=== PATIENT | male | born 1945 | race Hispanic/Latino ===

== ENCOUNTER 2017-06-30 18:56 | Inpatient (IN) | payer MEDICARE, MEDICAID ==
[2017-06-30 20:02] VITALS: BMI 22.1
[2017-07-01 07:30] LABS: ALB/GLOB RATIO 1.4 (1.0-2.1); ALKALINE PHOSPHATASE 100 U/L (38-126); ALT/SGPT 32 U/L (21-72); AST/SGOT 18 U/L (17-59); BILIRUBIN,TOTAL 0.4 mg/dl (0.2-1.3); BLOOD UREA NITROGEN 20 mg/dl (9-20); CALCIUM 8.8 mg/dL (8.4-10.2); CARBON DIOXIDE 29 mmol/L (22-30); CHLORIDE 94 mmol/L (98-107); GFR AFRICAN-AMERICAN > 60; GLUCOSE,RANDOM 90 mg/dL (75-110); POTASSIUM 4.7 MMOL/L (3.6-5.0); SODIUM 128 mmol/l (132-148); TOTAL PROTEIN 5.7 G/DL (6.3-8.2)
[2017-07-01 07:31] LABS: MEAN CELL VOLUME 86.4 fl (80.0-94.0); MEAN CORPUSCULAR HEMOGLOBIN 29.9 pg (27.0-31.0); MEAN CORPUSCULAR HGB CONC 34.6 g/dL (33.0-37.0); RED CELL DISTRIBUTION WIDTH 13.3 % (11.5-14.5); WHITE BLOOD COUNT 6.3 K/uL (4.8-10.8)
[2017-07-01 07:58] LABS: THYROID STIMULATING HORMONE 2.07 mIU/ML (0.46-4.68)
[2017-07-01 08:28] LABS: PARTIAL THROMBOPLASTIN TIME 34.8 Seconds (25.6-37.1)
[2017-07-01] MEDS: Multivitamin With Minerals Tab PO SCH (08:46)
--- NOTE | 2017-07-01 12:04 | PSY.TMCNF ---
Nursing - Vital Signs Vital Signs (Last 8 hours): Vital Signs 07/01/17 07:29 Temperature 97.3 F L Pulse Rate 75 Respiratory 20 Rate Blood Pressure 146/85 O2 Sat by Pulse 97 Oximetry Pain: 5 - Bladder Management Bladder Pattern: Normal Voiding Method: Toilet, Urinal - Bowel Management Bowel Pattern: Normal Physical Therapy - Transfers Wheelchair to Mat: Contact Guard - Pain Management Techniques: Medication - Provider Therapist: león License Number: [id number] Occupational Therapy - Arousal/Attention/Orientation Patient Orientation: Person, Place, Time, Appropriate to Age, Appropriate to Situation - Pain Alleviating Techniques: Medication Case Management - Discharge Plan Discharge Plan: Home with significant other/family Rehabilitation Plan - Treatment Plan Treatment Plan: Physical Therapy, Occupational Therapy, Speech, Dietary, Patient /Family Education - Recommendation Recommendation: Physical Therapy, Occupational Therapy, Speech, Dietary, Patient /Family Education - Discharge Plan Discharge to: Home
--- NOTE | 2017-07-01 13:52 | CP.PCM.CON ---
History of Present Illness - History of Present Illness History of Present Illness: 71 year old with subdural admitted for acute rehab Review of Systems - Musculoskeletal Musculoskeletal: Abnormal Gait, Muscle Weakness Past Patient History - Infectious Disease Hx of Infectious Diseases: None - Past Medical History & Family History Past Medical History?: Yes - Past Social History Smoking Status: Former Smoker - CARDIAC Hx Hypertension: Yes Other/Comment: hyponatremia - PULMONARY Hx Respiratory Disorders: No - NEUROLOGICAL Hx Seizures: Yes Other/Comment: h/o meningitis, subdural hematoma - HEENT Hx HEENT Problems: Yes Hx Cataracts: Yes Other/Comment: glasses for reading - RENAL Hx Chronic Kidney Disease: No - ENDOCRINE/METABOLIC Hx Endocrine Disorders: No - HEMATOLOGICAL/ONCOLOGICAL Hx AIDS: No Hx Human Immunodeficiency Virus (HIV): No - INTEGUMENTARY Hx Dermatological Problems: No - MUSCULOSKELETAL/RHEUMATOLOGICAL Hx Arthritis: Yes Hx Falls: Yes (fell on the street and collapsed 06/19/2017) - GASTROINTESTINAL Hx Gastrointestinal Disorders: No - GENITOURINARY/GYNECOLOGICAL Hx Genitourinary Disorders: No - PSYCHIATRIC Hx Substance Use: No - SURGICAL HISTORY Hx Surgeries: Yes Hx Orthopedic Surgery: Yes (LEFT SHOULDER) - ANESTHESIA Hx Anesthesia: Yes Hx Anesthesia Reactions: No Hx Malignant Hyperthermia: No Meds Allergies/Adverse Reactions: Allergies Allergy/AdvReac Type Severity Reaction Status Date / Time No Known Allergies Allergy Verified 06/30/17 20:02 - Medications Medications: Current Medications Acetaminophen (Tylenol 325mg Tab) 650 mg PO Q6 PRN PRN Reason: Headache Famotidine (Pepcid) 40 mg PO DAILY [facility] Last Admin: 07/01/17 08:46 Dose: 40 mg Folic Acid (Folic Acid) 1 mg PO DAILY [facility] Last Admin: 07/01/17 08:46 Dose: 1 mg Multivitamins/Minerals (Therapeutic-M Tab) 1 tab PO DAILY [facility] Last Admin: 07/01/17 08:46 Dose: 1 tab Sodium Chloride (Sodium Chloride Tab) 1 gm PO Q8 [facility] Last Admin: 07/01/17 05:50 Dose: 1 gm Tamsulosin HCl (Flomax) 0.4 mg PO DAILY [facility] Last Admin: 07/01/17 08:46 Dose: 0.4 mg Thiamine HCl (Vitamin B1 Tab) 100 mg PO DAILY [facility] Last Admin: 07/01/17 08:46 Dose: 100 mg Physical Exam - Head Exam Head Exam: ATRAUMATIC, NORMAL INSPECTION, NORMOCEPHALIC - Eye Exam Eye Exam: EOMI, Normal appearance, PERRL Pupil Exam: NORMAL ACCOMODATION - ENT Exam ENT Exam: Mucous Membranes Moist, Normal Exam - Neck Exam Neck exam: Positive for: Normal Inspection - Respiratory Exam Respiratory Exam: NORMAL BREATHING PATTERN - Cardiovascular Exam Cardiovascular Exam: REGULAR RHYTHM - GI/Abdominal Exam GI & Abdominal Exam: Normal Bowel Sounds - Rectal Exam Rectal Exam: NORMAL INSPECTION - Exam External exam: NORMAL EXTERNAL EXAM - Extremities Exam Extremities exam: Positive for: normal inspection - Back Exam Back exam: NORMAL INSPECTION - Neurological Exam Neurological exam: Alert, CN II-XII Intact - Psychiatric Exam Psychiatric exam: Normal Affect - Skin Skin Exam: Normal Color Results - Vital Signs Recent Vital Signs: Last Vital Signs Temp 97.3 F L 07/01/17 07:29 Pulse 75 07/01/17 07:29 Resp 20 07/01/17 07:29 BP 146/85 07/01/17 07:29 Pulse Ox 97 07/01/17 07:29 - Labs Result Diagrams: 07/01/17 06:20 07/01/17 06:20 Labs: Laboratory Results - last 24 hr 07/01/17 07/01/17 07/01/17 06:20 06:20 06:20 WBC 6.3 RBC 3.82 L Hgb 11.4 L Hct 33.0 L MCV 86.4 MCH 29.9 MCHC 34.6 RDW 13.3 Plt Count 285 PT 11.1 INR 1.1 APTT 34.8 Sodium 128 L Potassium 4.7 Chloride 94 L Carbon Dioxide 29 Anion Gap 10 BUN 20 Creatinine 0.9 Est GFR ( Amer) > 60 Est GFR (Non-Af Amer) > 60 Random Glucose 90 Calcium 8.8 Total Bilirubin 0.4 AST 18 ALT 32 Alkaline Phosphatase 100 Total Protein 5.7 L Albumin 3.3 L Globulin 2.4 Albumin/Globulin Ratio 1.4 TSH 3rd Generation 2.07 Assessment & Plan (1) CVA (cerebral vascular accident) Assessment and Plan: plan for physical, occupational, rec . speech therapy for acute rehab for overall plan of care Status: Acute (2) Foot pain Status: Acute (3) Head injury Status: Acute (4) Head injury with skull fracture Status: Acute (5) Hyponatremia Status: Acute Priority: High (6) Hyponatremia Status: Acute (7) Nasal bone fracture Status: Acute (8) Subdural hematoma Status: Acute
--- NOTE | 2017-07-01 13:55 | CP.PCM.PN ---
Subjective - Date & Time of Evaluation Date of Evaluation: 07/01/17 Time of Evaluation: 13:00 - Subjective Subjective: no acute complaint at present Objective - Vital Signs/Intake and Output Vital Signs (last 24 hours): Temp Pulse Resp BP Pulse Ox 97.3 F L 83 20 146/85 99 07/01/17 07:29 07/01/17 11:57 07/01/17 07:29 07/01/17 07:29 07/01/17 11:57 - Medications Medications: Current Medications Acetaminophen (Tylenol 325mg Tab) 650 mg PO Q6 PRN PRN Reason: Headache Famotidine (Pepcid) 40 mg PO DAILY [facility] Last Admin: 07/01/17 08:46 Dose: 40 mg Folic Acid (Folic Acid) 1 mg PO DAILY [facility] Last Admin: 07/01/17 08:46 Dose: 1 mg Multivitamins/Minerals (Therapeutic-M Tab) 1 tab PO DAILY [facility] Last Admin: 07/01/17 08:46 Dose: 1 tab Sodium Chloride (Sodium Chloride Tab) 1 gm PO Q8 [facility] Last Admin: 07/01/17 05:50 Dose: 1 gm Tamsulosin HCl (Flomax) 0.4 mg PO DAILY [facility] Last Admin: 07/01/17 08:46 Dose: 0.4 mg Thiamine HCl (Vitamin B1 Tab) 100 mg PO DAILY [facility] Last Admin: 07/01/17 08:46 Dose: 100 mg - Labs Labs: 07/01/17 06:20 07/01/17 06:20 PT 11.1 Seconds (9.8-13.1) 07/01/17 06:20 INR 1.1 (0.9-1.2) 07/01/17 06:20 APTT 34.8 Seconds (25.6-37.1) 07/01/17 06:20 - Head Exam Head Exam: ATRAUMATIC, NORMAL INSPECTION, NORMOCEPHALIC - Eye Exam Eye Exam: EOMI, Normal appearance, PERRL Pupil Exam: NORMAL ACCOMODATION - ENT Exam ENT Exam: Mucous Membranes Moist, Normal Exam - Neck Exam Neck Exam: Normal Inspection - Respiratory Exam Respiratory Exam: NORMAL BREATHING PATTERN - Cardiovascular Exam Cardiovascular Exam: REGULAR RHYTHM - GI/Abdominal Exam GI & Abdominal Exam: Normal Bowel Sounds - Rectal Exam Rectal Exam: NORMAL INSPECTION - Exam External exam: NORMAL EXTERNAL EXAM - Extremities Exam Extremities Exam: Normal Capillary Refill, Normal Inspection - Neurological Exam Neurological Exam: Alert, Awake Neuro motor strength exam: Left Upper Extremity: 3, Right Upper Extremity: 3, Left Lower Extremity: 3, Right Lower Extremity: 3 - Psychiatric Exam Psychiatric exam: Normal Affect, Normal Mood - Skin Skin Exam: Normal Color Assessment and Plan (1) CVA (cerebral vascular accident) Assessment & Plan: plan for Pt, Ot , REc, speech Status: Acute (2) Foot pain Status: Acute (3) Head injury Status: Acute (4) Head injury with skull fracture Status: Acute (5) Hyponatremia Status: Acute (6) Hyponatremia Status: Acute (7) Nasal bone fracture Status: Acute (8) Subdural hematoma Status: Acute Physiatry Overall Plan of Care - Overall Plan of Care Estimated Length of Stay in Weeks: 2 Rehab Impairment: Mobility, Gait, Balance, Coordination Etiologic Diagnosis: Cerebrovascular Accident Rehab/Medical Prognosis: Fair - Anticipated Interventions Physical Therapy:: Yes Occupational Therapy:: Yes Speech Therapy:: Yes Recreational Therapy:: Yes - Therapy Goals Bed Mobility: Independent Ambulation: Independent Functional Positional Changes:: Independent - Functional Outcomes Functional Outcomes: fair - Discharge Plan Discharge Destination: Home
--- NOTE | 2017-07-01 17:02 | CP.PCM.HP ---
Past Patient History - Infectious Disease Hx of Infectious Diseases: None - Past Medical History & Family History Past Medical History?: Yes - Past Social History Smoking Status: Former Smoker - CARDIAC Hx Hypertension: Yes - PULMONARY Hx Respiratory Disorders: No - NEUROLOGICAL Hx Seizures: Yes Other/Comment: h/o meningitis, subdural hematoma - HEENT Hx HEENT Problems: Yes Hx Cataracts: Yes Other/Comment: glasses for reading - RENAL Hx Chronic Kidney Disease: No - ENDOCRINE/METABOLIC Hx Endocrine Disorders: No - HEMATOLOGICAL/ONCOLOGICAL Hx AIDS: No Hx Human Immunodeficiency Virus (HIV): No - INTEGUMENTARY Hx Dermatological Problems: No - MUSCULOSKELETAL/RHEUMATOLOGICAL Hx Arthritis: Yes Hx Falls: Yes (fell on the street and collapsed 06/19/2017) - GASTROINTESTINAL Hx Gastrointestinal Disorders: No - GENITOURINARY/GYNECOLOGICAL Hx Genitourinary Disorders: No - PSYCHIATRIC Hx Substance Use: No - SURGICAL HISTORY Hx Surgeries: Yes Hx Orthopedic Surgery: Yes (LEFT SHOULDER) - ANESTHESIA Hx Anesthesia: Yes Hx Anesthesia Reactions: No Hx Malignant Hyperthermia: No Meds Allergies/Adverse Reactions: Allergies Allergy/AdvReac Type Severity Reaction Status Date / Time No Known Allergies Allergy Verified 06/30/17 20:02 Results - Vital Signs Recent Vital Signs: Last Vital Signs Temp 97.3 F L 07/01/17 07:29 Pulse 83 07/01/17 11:57 Resp 20 07/01/17 07:29 BP 146/85 07/01/17 07:29 Pulse Ox 99 07/01/17 11:57 - Labs Result Diagrams: 07/01/17 06:20 07/01/17 06:20 Labs: Laboratory Results - last 24 hr 07/01/17 07/01/17 07/01/17 06:20 06:20 06:20 WBC 6.3 RBC 3.82 L Hgb 11.4 L Hct 33.0 L MCV 86.4 MCH 29.9 MCHC 34.6 RDW 13.3 Plt Count 285 PT 11.1 INR 1.1 APTT 34.8 Sodium 128 L Potassium 4.7 Chloride 94 L Carbon Dioxide 29 Anion Gap 10 BUN 20 Creatinine 0.9 Est GFR ( Amer) > 60 Est GFR (Non-Af Amer) > 60 Random Glucose 90 Serum Osmolality Calcium 8.8 Total Bilirubin 0.4 AST 18 ALT 32 Alkaline Phosphatase 100 Total Protein 5.7 L Albumin 3.3 L Globulin 2.4 Albumin/Globulin Ratio 1.4 TSH 3rd Generation 2.07 07/01/17 13:40 WBC RBC Hgb Hct MCV MCH MCHC RDW Plt Count PT INR APTT Sodium Potassium Chloride Carbon Dioxide Anion Gap BUN Creatinine Est GFR ( Amer) Est GFR (Non-Af Amer) Random Glucose Serum Osmolality 359 H Calcium Total Bilirubin AST ALT Alkaline Phosphatase Total Protein Albumin Globulin Albumin/Globulin Ratio TSH 3rd Generation
[2017-07-01] MEDS: Sodium Chloride 0.9% 1,000 ML IV SCH (23:09)
[2017-07-02] MEDS: Sodium Chloride 0.9% 1,000 ML IV SCH ×3 (07:00→16:30)
[2017-07-02 07:14] LABS: BLOOD UREA NITROGEN 19 mg/dl (9-20); CALCIUM 8.6 mg/dL (8.4-10.2); CARBON DIOXIDE 30 mmol/L (22-30); CHLORIDE 92 mmol/L (98-107); GFR AFRICAN-AMERICAN > 60; GLUCOSE,RANDOM 85 mg/dL (75-110); POTASSIUM 4.5 MMOL/L (3.6-5.0); SODIUM 126 mmol/l (132-148)
[2017-07-02] MEDS: Multivitamin With Minerals Tab PO SCH (08:35)
--- NOTE | 2017-07-02 21:32 | CP.PCM.PN ---
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 vs subdural hematoma d/c ns ivf restrict fluids to 1 lit/day c/w nacl 1 gm po q 8 hrs nepro 1 can po bid bmp daily x 3 days consider tolvaptan if serum na <125 with above measures Objective - Vital Signs/Intake and Output Vital Signs (last 24 hours): Temp Pulse Resp BP Pulse Ox 98.4 F 72 20 152/79 H 98 07/02/17 20:16 07/02/17 20:16 07/02/17 20:16 07/02/17 20:16 07/02/17 20:16 - Medications Medications: Current Medications Acetaminophen (Tylenol 325mg Tab) 650 mg PO Q6 PRN PRN Reason: Headache Last Admin: 07/02/17 10:48 Dose: 650 mg Famotidine (Pepcid) 40 mg PO DAILY [facility] Last Admin: 07/02/17 08:34 Dose: 40 mg Folic Acid (Folic Acid) 1 mg PO DAILY [facility] Last Admin: 07/02/17 08:35 Dose: 1 mg Multivitamins/Minerals (Therapeutic-M Tab) 1 tab PO DAILY [facility] Last Admin: 07/02/17 08:35 Dose: 1 tab Sodium Chloride (Sodium Chloride Tab) 1 gm PO Q8 [facility] Last Admin: 07/02/17 21:10 Dose: 1 gm Tamsulosin HCl (Flomax) 0.4 mg PO DAILY [facility] Last Admin: 07/02/17 08:35 Dose: 0.4 mg Thiamine HCl (Vitamin B1 Tab) 100 mg PO DAILY [facility] Last Admin: 07/02/17 08:35 Dose: 100 mg - Labs Labs: 07/01/17 06:20 07/02/17 06:15 PT 11.1 Seconds (9.8-13.1) 07/01/17 06:20 INR 1.1 (0.9-1.2) 07/01/17 06:20 APTT 34.8 Seconds (25.6-37.1) 07/01/17 06:20
--- NOTE | 2017-07-03 03:47 | CON ---
DATE: 07/02/2017 LOCATION: The patient is located in acute rehab in [place], room 620, bed 1. REQUESTED BY: Dr. Bibiana Locke. REASON FOR RENAL FOLLOWUP: Hyponatremia, SIADH, hypertension, for further evaluation. HISTORY OF PRESENT ILLNESS: The patient is a 71-year-old elderly male with past medical history significant for hypertension, EtOH abuse, history of falls, and questionable seizure disorder, and subdural hematoma, who was recently admitted to [facility] on 06/19 after questionable fall and the patient was started on Keppra and tapered off Dilantin. Prior to the initiation of the Keppra, his serum sodium was 132 to 135 and subsequently the patient was discharged home on 06/26, and the patient's family found he has altered mental status and unsteady gait, and the patient was sent back to the hospital for evaluation by the family and the patient was found to have a serum sodium of 110. Subsequently, the patient was transferred to ICU from the medical floor for hypertonic saline. The patient was started on 3% hypertonic saline and his serum sodium gradually improved to 125 in 48 hours and also received tolvaptan 15 mg x2 in 2 days, day one 15 mg and also on second day 15 mg and subsequently his serum sodium increased to 135. Now, the patient was transferred from [facility] to acute rehab in [place]. The patient denies any complaints. Denies any chest pain, palpitation. Denies any fever, cough. No abdominal pain. No nausea, vomiting, diarrhea. The patient is receiving IV fluids, normal saline at 125 mL per hour for possible dehydration. The patient was found to have low serum sodium and now renal consult requested for the evaluation. The patient is not in acute distress. PHYSICAL EXAMINATION GENERAL: The patient is a 71-year-old elderly male, moderately built, moderately nourished, not in acute distress. VITAL SIGNS: Blood pressure 152/79, pulse 72, respiration 20, temperature 98.4, saturation 98%. Height 5 feet 8 inches and weight is 125 pounds. HEENT: Pupils normal, reactive to light and accommodation. Conjunctivae pink. Sclerae anicteric. Tongue is moist. Trachea is midline. NECK: Text. CVS: [place] in the fifth intercostal space, also in the midclavicular line. S1, S2 audible. No murmur or gallop. LUNGS: Symmetric on both side. Bilateral breath sounds. Clear on auscultation. ABDOMEN: Normal in appearance, soft. No guarding. No rigidity. No hepatosplenomegaly. EXTREMITIES: No cyanosis, no clubbing, no edema. CAN CRIMPER: The patient is alert, awake, oriented x2 to 3. Sensory and motor system is within normal limits. CURRENT MEDICATIONS: Include as follows, Flomax 0.4 mg p.o. daily and folic acid 1 mg p.o. daily and Pepcid 40 mg p.o. daily, and sodium chloride tablet 1 g p.o. q.8 hours, and multivitamin 1 tablet daily, Tylenol and thiamine 100 mg p.o. daily. LABORATORY DATA: Include as follows, as of 07/01/2017, WBC 6.3, hemoglobin 11.4, hematocrit is 33, and platelets 285. PT 11.1, PTT34.8. Sodium 128, potassium 4.7, chloride 94, CO2 of 29, BUN 20, creatinine 0.9, glucose 90, calcium 8.8, total bilirubin 0.4. AST 18, ALT 32, alkaline phosphatase 100. Total protein 5.7, albumin 3.3. TSH is 2.07. Other laboratory data, 07/01/2017, serum osmolality 359, most likely this is a lab error and also urine osmolality 559, and urine sodium is 73, and his repeat BMP as of 07/02/2017, sodium 126, potassium 4.5, chloride 92, CO2 of 30, BUN 19, creatinine 0.8, glucose 85, and calcium is 8.6, and his repeat serum osmolality stat was 265. In summary, the patient is a 71-year-old elderly male with a history of EtOH abuse, hypertension, recurrent falls, and also subdural hematoma with low serum sodium after starting Keppra and now the patient is off Keppra, but still serum sodium is low and urine osmolality is very high with urine sodium more than 20. 1. Hyponatremia, most likely secondary to SIADH, secondary to subdural hematoma. Consider to rule out underlying malignancy in the setting of SIADH. 2. Hypertension. Blood pressure is stable. 3. Debility. Continue physical therapy as per the rehab recommendations. PLAN: Continue sodium chloride tablet 1 g p.o. q.8 hours and also we will add Nepro 1 can p.o. b.i.d. to increase the protein in the diet and if serum sodium goes down below 125, we will consider to give tolvaptan 15 mg p.o. x1 dose. Repeat BMP in a.m. and discontinued normal saline IV fluids. We will followup with you. Thank you for allowing me to participate in your patient's care and discuss case with Dr. Bibiana Locke in rounds. Kevin Mullins MD
[2017-07-03 07:24] LABS: BLOOD UREA NITROGEN 20 mg/dl (9-20); CALCIUM 8.5 mg/dL (8.4-10.2); CARBON DIOXIDE 30 mmol/L (22-30); CHLORIDE 88 mmol/L (98-107); GFR AFRICAN-AMERICAN > 60; GLUCOSE,RANDOM 81 mg/dL (75-110); POTASSIUM 4.7 MMOL/L (3.6-5.0); SODIUM 121 mmol/l (132-148)
[2017-07-03] MEDS: Multivitamin With Minerals Tab PO SCH (08:41)
[2017-07-03] MEDS ORDERED: Tolvaptan 15 MG TAB PO ONE (11:06)
--- NOTE | 2017-07-03 12:33 | CP.PCM.PN ---
Subjective - Date & Time of Evaluation Date of Evaluation: 07/03/17 Time of Evaluation: 12:10 Objective - Vital Signs/Intake and Output Vital Signs (last 24 hours): Temp Pulse Resp BP Pulse Ox 97.3 F L 79 20 144/82 99 07/03/17 07:52 07/03/17 07:52 07/03/17 07:52 07/03/17 07:52 07/03/17 07:52 Intake and Output: 07/03/17 07/03/17 06:59 18:59 Intake Total 300 Output Total 1000 Balance -700 - Medications Medications: Current Medications Acetaminophen (Tylenol 325mg Tab) 650 mg PO Q6 PRN PRN Reason: Headache Last Admin: 07/02/17 10:48 Dose: 650 mg Famotidine (Pepcid) 40 mg PO DAILY [facility] Last Admin: 07/03/17 08:41 Dose: 40 mg Folic Acid (Folic Acid) 1 mg PO DAILY [facility] Last Admin: 07/03/17 08:41 Dose: 1 mg Multivitamins/Minerals (Therapeutic-M Tab) 1 tab PO DAILY [facility] Last Admin: 07/03/17 08:41 Dose: 1 tab Sodium Chloride (Sodium Chloride Tab) 1 gm PO Q8 [facility] Last Admin: 07/03/17 06:29 Dose: 1 gm Tamsulosin HCl (Flomax) 0.4 mg PO DAILY [facility] Last Admin: 07/03/17 08:41 Dose: 0.4 mg Thiamine HCl (Vitamin B1 Tab) 100 mg PO DAILY [facility] Last Admin: 07/03/17 08:42 Dose: 100 mg - Labs Labs: 07/01/17 06:20 07/03/17 06:25 PT 11.1 Seconds (9.8-13.1) 07/01/17 06:20 INR 1.1 (0.9-1.2) 07/01/17 06:20 APTT 34.8 Seconds (25.6-37.1) 07/01/17 06:20
--- NOTE | 2017-07-03 13:13 | CP.PCM.CON ---
History of Present Illness - History of Present Illness History of Present Illness: 71 year old male with PMH of HTN, CVA, subdural hemorrhage, seizures was consulted for elongated toenails x10. Patient states that when they get extremely long, the nails bother him, especially when wearing socks. Patient is seen resting comfortably out of bed, in a chair. He is alert and awake and in NAD. He denies n/v/sob/cp/chill or f. SH: former smoker 1-2packs/day, denies alcohol use or elicited drug use Allergies: NKDA Meds: see list FH: mother diabetes, father heart disease Past Patient History - Infectious Disease Hx of Infectious Diseases: None - Past Medical History & Family History Past Medical History?: Yes - Past Social History Smoking Status: Former Smoker - CARDIAC Hx Hypertension: Yes - PULMONARY Hx Respiratory Disorders: No - NEUROLOGICAL Hx Seizures: Yes Other/Comment: h/o meningitis, subdural hematoma - HEENT Hx HEENT Problems: Yes Hx Cataracts: Yes Other/Comment: glasses for reading - RENAL Hx Chronic Kidney Disease: No - ENDOCRINE/METABOLIC Hx Endocrine Disorders: No - HEMATOLOGICAL/ONCOLOGICAL Hx AIDS: No Hx Human Immunodeficiency Virus (HIV): No - INTEGUMENTARY Hx Dermatological Problems: No - MUSCULOSKELETAL/RHEUMATOLOGICAL Hx Arthritis: Yes Hx Falls: Yes (fell on the street and collapsed 06/19/2017) - GASTROINTESTINAL Hx Gastrointestinal Disorders: No - GENITOURINARY/GYNECOLOGICAL Hx Genitourinary Disorders: No - PSYCHIATRIC Hx Substance Use: No - SURGICAL HISTORY Hx Surgeries: Yes Hx Orthopedic Surgery: Yes (LEFT SHOULDER) - ANESTHESIA Hx Anesthesia: Yes Hx Anesthesia Reactions: No Hx Malignant Hyperthermia: No Meds Allergies/Adverse Reactions: Allergies Allergy/AdvReac Type Severity Reaction Status Date / Time No Known Allergies Allergy Verified 06/30/17 20:02 - Medications Medications: Current Medications Acetaminophen (Tylenol 325mg Tab) 650 mg PO Q6 PRN PRN Reason: Headache Last Admin: 07/02/17 10:48 Dose: 650 mg Famotidine (Pepcid) 40 mg PO DAILY [facility] Last Admin: 07/03/17 08:41 Dose: 40 mg Folic Acid (Folic Acid) 1 mg PO DAILY [facility] Last Admin: 07/03/17 08:41 Dose: 1 mg Multivitamins/Minerals (Therapeutic-M Tab) 1 tab PO DAILY [facility] Last Admin: 07/03/17 08:41 Dose: 1 tab Sodium Chloride (Sodium Chloride Tab) 1 gm PO Q8 [facility] Last Admin: 07/03/17 06:29 Dose: 1 gm Tamsulosin HCl (Flomax) 0.4 mg PO DAILY [facility] Last Admin: 07/03/17 08:41 Dose: 0.4 mg Thiamine HCl (Vitamin B1 Tab) 100 mg PO DAILY [facility] Last Admin: 07/03/17 08:42 Dose: 100 mg Physical Exam - Constitutional Appears: Well, Non-toxic, No Acute Distress - Extremities Exam Additional comments: Vasc: DP and PT faintly palpable, temperature is cool to cool, no edema noted, 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 x10 Ortho: no pain with palpation of the lower extremity Neuro: gross sensation diminished bilaterally Derm: xerosis of the entire lower extremity, no open lesions, nails 1-10 elongated - Neurological Exam Neurological exam: Alert - Psychiatric Exam Psychiatric exam: Normal Affect, Normal Mood Results - Vital Signs Recent Vital Signs: Last Vital Signs Temp 97.3 F L 07/03/17 07:52 Pulse 79 07/03/17 07:52 Resp 20 07/03/17 07:52 BP 144/82 07/03/17 07:52 Pulse Ox 99 07/03/17 07:52 - Labs Result Diagrams: 07/01/17 06:20 07/03/17 06:25 Labs: Laboratory Results - last 24 hr 07/02/17 07/03/17 20:00 06:25 Sodium 121 L Potassium 4.7 Chloride 88 L Carbon Dioxide 30 Anion Gap 8 L BUN 20 Creatinine 0.8 Est GFR ( Amer) > 60 Est GFR (Non-Af Amer) > 60 Random Glucose 81 Serum Osmolality 265 L Calcium 8.5 Assessment & Plan - Assessment and Plan (Free Text) Assessment: 71 year old male with PMH of HTN, CVA, subdural hemorrhage, seizures with elongated toenails x10. Plan: -Patient was seen and examined -Charts, labs, vitals reviewed (afebrile) -Discuss plan with attending Dr. Rodriguez -Elongated toenails x10 were debrided to normal length using a nail nipper without incident. Patient tolerated the procedure well -Thank you for the consult
--- NOTE | 2017-07-03 18:42 | PN ---
SUBJECTIVE: The patient is feeling fine, 71-year-old, admitted because status post subdural hematoma. The patient sitting in the chair, following commands, no acute complaints noted at present. PHYSICAL EXAMINATION: VITAL SIGNS: Stable. NECK: Supple. CHEST: Symmetrical. HEART: Sounds S1 and S2. ABDOMEN: Benign. EXTREMITIES: No clubbing, cyanosis, or edema. IMPRESSION: 1. Subdural hematoma, ICD code of 02.22. 2. History of seizures. 3. Hypertension. 4. Hyponatremia. 5. History of falls, cataract. 6. History of meningitis. PLAN: For physical therapy, occupational therapy, speech therapy, range of motion strengthening, transfers, ambulation, gait training, recreational therapy, continue strengthening and monitor any problems with pain. Andrzej Lucas MD
--- NOTE | 2017-07-03 20:34 | CP.PCM.PN ---
Subjective - Date & Time of Evaluation Date of Evaluation: 07/03/17 Time of Evaluation: 20:34 - Subjective Subjective: pt is seen and examined, follow up consult is dictated #[id number] Objective - Vital Signs/Intake and Output Vital Signs (last 24 hours): Temp Pulse Resp BP Pulse Ox 97.3 F L 79 20 144/82 99 07/03/17 07:52 07/03/17 07:52 07/03/17 07:52 07/03/17 07:52 07/03/17 07:52 Intake and Output: 07/03/17 07/04/17 18:59 06:59 Intake Total 800 Balance 800 - Medications Medications: Current Medications Acetaminophen (Tylenol 325mg Tab) 650 mg PO Q6 PRN PRN Reason: Headache Last Admin: 07/02/17 10:48 Dose: 650 mg Famotidine (Pepcid) 40 mg PO DAILY [facility] Last Admin: 07/03/17 08:41 Dose: 40 mg Folic Acid (Folic Acid) 1 mg PO DAILY [facility] Last Admin: 07/03/17 08:41 Dose: 1 mg Multivitamins/Minerals (Therapeutic-M Tab) 1 tab PO DAILY [facility] Last Admin: 07/03/17 08:41 Dose: 1 tab Sodium Chloride (Sodium Chloride Tab) 1 gm PO Q8 [facility] Last Admin: 07/03/17 14:03 Dose: 1 gm Tamsulosin HCl (Flomax) 0.4 mg PO DAILY [facility] Last Admin: 07/03/17 08:41 Dose: 0.4 mg Thiamine HCl (Vitamin B1 Tab) 100 mg PO DAILY [facility] Last Admin: 07/03/17 08:42 Dose: 100 mg - Labs Labs: 07/01/17 06:20 07/03/17 06:25 PT 11.1 Seconds (9.8-13.1) 07/01/17 06:20 INR 1.1 (0.9-1.2) 07/01/17 06:20 APTT 34.8 Seconds (25.6-37.1) 07/01/17 06:20
--- NOTE | 2017-07-04 07:28 | PN ---
The patient has located in [facility] in room #620, bed 1. REQUESTED BY: Dr. Bibiana Malone. REASON FOR FOLLOWUP: Hyponatremia and SIADH. SUBJECTIVE: Mr. Knox is a 71-year-old elderly male with a history of hypertension, EtOH abuse, history of falls and subdural hematoma who was recently admitted on 06/26/2017 to [facility] after he was discharged from the hospital on the same day with altered mental status and unsteady gait. The patient was found to have hyponatremia, serum sodium 110 with altered mental status and treated with hypertonic saline and tolvaptan. The patient was subsequently transferred to acute rehab. The patient was started on IV fluids, normal saline and his serum sodium gradually decreasing and his serum sodium this morning is 121. The patient is not in acute distress. Denies any headache or dizziness. Denies any chest pian, palpitation, not in acute distress. No nausea or vomiting. No diarrhea. The patient is off IV fluids since yesterday last night. The patient was given 1 dose of tolvaptan this morning. PHYSICAL EXAMINATION VITAL SIGNS: As follows, blood pressure 138/79, pulse 76, respirations 20, temperature 97 and saturation 99%. Height 5 feet 8 inches, and weight is 145 pounds. GENERAL: Mr. Knox is 71 years old elderly male, moderately built, moderately nourished, not in acute distress. HEENT: Pupils normal, reactive to light and accommodation. Conjunctivae pink. Sclerae anicteric. Tongue is moist. Trachea is midline. LUNGS: Symmetric on both side. Bilateral breath sounds present. Clear on auscultation. CVS: [place] at the fifth intercostal space, midclavicular line, half inch medial. S1 and S2 audible. No murmur or gallop. ABDOMEN: Normal in appearance, soft and tympanitic. No guarding. No rigidity. No hepatosplenomegaly. CONTROL DIRECTOR: The patient is alert, awake and oriented x2-3. Sensory and motor system is within normal limits. EXTREMITIES: No cyanosis. No clubbing. No edema. CURRENT MEDICATIONS: Include as follows, Flomax 0.4 mg p.o. daily, folic acid 1 mg p.o. daily, Pepcid 40 mg p.o. daily, sodium chloride tablet 1 g p.o. q.8 hours, multivitamin 1 tablet p.o. daily, Tylenol, and thiamine 100 mg p.o. daily. LABORATORY DATA: Include as follows, as of 07/02/2017, serum sodium is 126, as of 07/03/2017 to 121, 07/01/2017 serum sodium is 128, and prior to the transfer, his serum sodium was 125. ASSESSMENT: In summary, Mr. Knox is 71 years old elderly male with history of hypertension, EtOH abuse, recurrent falls with subdural hematoma and now with hyponatremia. Hyponatremia secondary to hypotonic euvolemic hyponatremia, picture is consist with syndrome of inappropriate antidiuretic hormone most likely secondary to subdural hematoma, rule out underlying malignancy also. PLAN: 1. Continue sodium chloride tablet 1 tablet q.8 hours and tolvaptan 15 mg p.o , x1 dose given this morning and repeat BMP in a.m. 2. Hypertension, blood pressure is stable. 3. Debility. Continue physical therapy as per the rehab physician. We will follow with you. Thank you for allowing me to participate in your patient's care. Kevin Mullins MD
[2017-07-04] MEDS: Multivitamin With Minerals Tab PO SCH (08:26)
[2017-07-04 08:56] LABS: BLOOD UREA NITROGEN 29 mg/dl (9-20); CALCIUM 9.1 mg/dL (8.4-10.2); CARBON DIOXIDE 33 mmol/L (22-30); CHLORIDE 95 mmol/L (98-107); GFR AFRICAN-AMERICAN > 60; GLUCOSE,RANDOM 87 mg/dL (75-110); POTASSIUM 4.8 MMOL/L (3.6-5.0); SODIUM 133 mmol/l (132-148)
--- NOTE | 2017-07-04 13:41 | CP.PCM.PN ---
Subjective - Date & Time of Evaluation Date of Evaluation: 07/04/17 Time of Evaluation: 13:40 - Subjective Subjective: pt is seen and examined ,follow up consult is dictated #[id number] Objective - Vital Signs/Intake and Output Vital Signs (last 24 hours): Temp Pulse Resp BP Pulse Ox 96.7 F L 91 H 18 98/70 L 97 07/04/17 10:12 07/04/17 13:25 07/04/17 13:25 07/04/17 13:25 07/04/17 10:15 - Medications Medications: Current Medications Acetaminophen (Tylenol 325mg Tab) 650 mg PO Q6 PRN PRN Reason: Headache Last Admin: 07/04/17 10:12 Dose: 650 mg Famotidine (Pepcid) 40 mg PO DAILY [facility] Last Admin: 07/04/17 08:26 Dose: 40 mg Folic Acid (Folic Acid) 1 mg PO DAILY [facility] Last Admin: 07/04/17 08:26 Dose: 1 mg Multivitamins/Minerals (Therapeutic-M Tab) 1 tab PO DAILY [facility] Last Admin: 07/04/17 08:26 Dose: 1 tab Sodium Chloride (Sodium Chloride Tab) 1 gm PO Q8 [facility] Last Admin: 07/04/17 13:23 Dose: 1 gm Tamsulosin HCl (Flomax) 0.4 mg PO DAILY [facility] Last Admin: 07/04/17 08:26 Dose: 0.4 mg Thiamine HCl (Vitamin B1 Tab) 100 mg PO DAILY [facility] Last Admin: 07/04/17 08:26 Dose: 100 mg - Labs Labs: 07/01/17 06:20 07/04/17 06:30 PT 11.1 Seconds (9.8-13.1) 07/01/17 06:20 INR 1.1 (0.9-1.2) 07/01/17 06:20 APTT 34.8 Seconds (25.6-37.1) 07/01/17 06:20
--- NOTE | 2017-07-04 20:20 | PN ---
LOCATION: The patient is located in room 620, acute rehab, in [facility]. SUBJECTIVE: The patient is a 71-year-old elderly male with a history of EtOH abuse, hypertension, recurrent falls and subdural hematoma, was transferred to subacute rehab after treating for hyponatremia and SIADH. The patient is not in acute distress. The patient was found to have worsening sodium and found to have serum sodium of 121 and started on tolvaptan 15 mg p.o. x1 dose and also serum sodium is 133. The patient is not in acute distress. Denies any headache, dizziness. Denies any chest pain or palpitation. Denies any fever or cough. No abdominal pain. No nausea, vomiting, or diarrhea. PHYSICAL EXAMINATION: VITAL SIGNS: This morning blood pressure 111/68, pulse 72, respiration 20, temperature 97.6 and this afternoon blood pressure 98/70. GENERAL: The patient is a 71-year-old elderly male, moderately built, moderately nourished, not in acute distress. HEENT: Pupils normal, reactive to light and accommodation. Conjunctivae pink. Sclerae anicteric. Tongue is moist. Trachea is midline. LUNGS: Symmetric on both side. Bilateral breath sounds present. Clear on auscultation. CARDIOVASCULAR: [place] in the fifth intercostal space, also in the midclavicular line. S1 and S2 audible. No murmur or gallop. ABDOMEN: Normal in appearance, soft and tympanic. No guarding. No rigidity. No hepatosplenomegaly. CENTRAL NERVOUS SYSTEM: The patient is alert, awake and oriented x2-3. Sensory and motor system is grossly within normal limits. EXTREMITIES: No cyanosis, no clubbing, no edema. MEDICATIONS: Include as follows: Flomax 0.4 mg daily, folic acid 1 mg daily, Pepcid 40 mg daily, sodium chloride tablet 1 g p.o. q. 8 hours, multivitamins 1 tablet daily, Tylenol and also thiamine 100 mg p.o. daily. LABORATORY DATA: Include as follows: As of 07/04/2017, sodium 133, potassium 4.8, chloride 95, CO2 of 33, BUN 29, creatinine 0.9, glucose 87, calcium 9.1. In summary, the patient is a 71-year-old elderly male with a history of hypertension, EtOH abuse, subdural hematoma, recurrent falls with SIADH. 1. Hyponatremia, secondary to SIADH. Continue sodium chloride tablet 1 p.o. q. 8 hours, and we will also start D5W of 50 mL/hour for 12 hours due to slightly high serum sodium raise in 24 hours. The goal is about 10 mEq for 24 hours re-lowering the serum sodium slightly. 2. Hypertension. Blood pressure is on the low side. Hold antihypertensive medications and also I encouraged p.o. fluid intake today. Repeat BMP in a.m. 3. Continue his current medication of Flomax, folic acid, Pepcid, multivitamin, and thiamine. Continue physical therapy. We will follow with you. Thank you for allowing me to participate in your patient's care. Kevin Mullins MD
--- NOTE | 2017-07-04 23:15 | CP.PCM.PN ---
Subjective - Date & Time of Evaluation Date of Evaluation: 07/04/17 Time of Evaluation: 15:15 Objective - Vital Signs/Intake and Output Vital Signs (last 24 hours): Temp Pulse Resp BP Pulse Ox 97.9 F 81 20 96/58 L 97 07/04/17 20:26 07/04/17 20:26 07/04/17 20:26 07/04/17 20:26 07/04/17 20:26 Intake and Output: 07/04/17 07/05/17 18:59 06:59 Intake Total 1380 Output Total 500 Balance 880 - Medications Medications: Current Medications Acetaminophen (Tylenol 325mg Tab) 650 mg PO Q6 PRN PRN Reason: Headache Last Admin: 07/04/17 10:12 Dose: 650 mg Famotidine (Pepcid) 40 mg PO DAILY [facility] Last Admin: 07/04/17 08:26 Dose: 40 mg Folic Acid (Folic Acid) 1 mg PO DAILY [facility] Last Admin: 07/04/17 08:26 Dose: 1 mg Dextrose (Dextrose 5% In Water 1000 Ml) 500 mls @ 50 mls/hr IV .Q10H [facility] Stop: 07/05/17 02:18 Last Admin: 07/04/17 15:11 Dose: 50 mls/hr Multivitamins/Minerals (Therapeutic-M Tab) 1 tab PO DAILY [facility] Last Admin: 07/04/17 08:26 Dose: 1 tab Sodium Chloride (Sodium Chloride Tab) 1 gm PO Q8 [facility] Last Admin: 07/04/17 21:07 Dose: 1 gm Tamsulosin HCl (Flomax) 0.4 mg PO DAILY [facility] Last Admin: 07/04/17 08:26 Dose: 0.4 mg Thiamine HCl (Vitamin B1 Tab) 100 mg PO DAILY [facility] Last Admin: 07/04/17 08:26 Dose: 100 mg - Labs Labs: 07/01/17 06:20 07/04/17 06:30 PT 11.1 Seconds (9.8-13.1) 07/01/17 06:20 INR 1.1 (0.9-1.2) 07/01/17 06:20 APTT 34.8 Seconds (25.6-37.1) 07/01/17 06:20
[2017-07-05] MEDS: Multivitamin With Minerals Tab PO SCH (08:59)
[2017-07-05 10:22] LABS: BLOOD UREA NITROGEN 34 mg/dl (9-20); CALCIUM 8.8 mg/dL (8.4-10.2); CARBON DIOXIDE 32 mmol/L (22-30); CHLORIDE 95 mmol/L (98-107); GFR AFRICAN-AMERICAN > 60; GLUCOSE,RANDOM 91 mg/dL (75-110); POTASSIUM 4.1 MMOL/L (3.6-5.0); SODIUM 132 mmol/l (132-148)
--- NOTE | 2017-07-05 12:49 | CP.PCM.PN ---
Subjective - Date & Time of Evaluation Date of Evaluation: 07/05/17 Time of Evaluation: 12:47 - Subjective Subjective: pt is seen and examined, follow up consult is dictated #[id number] bmp in am, check psa, cea, ca19-9, afp in am d5w 50ml /hr 12 hrs Objective - Vital Signs/Intake and Output Vital Signs (last 24 hours): Temp Pulse Resp BP Pulse Ox 97.8 F 84 20 125/59 L 97 07/05/17 08:00 07/05/17 08:00 07/05/17 08:00 07/05/17 08:00 07/05/17 08:00 Intake and Output: 07/05/17 07/05/17 06:59 18:59 Intake Total 900 Output Total 700 Balance 200 - Medications Medications: Current Medications Acetaminophen (Tylenol 325mg Tab) 650 mg PO Q6 PRN PRN Reason: Headache Last Admin: 07/04/17 10:12 Dose: 650 mg Famotidine (Pepcid) 40 mg PO DAILY [facility] Last Admin: 07/05/17 08:59 Dose: 40 mg Folic Acid (Folic Acid) 1 mg PO DAILY [facility] Last Admin: 07/05/17 09:00 Dose: 1 mg Dextrose (Dextrose 5% In Water 1000 Ml) 1,000 mls @ 50 mls/hr IV .Q20H [facility] Stop: 07/06/17 11:17 Last Admin: 07/05/17 11:44 Dose: 50 mls/hr Multivitamins/Minerals (Therapeutic-M Tab) 1 tab PO DAILY [facility] Last Admin: 07/05/17 08:59 Dose: 1 tab Sodium Chloride (Sodium Chloride Tab) 1 gm PO Q8 [facility] Last Admin: 07/05/17 06:03 Dose: 1 gm Tamsulosin HCl (Flomax) 0.4 mg PO DAILY [facility] Last Admin: 07/05/17 08:59 Dose: 0.4 mg Thiamine HCl (Vitamin B1 Tab) 100 mg PO DAILY [facility] Last Admin: 07/05/17 08:59 Dose: 100 mg - Labs Labs: 07/01/17 06:20 07/05/17 09:30 PT 11.1 Seconds (9.8-13.1) 07/01/17 06:20 INR 1.1 (0.9-1.2) 07/01/17 06:20 APTT 34.8 Seconds (25.6-37.1) 07/01/17 06:20
[2017-07-05] MEDS ORDERED: DEXTROSE 5% IV SCH (13:31)
[2017-07-05] MEDS ORDERED: WATER IV SCH (13:31)
--- NOTE | 2017-07-05 15:17 | CP.PCM.PN ---
Subjective - Date & Time of Evaluation Date of Evaluation: 07/04/17 Time of Evaluation: 08:00 - Subjective Subjective: no acute complaints at present Objective - Vital Signs/Intake and Output Vital Signs (last 24 hours): Temp Pulse Resp BP Pulse Ox 97.8 F 84 20 125/59 L 97 07/05/17 08:00 07/05/17 08:00 07/05/17 08:00 07/05/17 08:00 07/05/17 08:00 Intake and Output: 07/05/17 07/05/17 06:59 18:59 Intake Total 900 Output Total 700 Balance 200 - Medications Medications: Current Medications Acetaminophen (Tylenol 325mg Tab) 650 mg PO Q6 PRN PRN Reason: Headache Last Admin: 07/04/17 10:12 Dose: 650 mg Famotidine (Pepcid) 40 mg PO DAILY [facility] Last Admin: 07/05/17 08:59 Dose: 40 mg Folic Acid (Folic Acid) 1 mg PO DAILY [facility] Last Admin: 07/05/17 09:00 Dose: 1 mg Dextrose (Dextrose 5% In Water 1000 Ml) 600 mls @ 50 mls/hr IV .Q12H [facility] Stop: 07/05/17 23:44 Last Admin: 07/05/17 14:17 Dose: 50 mls/hr Multivitamins/Minerals (Therapeutic-M Tab) 1 tab PO DAILY [facility] Last Admin: 07/05/17 08:59 Dose: 1 tab Sodium Chloride (Sodium Chloride Tab) 1 gm PO Q8 [facility] Last Admin: 07/05/17 13:50 Dose: 1 gm Tamsulosin HCl (Flomax) 0.4 mg PO DAILY [facility] Last Admin: 07/05/17 08:59 Dose: 0.4 mg Thiamine HCl (Vitamin B1 Tab) 100 mg PO DAILY [facility] Last Admin: 07/05/17 08:59 Dose: 100 mg - Labs Labs: 07/01/17 06:20 07/05/17 09:30 PT 11.1 Seconds (9.8-13.1) 07/01/17 06:20 INR 1.1 (0.9-1.2) 07/01/17 06:20 APTT 34.8 Seconds (25.6-37.1) 07/01/17 06:20 - Head Exam Head Exam: ATRAUMATIC, NORMAL INSPECTION, NORMOCEPHALIC - Eye Exam Eye Exam: EOMI, Normal appearance Pupil Exam: NORMAL ACCOMODATION - ENT Exam ENT Exam: Mucous Membranes Moist, Normal Exam - Neck Exam Neck Exam: Normal Inspection - Respiratory Exam Respiratory Exam: NORMAL BREATHING PATTERN - Cardiovascular Exam Cardiovascular Exam: REGULAR RHYTHM - GI/Abdominal Exam GI & Abdominal Exam: Normal Bowel Sounds - Rectal Exam Rectal Exam: NORMAL INSPECTION - Exam External exam: NORMAL EXTERNAL EXAM - Extremities Exam Extremities Exam: Normal Inspection - Back Exam Back Exam: NORMAL INSPECTION - Neurological Exam Neurological Exam: Alert, Awake Neuro motor strength exam: Left Upper Extremity: 3, Right Upper Extremity: 3, Left Lower Extremity: 3, Right Lower Extremity: 3 - Psychiatric Exam Psychiatric exam: Normal Affect, Normal Mood - Skin Skin Exam: Dry Assessment and Plan (1) CVA (cerebral vascular accident) Assessment & Plan: plan for physical, occupational, rec therapy monitor skin and labs Status: Acute (2) Foot pain Status: Acute (3) Head injury Status: Acute (4) Head injury with skull fracture Status: Acute (5) Hyponatremia Status: Acute (6) Hyponatremia Status: Acute (7) Nasal bone fracture Status: Acute (8) Subdural hematoma Status: Acute
--- NOTE | 2017-07-05 17:39 | CON ---
DATE: LOCATION: Room 620, bed 1. REQUESTING PHYSICIAN: Dr. Bibiana Malone. REASON FOR CONSULTATION: Hyponatremia and SIADH. SUBJECTIVE: Mr. Knox is a 71-year-old elderly male with a history of EtOH abuse, hypertension, multiple falls and subdural hematoma, was recently admitted to [facility] on 06/26/2017 with altered mental status and unsteady gait. The patient was found to have serum sodium 110 subsequently his serum sodium improved with hypertonic saline 3% and tolvaptan until 135 and subsequently transferred to acute rehab. The patient is feeling better, not in acute distress. Denies any chest pain or palpitation. Denies any fever or cough today. The patient is out of bed to chair. PHYSICAL EXAMINATION: VITAL SIGNS: This morning as follows; blood pressure 125/59, pulse 84, respiration 20, temperature 97.8 and saturations 97%. Height 5 feet 8 inches and weight is 145 pounds. GENERAL: Mr. Knox is a 71-year-old elderly male, moderately built, moderately nourished, not in acute distress. HEENT: Pupils normal, reactive to light and accommodation. Conjunctivae pink. Sclerae anicteric. Tongue is moist. Trachea is midline. LUNGS: Symmetric on both side. Bilateral breath sounds present. Clear on auscultation. CARDIOVASCULAR: [place] at the fifth intercostal space, midclavicular line. S1 and S2 audible. No murmur or gallop. ABDOMEN: Normal in appearance, soft and tympanic. No guarding. No rigidity. No hepatosplenomegaly. CENTRAL NERVOUS SYSTEM: The patient is alert, awake and oriented x2-3. Sensory and motor system is within normal limits. EXTREMITIES: No cyanosis, no clubbing, no edema. MEDICATIONS: Current medications include as follows: Thiamine 100 mg daily, Flomax 0.4 mg daily, sodium chloride tablet 1 g p.o. q. 8 hours, multivitamins 1 tablet daily, folic acid 1 mg daily, Pepcid 40 mg daily, and Tylenol 650 mg p.o. q.6 hours p.r.n. LABORATORY DATA: Include as follows: As of 07/05/2017, sodium 132, potassium 4.1, chloride 95, CO2 of 32, BUN 34, creatinine 0.9, glucose 91, calcium 8.8. ASSESSMENT: In summary, Mr. Knox is a 71-year-old elderly male with a history of hypertension, EtOH abuse, questionable seizure disorder, subdural hematoma was admitted with hyponatremia and found to have syndrome of inappropriate antidiuretic hormone in [facility] treated with 3% hypertonic saline and tolvaptan and serum sodium increased 110 to 135 prior to the transfer to subacute rehab. The patient was started on IV fluids in the [facility], normal saline and subsequently serum sodium drop to 121 on 07/03/2017 and the patient was given tolvaptan and serum sodium improved to 133 yesterday and today the serum sodium is 132. 1. Hyponatremia, secondary to syndrome of inappropriate antidiuretic hormone secondary to most likely subd[facility] hemat[facility]. 2. Mild prerenal azotemia. 3. Status post fall and subdural hematoma. PLAN: 1. We will labelize fluid today and also we will give D5W 50 mL/hour 1 L and discontinue IV fluids afterwards and repeat BMP in a.m. and check PSA, CEA, CA-19-9, alpha fetoprotein. We will follow with you. Thank you for allowing me to participate in your patient's care. BMP in a.m. Kevin Mullins MD
--- NOTE | 2017-07-05 23:56 | CP.PCM.PN ---
Subjective - Date & Time of Evaluation Date of Evaluation: 07/05/17 Time of Evaluation: 16:05 Objective - Vital Signs/Intake and Output Vital Signs (last 24 hours): Temp Pulse Resp BP Pulse Ox 97.3 F L 78 20 120/61 97 07/05/17 20:38 07/05/17 20:38 07/05/17 20:38 07/05/17 20:38 07/05/17 20:38 Intake and Output: 07/05/17 07/06/17 18:59 06:59 Intake Total 1210 Balance 1210 - Medications Medications: Current Medications Acetaminophen (Tylenol 325mg Tab) 650 mg PO Q6 PRN PRN Reason: Headache Last Admin: 07/04/17 10:12 Dose: 650 mg Famotidine (Pepcid) 40 mg PO DAILY [facility] Last Admin: 07/05/17 08:59 Dose: 40 mg Folic Acid (Folic Acid) 1 mg PO DAILY [facility] Last Admin: 07/05/17 09:00 Dose: 1 mg Multivitamins/Minerals (Therapeutic-M Tab) 1 tab PO DAILY [facility] Last Admin: 07/05/17 08:59 Dose: 1 tab Sodium Chloride (Sodium Chloride Tab) 1 gm PO Q8 [facility] Last Admin: 07/05/17 21:25 Dose: 1 gm Tamsulosin HCl (Flomax) 0.4 mg PO DAILY [facility] Last Admin: 07/05/17 08:59 Dose: 0.4 mg Thiamine HCl (Vitamin B1 Tab) 100 mg PO DAILY [facility] Last Admin: 07/05/17 08:59 Dose: 100 mg - Labs Labs: 07/01/17 06:20 07/05/17 09:30 PT 11.1 Seconds (9.8-13.1) 07/01/17 06:20 INR 1.1 (0.9-1.2) 07/01/17 06:20 APTT 34.8 Seconds (25.6-37.1) 07/01/17 06:20
[2017-07-06 07:38] LABS: BLOOD UREA NITROGEN 30 mg/dl (9-20); CALCIUM 8.8 mg/dL (8.4-10.2); CARBON DIOXIDE 31 mmol/L (22-30); CHLORIDE 92 mmol/L (98-107); GFR AFRICAN-AMERICAN > 60; GLUCOSE,RANDOM 85 mg/dL (75-110); POTASSIUM 4.6 MMOL/L (3.6-5.0); SODIUM 130 mmol/l (132-148)
[2017-07-06 08:07] LABS: CARCINOEMBRYONIC ANTIGEN 1.5 ng/mL (0-3.0); PROSTATE SPECIFIC ANTIGEN 0.415 ng/ML (0.00-4.0)
[2017-07-06] MEDS: Multivitamin With Minerals Tab PO SCH (08:37)
[2017-07-06 17:28] LABS: CA 19-9 7.9 U/mL (0-37)
--- NOTE | 2017-07-07 01:15 | CP.PCM.PN ---
Subjective - Date & Time of Evaluation Date of Evaluation: 07/06/17 Time of Evaluation: 14:45 Objective - Vital Signs/Intake and Output Vital Signs (last 24 hours): Temp Pulse Resp BP Pulse Ox 97.0 F L 64 20 138/70 99 07/06/17 20:04 07/06/17 20:04 07/06/17 20:04 07/06/17 20:04 07/06/17 20:04 - Medications Medications: Current Medications Acetaminophen (Tylenol 325mg Tab) 650 mg PO Q6 PRN PRN Reason: Headache Last Admin: 07/06/17 13:20 Dose: 650 mg Famotidine (Pepcid) 40 mg PO DAILY [facility] Last Admin: 07/06/17 08:37 Dose: 40 mg Folic Acid (Folic Acid) 1 mg PO DAILY [facility] Last Admin: 07/06/17 08:37 Dose: 1 mg Multivitamins/Minerals (Therapeutic-M Tab) 1 tab PO DAILY [facility] Last Admin: 07/06/17 08:37 Dose: 1 tab Sodium Chloride (Sodium Chloride Tab) 1 gm PO Q8 [facility] Last Admin: 07/06/17 21:52 Dose: 1 gm Tamsulosin HCl (Flomax) 0.4 mg PO DAILY [facility] Last Admin: 07/06/17 08:37 Dose: 0.4 mg Thiamine HCl (Vitamin B1 Tab) 100 mg PO DAILY [facility] Last Admin: 07/06/17 08:37 Dose: 100 mg - Labs Labs: 07/01/17 06:20 07/06/17 06:00 PT 11.1 Seconds (9.8-13.1) 07/01/17 06:20 INR 1.1 (0.9-1.2) 07/01/17 06:20 APTT 34.8 Seconds (25.6-37.1) 07/01/17 06:20
[2017-07-07] MEDS: Multivitamin With Minerals Tab PO SCH (08:15)
--- NOTE | 2017-07-07 16:18 | CP.PCM.PN ---
Subjective - Date & Time of Evaluation Date of Evaluation: 07/07/17 Time of Evaluation: 15:15 Objective - Vital Signs/Intake and Output Vital Signs (last 24 hours): Temp Pulse Resp BP Pulse Ox 98.2 F 78 20 151/73 H 100 07/07/17 09:10 07/07/17 09:10 07/07/17 09:10 07/07/17 09:10 07/07/17 09:10 - Medications Medications: Current Medications Acetaminophen (Tylenol 325mg Tab) 650 mg PO Q6 PRN PRN Reason: Headache Last Admin: 07/06/17 13:20 Dose: 650 mg Famotidine (Pepcid) 40 mg PO DAILY [facility] Last Admin: 07/07/17 08:15 Dose: 40 mg Folic Acid (Folic Acid) 1 mg PO DAILY [facility] Last Admin: 07/07/17 08:15 Dose: 1 mg Multivitamins/Minerals (Therapeutic-M Tab) 1 tab PO DAILY [facility] Last Admin: 07/07/17 08:15 Dose: 1 tab Sodium Chloride (Sodium Chloride Tab) 1 gm PO Q8 [facility] Last Admin: 07/07/17 13:36 Dose: 1 gm Tamsulosin HCl (Flomax) 0.4 mg PO DAILY [facility] Last Admin: 07/07/17 08:14 Dose: 0.4 mg Thiamine HCl (Vitamin B1 Tab) 100 mg PO DAILY [facility] Last Admin: 07/07/17 08:15 Dose: 100 mg - Labs Labs: 07/01/17 06:20 07/06/17 06:00 PT 11.1 Seconds (9.8-13.1) 07/01/17 06:20 INR 1.1 (0.9-1.2) 07/01/17 06:20 APTT 34.8 Seconds (25.6-37.1) 07/01/17 06:20
[2017-07-08] MEDS: Multivitamin With Minerals Tab PO SCH (08:51)
--- NOTE | 2017-07-08 12:13 | PSY.TMCNF ---
Nursing - Vital Signs Vital Signs (Last 8 hours): Vital Signs 07/08/17 07/08/17 09:00 10:00 Temperature 97 F L 97 F L Pulse Rate 84 84 Respiratory 20 20 Rate Blood Pressure 140/73 140/73 O2 Sat by Pulse 99 Oximetry Pain: 0 - Precautions: Precautions: Fall Prevention, Seizure - Medications/Other Issues Comment: Pt at moderate nutritional risk. goals:1. Consume 75-100% at mealtimes. Follow-up due on 07/08/2017 - Consults Comment: Dr. Rodriguez, Dr. Mullins, -[facility], [place], [facility] - Skin Incision Line Treatment: with small dried blood to left parietal - Toileting Toileting: Moderate Assistance - Bladder Management Bladder Pattern: Normal Voiding Method: Urinal Bladder Management: Supervision Frequency of Accidents: 0 - Bowel Management Bowel Pattern: Normal Bowel Management: Supervision Frequency of Accidents: 0 - Transfers Transfers: Minimal Assistance - ADL's ADL's: Maximal Assistance - Pain Management Comments: denies - Patient/Family Teaching Comments: CARE POST CVA AND SAFETY PRECAUTIONS - Goals/Time Frame Comments: PER MULTIDISCIPLINARY CARE PLAN GOALS - Provider Provider: KIM PABLON RN CRRN Physical Therapy - Bed Mobility Bed Mobility: Supervision - Transfers Wheelchair to Mat: Supervision, Verbal Cues, Contact Guard Sit to Stand: Supervision, Verbal Cues - Ambulation Level of Assistance: Verbal Cues, Contact Guard Distance (ft.): 200 Assistive Devices: N/A, Single point cane - Stair Negotiation Stairs: Level of Assistance: Supervision, Verbal Cues Number of Stairs: 11 Handrails: Right Stairs: Assistive Devices: Right Handrail - Standing Balance Static Stand: Supervision Dynamic Stand: Contact Guard Assist, Minimal Assistance - Pain Management Techniques: Medication Comment: occasional complaints of headache - Insight/Carryover Insight/Carryover: Fair - Patient/Family Education Comment: Pt education for increased safety awareness and proper techniques during functional mobility training. - Assessment/Plan Assessment: Ramu Knox presents with a moderate cognitive-linguistic disorder characterized by inconsistently impaired temporal orientation, impaired problem solving and reasoning with impaired insight and safety awareness, impaired immediate and short-term recall, impaired sequencing, and impaired thought organization with tangential speech. Pt would benefit from continued speech tx 3-5x/week for improved cognition. - Goals Timeframe: 2 weeks Goals: Sit < > supine independent. Sit < > stand mod I. Pt will ambulate 300 ft with supervision without device. Pt will ascend/descend 3 flights of stairs with handrails and supervision - Provider License Number: [id number] Occupational Therapy - Arousal/Attention/Orientation Patient Orientation: Person, Place, Time, Appropriate to Age, Appropriate to Situation - ADL/IADL Self Feeding: Independent Grooming: Supervision, Verbal Cues, Set-up Help Bathing-Upper Extremity: Supervision, Verbal Cues, Set-up Help Bathing-Lower Extremity: Verbal Cues, Set-up Help, Minimal Assistance Dressing-Upper Extremity: Supervision, Verbal Cues, Set-up Help Dressing-Lower Extremity: Supervision, Verbal Cues, Set-up Help - Sitting Balance Static Sitting: Independent with upper extremity support Dynamic Sitting: Requires supervision - Transfers Wheelchair to Bed Transfers: Supervision, Verbal Cues, Set-up Help Toilet Transfers: Supervision, Verbal Cues, Contact Guard - Upper Extremity Status Right Upper Extremity Comment: impaired shoulder flexion weakness, ROM WFL Left Upper Extremity Comment: impaired dexterity and shoulder flexion weakness, ROM WFL - Pain Alleviating Techniques: Medication Comment: occasional complaints of headache - Insight/Carryover Insight/Carryover: Fair - Patient/Family Education Comment: Pt education for increased safety awareness and proper techniques during functional mobility training. - Assessment/Plan Assessment: Ramu Knox presents with a moderate cognitive-linguistic disorder characterized by inconsistently impaired temporal orientation, impaired problem solving and reasoning with impaired insight and safety awareness, impaired immediate and short-term recall, impaired sequencing, and impaired thought organization with tangential speech. Pt would benefit from continued speech tx 3-5x/week for improved cognition. - Goals Timeframe: 2 weeks Goals: Sit < > supine independent. Sit < > stand mod I. Pt will ambulate 300 ft with supervision without device. Pt will ascend/descend 3 flights of stairs with handrails and supervision - Provider Therapist: Janie Finch Speech Therapy - Consult Information Patient on Program: Yes Medical Diagnosis: subdural hematoma Treatment Diagnosis: cognitive-linguistic deficits - Assessment Problem Solving Impairment: Moderate Memory Impairment: Moderate - Plan Assessment: Ramu Knox presents with a moderate cognitive-linguistic disorder characterized by inconsistently impaired temporal orientation, impaired problem solving and reasoning with impaired insight and safety awareness, impaired immediate and short-term recall, impaired sequencing, and impaired thought organization with tangential speech. Pt would benefit from continued speech tx 3-5x/week for improved cognition. Plan: Continue Speech/Language Therapy Frequency: 3-5 times per week Duration: 1 week - Provider Therapist: Kristal Marley License Number: [id number] Recreational Therapy - Participation Participation: Participates in Individual and/or Group Sessions - Attendance Attendance: 3-5 times per week - Activities Leisure Activities: Cards and Games - Socialization Level of Socialization: Initiates/interacts freely with care givers and peer - Diversional Time Diversional Time: television - Assessment Assessment/Plan: Ramu Knox presents with a moderate cognitive-linguistic disorder characterized by inconsistently impaired temporal orientation, impaired problem solving and reasoning with impaired insight and safety awareness, impaired immediate and short-term recall, impaired sequencing, and impaired thought organization with tangential speech. Pt would benefit from continued speech tx 3-5x/week for improved cognition. - Provider Therapist: La Mccarty, [facility]URSE #[id number] Nutrition - Current Diet Current Diet/ Supplement/ Feedings: low fat/low cholesterol 1000 ml fluid restriction nepro 8 ounces 2 per day - Appetite Percent Meal Consumed: 75-100% - Comments Comments: CARE POST CVA AND SAFETY PRECAUTIONS - Assessment/Goals/Time Frame Assessment/Goals/Time Frame: Pt at moderate nutritional risk. goals:1. Consume 75-100% at mealtimes. Follow-up due on 07/08/2017 - Provider Provider: Mirian Jones RD Case Management - Psychosocial Assessment Support Systems: Patient lives with sister in law Teresa who is very supportive and involved in care- [phone], Psychological Interventions/Needs: Patient is alert with intermittent confusion. Discharge Concerns: Patient CG for bed mobility and transfers and min-mod A for ambulation. Patient/Family Meeting: CM met with patient and rehab team. - Discharge Plan Discharge Plan: Home with significant other/family Rehabilitation Plan - Treatment Plan Treatment Plan: Physical Therapy, Occupational Therapy, Speech, Dietary, Patient /Family Education - Recommendation Recommendation: Physical Therapy, Occupational Therapy, Speech, Dietary, Patient /Family Education - Discharge Plan Discharge to: Home (07/13)
--- NOTE | 2017-07-08 16:03 | CP.PCM.CON ---
History of Present Illness - History of Present Illness History of Present Illness: Mr. Knox is a 71-year-old man with a past medical history of epilepsy and recent fall resulting in subdural. He is currently admitted for acute rehab and it was noted that he has not been on his AEDs. He has been off of dilantin and Keppra for the last 10 days. Neurology was consulted to assist with the management and care. Review of Systems - Review of Systems All systems: reviewed and no additional remarkable complaints except Past Patient History - Infectious Disease Hx of Infectious Diseases: None - Past Medical History & Family History Past Medical History?: Yes - Past Social History Smoking Status: Former Smoker - CARDIAC Hx Hypertension: Yes - PULMONARY Hx Respiratory Disorders: No - NEUROLOGICAL Hx Seizures: Yes Other/Comment: h/o meningitis, subdural hematoma - HEENT Hx HEENT Problems: Yes Hx Cataracts: Yes Other/Comment: glasses for reading - RENAL Hx Chronic Kidney Disease: No - ENDOCRINE/METABOLIC Hx Endocrine Disorders: No - HEMATOLOGICAL/ONCOLOGICAL Hx AIDS: No Hx Human Immunodeficiency Virus (HIV): No - INTEGUMENTARY Hx Dermatological Problems: No - MUSCULOSKELETAL/RHEUMATOLOGICAL Hx Arthritis: Yes Hx Falls: Yes (fell on the street and collapsed 06/19/2017) - GASTROINTESTINAL Hx Gastrointestinal Disorders: No - GENITOURINARY/GYNECOLOGICAL Hx Genitourinary Disorders: No - PSYCHIATRIC Hx Substance Use: No - SURGICAL HISTORY Hx Surgeries: Yes Hx Orthopedic Surgery: Yes (LEFT SHOULDER) - ANESTHESIA Hx Anesthesia: Yes Hx Anesthesia Reactions: No Hx Malignant Hyperthermia: No Meds Allergies/Adverse Reactions: Allergies Allergy/AdvReac Type Severity Reaction Status Date / Time No Known Allergies Allergy Verified 06/30/17 20:02 - Medications Medications: Current Medications Acetaminophen (Tylenol 325mg Tab) 650 mg PO Q6 PRN PRN Reason: Headache Last Admin: 07/06/17 13:20 Dose: 650 mg Famotidine (Pepcid) 40 mg PO DAILY [facility] Last Admin: 07/08/17 08:52 Dose: 40 mg Folic Acid (Folic Acid) 1 mg PO DAILY [facility] Last Admin: 07/08/17 08:52 Dose: 1 mg Sodium Chloride (Sodium Chloride 0.9%) 1,000 mls @ 100 mls/hr IV .Q10H [facility] Stop: 07/10/17 07:00 Levetiracetam (Keppra) 500 mg PO Q12@0000,1200 [facility] Last Admin: 07/08/17 13:36 Dose: Not Given Multivitamins/Minerals (Therapeutic-M Tab) 1 tab PO DAILY [facility] Last Admin: 07/08/17 08:51 Dose: 1 tab Sodium Chloride (Sodium Chloride Tab) 1 gm PO Q8 [facility] Last Admin: 07/08/17 13:07 Dose: 1 gm Tamsulosin HCl (Flomax) 0.4 mg PO DAILY [facility] Last Admin: 07/08/17 08:51 Dose: 0.4 mg Thiamine HCl (Vitamin B1 Tab) 100 mg PO DAILY [facility] Last Admin: 07/08/17 08:52 Dose: 100 mg Physical Exam - Constitutional Appears: Well - Head Exam Head Exam: ATRAUMATIC, NORMAL INSPECTION, NORMOCEPHALIC - Eye Exam Eye Exam: EOMI, Normal appearance, PERRL - ENT Exam ENT Exam: Mucous Membranes Moist, Normal Exam - Neck Exam Neck exam: Positive for: Normal Inspection - Respiratory Exam Respiratory Exam: Clear to Auscultation Bilateral, NORMAL BREATHING PATTERN - Cardiovascular Exam Cardiovascular Exam: REGULAR RHYTHM, +S1, +S2 - GI/Abdominal Exam GI & Abdominal Exam: Normal Bowel Sounds, Soft. absent: Tenderness - Rectal Exam Rectal Exam: Deferred - Extremities Exam Extremities exam: Positive for: normal inspection - Back Exam Back exam: NORMAL INSPECTION - Neurological Exam Neurological exam: Abnormal Gait, CN II-XII Intact, Oriented x3 - Expanded Neurological Exam Expanded Patient oriented to: person, place, time Cranial nerves: EOM's Intact: Normal, Facial Sensation: Normal, Tongue Deviation : Normal Ataxia: No Cerebellar Function: Finger to Nose: Normal, Heel to White: Normal Upper motor neuron: Babinski Sign: Normal Sensory exam: Lower Extremity Light Touch: Normal, Lower Extremity Pin Prick: Normal, Upper Extremity 2 Point Discrimination: Normal, Upper Extremity Light Touch: Normal Neuro motor strength exam: Left Upper Extremity: 4, Right Upper Extremity: 5, Left Lower Extremity: 4, Right Lower Extremity: 5 DTR: Bicep Left: 3+, Bicep Right: 2+, Brachioradialis Left: 3+, Brachioradialis Right: 2+, Patellar Left: 3+, Patellar Right: 2+ - Psychiatric Exam Psychiatric exam: Normal Affect, Normal Mood - Skin Skin Exam: Dry, Intact, Normal Color, Warm Results - Vital Signs Recent Vital Signs: Last Vital Signs Temp 97 F L 07/08/17 10:00 Pulse 84 07/08/17 10:00 Resp 20 07/08/17 10:00 BP 140/73 07/08/17 10:00 Pulse Ox 99 07/08/17 10:00 - Labs Result Diagrams: 07/01/17 06:20 07/06/17 06:00 Assessment & Plan (1) Epilepsy Assessment and Plan: No recent seizures since being off of AED. Resume Keppra at 500 mg BID and titrate up as needed. Continue PT/OT per primary team. Status: Chronic Priority: Medium
[2017-07-08] MEDS: Sodium Chloride 0.9% 1,000 ML IV SCH (16:54)
--- NOTE | 2017-07-08 19:34 | CP.PCM.PN ---
Subjective - Date & Time of Evaluation Date of Evaluation: 07/08/17 Time of Evaluation: 11:00 - Subjective Subjective: patient with no neck or back pain, alert Objective - Vital Signs/Intake and Output Vital Signs (last 24 hours): Temp Pulse Resp BP Pulse Ox 97 F L 84 20 140/73 99 07/08/17 10:00 07/08/17 10:00 07/08/17 10:00 07/08/17 10:00 07/08/17 10:00 - Medications Medications: Current Medications Acetaminophen (Tylenol 325mg Tab) 650 mg PO Q6 PRN PRN Reason: Headache Last Admin: 07/08/17 16:52 Dose: 650 mg Famotidine (Pepcid) 40 mg PO DAILY [facility] Last Admin: 07/08/17 08:52 Dose: 40 mg Folic Acid (Folic Acid) 1 mg PO DAILY [facility] Last Admin: 07/08/17 08:52 Dose: 1 mg Sodium Chloride (Sodium Chloride 0.9%) 1,000 mls @ 100 mls/hr IV .Q10H [facility] Stop: 07/10/17 07:00 Last Admin: 07/08/17 16:54 Dose: 100 mls/hr Levetiracetam (Keppra) 500 mg PO Q12@0000,1200 [facility] Last Admin: 07/08/17 13:36 Dose: Not Given Multivitamins/Minerals (Therapeutic-M Tab) 1 tab PO DAILY [facility] Last Admin: 07/08/17 08:51 Dose: 1 tab Sodium Chloride (Sodium Chloride Tab) 1 gm PO Q8 [facility] Last Admin: 07/08/17 13:07 Dose: 1 gm Tamsulosin HCl (Flomax) 0.4 mg PO DAILY [facility] Last Admin: 07/08/17 08:51 Dose: 0.4 mg Thiamine HCl (Vitamin B1 Tab) 100 mg PO DAILY [facility] Last Admin: 07/08/17 08:52 Dose: 100 mg - Labs Labs: 07/01/17 06:20 07/06/17 06:00 PT 11.1 Seconds (9.8-13.1) 07/01/17 06:20 INR 1.1 (0.9-1.2) 07/01/17 06:20 APTT 34.8 Seconds (25.6-37.1) 07/01/17 06:20 - Head Exam Head Exam: ATRAUMATIC, NORMAL INSPECTION, NORMOCEPHALIC - Eye Exam Eye Exam: EOMI, Normal appearance Pupil Exam: NORMAL ACCOMODATION, PERRL - ENT Exam ENT Exam: Mucous Membranes Moist, Normal Exam - Neck Exam Neck Exam: Normal Inspection - Respiratory Exam Respiratory Exam: NORMAL BREATHING PATTERN - Cardiovascular Exam Cardiovascular Exam: REGULAR RHYTHM - GI/Abdominal Exam GI & Abdominal Exam: Normal Bowel Sounds - Rectal Exam Rectal Exam: NORMAL INSPECTION - Exam External exam: NORMAL EXTERNAL EXAM - Extremities Exam Extremities Exam: Normal Capillary Refill, Normal Inspection - Back Exam Back Exam: NORMAL INSPECTION - Neurological Exam Neurological Exam: Alert, Awake Neuro motor strength exam: Left Upper Extremity: 3, Right Upper Extremity: 3, Left Lower Extremity: 3, Right Lower Extremity: 3 - Psychiatric Exam Psychiatric exam: Normal Affect - Skin Skin Exam: Dry, Normal Color Assessment and Plan (1) CVA (cerebral vascular accident) Assessment & Plan: plan for physical, occupational, rec therapy status post team conference discussed dc planning Status: Acute (2) Foot pain Status: Acute (3) Head injury Status: Acute (4) Head injury with skull fracture Status: Acute (5) Hyponatremia Status: Acute (6) Hyponatremia Status: Acute (7) Nasal bone fracture Status: Acute (8) Subdural hematoma Status: Acute
--- NOTE | 2017-07-08 19:54 | CP.PCM.PN ---
Subjective - Date & Time of Evaluation Date of Evaluation: 07/07/17 Time of Evaluation: 15:30 - Subjective Subjective: no acute complaints at present Objective - Vital Signs/Intake and Output Vital Signs (last 24 hours): Temp Pulse Resp BP Pulse Ox 97 F L 84 20 140/73 99 07/08/17 10:00 07/08/17 10:00 07/08/17 10:00 07/08/17 10:00 07/08/17 10:00 - Medications Medications: Current Medications Acetaminophen (Tylenol 325mg Tab) 650 mg PO Q6 PRN PRN Reason: Headache Last Admin: 07/08/17 16:52 Dose: 650 mg Famotidine (Pepcid) 40 mg PO DAILY [facility] Last Admin: 07/08/17 08:52 Dose: 40 mg Folic Acid (Folic Acid) 1 mg PO DAILY [facility] Last Admin: 07/08/17 08:52 Dose: 1 mg Sodium Chloride (Sodium Chloride 0.9%) 1,000 mls @ 100 mls/hr IV .Q10H [facility] Stop: 07/10/17 07:00 Last Admin: 07/08/17 16:54 Dose: 100 mls/hr Levetiracetam (Keppra) 500 mg PO Q12@0000,1200 [facility] Last Admin: 07/08/17 13:36 Dose: Not Given Multivitamins/Minerals (Therapeutic-M Tab) 1 tab PO DAILY [facility] Last Admin: 07/08/17 08:51 Dose: 1 tab Sodium Chloride (Sodium Chloride Tab) 1 gm PO Q8 [facility] Last Admin: 07/08/17 13:07 Dose: 1 gm Tamsulosin HCl (Flomax) 0.4 mg PO DAILY [facility] Last Admin: 07/08/17 08:51 Dose: 0.4 mg Thiamine HCl (Vitamin B1 Tab) 100 mg PO DAILY [facility] Last Admin: 07/08/17 08:52 Dose: 100 mg - Labs Labs: 07/01/17 06:20 07/06/17 06:00 PT 11.1 Seconds (9.8-13.1) 07/01/17 06:20 INR 1.1 (0.9-1.2) 07/01/17 06:20 APTT 34.8 Seconds (25.6-37.1) 07/01/17 06:20 - Head Exam Head Exam: ATRAUMATIC, NORMAL INSPECTION, NORMOCEPHALIC - Eye Exam Eye Exam: EOMI, Normal appearance Pupil Exam: NORMAL ACCOMODATION, PERRL - ENT Exam ENT Exam: Mucous Membranes Moist, Normal Exam - Neck Exam Neck Exam: Normal Inspection - Respiratory Exam Respiratory Exam: Clear to Ausculation Bilateral, NORMAL BREATHING PATTERN - Cardiovascular Exam Cardiovascular Exam: REGULAR RHYTHM - GI/Abdominal Exam GI & Abdominal Exam: Normal Bowel Sounds - Rectal Exam Rectal Exam: NORMAL INSPECTION - Exam External exam: NORMAL EXTERNAL EXAM - Extremities Exam Extremities Exam: Normal Capillary Refill, Normal Inspection - Back Exam Back Exam: NORMAL INSPECTION - Neurological Exam Neurological Exam: Alert, Awake Neuro motor strength exam: Left Upper Extremity: 3, Right Upper Extremity: 3, Left Lower Extremity: 3, Right Lower Extremity: 3 - Psychiatric Exam Psychiatric exam: Normal Affect, Normal Mood - Skin Skin Exam: Normal Color Assessment and Plan (1) CVA (cerebral vascular accident) Assessment & Plan: plan physical, occupational, rec therapy follow up with skin, bowel, bladder care Status: Acute (2) Foot pain Status: Acute (3) Head injury Status: Acute (4) Head injury with skull fracture Status: Acute (5) Hyponatremia Status: Acute (6) Hyponatremia Status: Acute (7) Nasal bone fracture Status: Acute (8) Subdural hematoma Status: Acute
[2017-07-09] MEDS: Sodium Chloride 0.9% 1,000 ML IV SCH ×2 (02:07→13:00)
[2017-07-09] MEDS: Multivitamin With Minerals Tab PO SCH (08:21)
--- NOTE | 2017-07-09 23:47 | CP.PCM.PN ---
Subjective - Date & Time of Evaluation Date of Evaluation: 07/09/17 Time of Evaluation: 15:40 Objective - Vital Signs/Intake and Output Vital Signs (last 24 hours): Temp Pulse Resp BP Pulse Ox 97.7 F 74 20 131/74 97 07/09/17 20:11 07/09/17 20:11 07/09/17 20:11 07/09/17 20:11 07/09/17 20:11 Intake and Output: 07/09/17 07/10/17 18:59 06:59 Intake Total 1820 Output Total 800 Balance 1020 - Medications Medications: Current Medications Acetaminophen (Tylenol 325mg Tab) 650 mg PO Q6 PRN PRN Reason: Headache Last Admin: 07/09/17 08:20 Dose: 650 mg Famotidine (Pepcid) 40 mg PO DAILY [facility] Last Admin: 07/09/17 08:21 Dose: 40 mg Folic Acid (Folic Acid) 1 mg PO DAILY [facility] Last Admin: 07/09/17 08:21 Dose: 1 mg Levetiracetam (Keppra) 500 mg PO Q12@0000,1200 [facility] Last Admin: 07/09/17 13:00 Dose: 500 mg Multivitamins/Minerals (Therapeutic-M Tab) 1 tab PO DAILY [facility] Last Admin: 07/09/17 08:21 Dose: 1 tab Sodium Chloride (Sodium Chloride Tab) 1 gm PO Q8 [facility] Last Admin: 07/09/17 21:56 Dose: 1 gm Tamsulosin HCl (Flomax) 0.4 mg PO DAILY [facility] Last Admin: 07/09/17 08:21 Dose: 0.4 mg Thiamine HCl (Vitamin B1 Tab) 100 mg PO DAILY [facility] Last Admin: 07/09/17 08:21 Dose: 100 mg - Labs Labs: 07/01/17 06:20 07/06/17 06:00 PT 11.1 Seconds (9.8-13.1) 07/01/17 06:20 INR 1.1 (0.9-1.2) 07/01/17 06:20 APTT 34.8 Seconds (25.6-37.1) 07/01/17 06:20
[2017-07-10] MEDS: Multivitamin With Minerals Tab PO SCH (08:27)
--- NOTE | 2017-07-10 10:41 | CP.PCM.PN ---
Subjective - Date & Time of Evaluation Date of Evaluation: 07/10/17 Time of Evaluation: 20:35 Objective - Vital Signs/Intake and Output Vital Signs (last 24 hours): Temp Pulse Resp BP Pulse Ox 97.7 F 74 20 131/74 97 07/09/17 20:11 07/09/17 20:11 07/09/17 20:11 07/09/17 20:11 07/09/17 20:11 - Medications Medications: Current Medications Acetaminophen (Tylenol 325mg Tab) 650 mg PO Q6 PRN PRN Reason: Headache Last Admin: 07/09/17 08:20 Dose: 650 mg Famotidine (Pepcid) 40 mg PO DAILY [facility] Last Admin: 07/10/17 08:27 Dose: 40 mg Folic Acid (Folic Acid) 1 mg PO DAILY [facility] Last Admin: 07/10/17 08:27 Dose: 1 mg Levetiracetam (Keppra) 500 mg PO Q12@0000,1200 [facility] Last Admin: 07/10/17 00:00 Dose: 500 mg Multivitamins/Minerals (Therapeutic-M Tab) 1 tab PO DAILY [facility] Last Admin: 07/10/17 08:27 Dose: 1 tab Sodium Chloride (Sodium Chloride Tab) 1 gm PO Q8 [facility] Last Admin: 07/10/17 06:19 Dose: 1 gm Tamsulosin HCl (Flomax) 0.4 mg PO DAILY [facility] Last Admin: 07/10/17 08:27 Dose: 0.4 mg Thiamine HCl (Vitamin B1 Tab) 100 mg PO DAILY [facility] Last Admin: 07/10/17 08:27 Dose: 100 mg - Labs Labs: 07/01/17 06:20 07/06/17 06:00 PT 11.1 Seconds (9.8-13.1) 07/01/17 06:20 INR 1.1 (0.9-1.2) 07/01/17 06:20 APTT 34.8 Seconds (25.6-37.1) 07/01/17 06:20
[2017-07-10 11:11] LABS: BLOOD UREA NITROGEN 24 mg/dl (9-20); CALCIUM 8.6 mg/dL (8.4-10.2); CARBON DIOXIDE 30 mmol/L (22-30); CHLORIDE 88 mmol/L (98-107); GFR AFRICAN-AMERICAN > 60; GLUCOSE,RANDOM 97 mg/dL (75-110); SODIUM 125 mmol/l (132-148)
[2017-07-10] MEDS ORDERED: Sodium Chloride 3% 500 ML IV SCH ×2 (12:48→13:39)
[2017-07-10] MEDS ORDERED: Tolvaptan 15 MG TAB PO ONE (14:57)
[2017-07-10] MEDS: Sodium Chloride 0.45% 1,000 ML IV SCH (16:37)
--- NOTE | 2017-07-10 20:40 | CP.PCM.PN ---
Subjective - Date & Time of Evaluation Date of Evaluation: 07/10/17 Time of Evaluation: 13:00 - Subjective Subjective: patient with no acute complaints at present Objective - Vital Signs/Intake and Output Vital Signs (last 24 hours): Temp Pulse Resp BP Pulse Ox 97.5 F L 74 20 123/65 97 07/10/17 20:07 07/10/17 20:07 07/10/17 20:07 07/10/17 20:07 07/10/17 20:07 - Medications Medications: Current Medications Acetaminophen (Tylenol 325mg Tab) 650 mg PO Q6 PRN PRN Reason: Headache Last Admin: 07/09/17 08:20 Dose: 650 mg Famotidine (Pepcid) 40 mg PO DAILY [facility] Last Admin: 07/10/17 08:27 Dose: 40 mg Folic Acid (Folic Acid) 1 mg PO DAILY [facility] Last Admin: 07/10/17 08:27 Dose: 1 mg Sodium Chloride (Sodium Chloride 0.45%) 1,000 mls @ 45 mls/hr IV .[id number] [facility] Stop: 07/11/17 15:01 Last Admin: 07/10/17 16:37 Dose: 45 mls/hr Multivitamins/Minerals (Therapeutic-M Tab) 1 tab PO DAILY [facility] Last Admin: 07/10/17 08:27 Dose: 1 tab Sodium Chloride (Sodium Chloride Tab) 1 gm PO Q8 [facility] Last Admin: 07/10/17 13:17 Dose: 1 gm Tamsulosin HCl (Flomax) 0.4 mg PO DAILY [facility] Last Admin: 07/10/17 08:27 Dose: 0.4 mg Thiamine HCl (Vitamin B1 Tab) 100 mg PO DAILY [facility] Last Admin: 07/10/17 08:27 Dose: 100 mg - Labs Labs: 07/01/17 06:20 07/10/17 10:58 PT 11.1 Seconds (9.8-13.1) 07/01/17 06:20 INR 1.1 (0.9-1.2) 07/01/17 06:20 APTT 34.8 Seconds (25.6-37.1) 07/01/17 06:20 - Head Exam Head Exam: ATRAUMATIC, NORMAL INSPECTION, NORMOCEPHALIC - Eye Exam Eye Exam: EOMI, Normal appearance Pupil Exam: NORMAL ACCOMODATION, PERRL - ENT Exam ENT Exam: Mucous Membranes Moist - Respiratory Exam Respiratory Exam: Clear to Ausculation Bilateral - Cardiovascular Exam Cardiovascular Exam: REGULAR RHYTHM - GI/Abdominal Exam GI & Abdominal Exam: Normal Bowel Sounds - Rectal Exam Rectal Exam: NORMAL INSPECTION - Exam External exam: NORMAL EXTERNAL EXAM - Extremities Exam Extremities Exam: Normal Capillary Refill, Normal Inspection - Back Exam Back Exam: NORMAL INSPECTION - Neurological Exam Neurological Exam: Alert, Awake Neuro motor strength exam: Left Upper Extremity: 3, Right Upper Extremity: 3, Left Lower Extremity: 3, Right Lower Extremity: 3 - Psychiatric Exam Psychiatric exam: Normal Affect - Skin Skin Exam: Normal Color Assessment and Plan (1) CVA (cerebral vascular accident) Assessment & Plan: plan to continue with Pt, Ot and rec therapy Status: Acute (2) Foot pain Status: Acute (3) Head injury Assessment & Plan: meds for seizures as per PMD and neurologist Status: Acute (4) Head injury with skull fracture Status: Acute (5) Hyponatremia Status: Acute (6) Hyponatremia Assessment & Plan: as per transit mixer operator for fluids Status: Acute (7) Nasal bone fracture Status: Acute (8) Subdural hematoma Status: Acute
[2017-07-11 08:45] LABS: ALB/GLOB RATIO 1.5 (1.0-2.1); ALKALINE PHOSPHATASE 83 U/L (38-126); ALT/SGPT 34 U/L (21-72); AST/SGOT 21 U/L (17-59); BILIRUBIN,TOTAL 0.3 mg/dl (0.2-1.3); BLOOD UREA NITROGEN 26 mg/dl (9-20); CALCIUM 9.1 mg/dL (8.4-10.2); CARBON DIOXIDE 31 mmol/L (22-30); CHLORIDE 98 mmol/L (98-107); GFR AFRICAN-AMERICAN > 60; GLUCOSE,RANDOM 80 mg/dL (75-110); POTASSIUM 4.2 MMOL/L (3.6-5.0); SODIUM 136 mmol/l (132-148); TOTAL PROTEIN 5.8 G/DL (6.3-8.2)
[2017-07-11] MEDS: Multivitamin With Minerals Tab PO SCH (10:00)
--- NOTE | 2017-07-11 12:35 | CP.PCM.PN ---
Subjective - Date & Time of Evaluation Date of Evaluation: 07/11/17 Time of Evaluation: 12:32 - Subjective Subjective: Mr. Knox was seen and examined today at bedside. He was found in NAD and had no complaints. I discussed his case with Dr. Oro, neurologists who saw him initially. Received the history that his seizures were likely alcohol withdrawal related and that he does not need to be on AEDs, which is why he was taken off. Objective - Vital Signs/Intake and Output Vital Signs (last 24 hours): Temp Pulse Resp BP Pulse Ox 97.5 F L 70 18 142/82 100 07/11/17 07:49 07/11/17 07:49 07/11/17 07:49 07/11/17 07:49 07/11/17 07:49 - Medications Medications: Current Medications Acetaminophen (Tylenol 325mg Tab) 650 mg PO Q6 PRN PRN Reason: Headache Last Admin: 07/09/17 08:20 Dose: 650 mg Famotidine (Pepcid) 40 mg PO DAILY [facility] Last Admin: 07/11/17 08:22 Dose: 40 mg Folic Acid (Folic Acid) 1 mg PO DAILY [facility] Last Admin: 07/11/17 08:22 Dose: 1 mg Sodium Chloride (Sodium Chloride 0.45%) 1,000 mls @ 45 mls/hr IV .[id number] [facility] Stop: 07/11/17 15:01 Last Admin: 07/10/17 16:37 Dose: 45 mls/hr Multivitamins/Minerals (Therapeutic-M Tab) 1 tab PO DAILY [facility] Last Admin: 07/11/17 10:00 Dose: 1 tab Sodium Chloride (Sodium Chloride Tab) 1 gm PO Q8 [facility] Last Admin: 07/11/17 05:37 Dose: 1 gm Tamsulosin HCl (Flomax) 0.4 mg PO DAILY [facility] Last Admin: 07/11/17 08:22 Dose: 0.4 mg Thiamine HCl (Vitamin B1 Tab) 100 mg PO DAILY [facility] Last Admin: 07/11/17 08:22 Dose: 100 mg - Labs Labs: 07/01/17 06:20 07/11/17 06:30 PT 11.1 Seconds (9.8-13.1) 07/01/17 06:20 INR 1.1 (0.9-1.2) 07/01/17 06:20 APTT 34.8 Seconds (25.6-37.1) 07/01/17 06:20 - Neurological Exam Neurological Exam: Abnormal Gait, Awake, CN II-XII Intact, Oriented x3, Reflexes Normal Neuro motor strength exam: Left Upper Extremity: 4, Right Upper Extremity: 4, Left Lower Extremity: 4, Right Lower Extremity: 4 Assessment and Plan (1) Subdural hemorrhage, traumatic Assessment & Plan: Clinically improving. Continue PT/OT. No need for seizure medications. 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 Continue management per nephrology. Will sign off. Status: Chronic
[2017-07-11] MEDS: Sodium Chloride 0.45% 1,000 ML IV SCH (12:54)
--- NOTE | 2017-07-11 14:10 | CP.PCM.PN ---
Subjective - Date & Time of Evaluation Date of Evaluation: 07/11/17 Time of Evaluation: 14:09 - Subjective Subjective: pt seen and examined, follow up consult is dictated #[id number] 1. hyponatremia, sec to SIADH sec to SDH s/p tolvaptan 15 mg po x 1 yesterday, na is wnl today Objective - Vital Signs/Intake and Output Vital Signs (last 24 hours): Temp Pulse Resp BP Pulse Ox 97.5 F L 70 18 142/82 100 07/11/17 07:49 07/11/17 07:49 07/11/17 07:49 07/11/17 07:49 07/11/17 07:49 - Medications Medications: Current Medications Acetaminophen (Tylenol 325mg Tab) 650 mg PO Q6 PRN PRN Reason: Headache Last Admin: 07/09/17 08:20 Dose: 650 mg Famotidine (Pepcid) 40 mg PO DAILY [facility] Last Admin: 07/11/17 08:22 Dose: 40 mg Folic Acid (Folic Acid) 1 mg PO DAILY [facility] Last Admin: 07/11/17 08:22 Dose: 1 mg Multivitamins/Minerals (Therapeutic-M Tab) 1 tab PO DAILY [facility] Last Admin: 07/11/17 10:00 Dose: 1 tab Sodium Chloride (Sodium Chloride Tab) 1 gm PO Q8 [facility] Last Admin: 07/11/17 12:59 Dose: 1 gm Tamsulosin HCl (Flomax) 0.4 mg PO DAILY [facility] Last Admin: 07/11/17 08:22 Dose: 0.4 mg Thiamine HCl (Vitamin B1 Tab) 100 mg PO DAILY [facility] Last Admin: 07/11/17 08:22 Dose: 100 mg - Labs Labs: 07/01/17 06:20 07/11/17 06:30 PT 11.1 Seconds (9.8-13.1) 07/01/17 06:20 INR 1.1 (0.9-1.2) 07/01/17 06:20 APTT 34.8 Seconds (25.6-37.1) 07/01/17 06:20
--- NOTE | 2017-07-11 23:33 | CP.PCM.PN ---
Subjective - Date & Time of Evaluation Date of Evaluation: 07/11/17 Time of Evaluation: 14:15 Objective - Vital Signs/Intake and Output Vital Signs (last 24 hours): Temp Pulse Resp BP Pulse Ox 97.0 F L 72 19 139/78 99 07/11/17 20:03 07/11/17 20:03 07/11/17 20:03 07/11/17 20:03 07/11/17 20:03 - Medications Medications: Current Medications Acetaminophen (Tylenol 325mg Tab) 650 mg PO Q6 PRN PRN Reason: Headache Last Admin: 07/09/17 08:20 Dose: 650 mg Famotidine (Pepcid) 40 mg PO DAILY [facility] Last Admin: 07/11/17 08:22 Dose: 40 mg Folic Acid (Folic Acid) 1 mg PO DAILY [facility] Last Admin: 07/11/17 08:22 Dose: 1 mg Multivitamins/Minerals (Therapeutic-M Tab) 1 tab PO DAILY [facility] Last Admin: 07/11/17 10:00 Dose: 1 tab Sodium Chloride (Sodium Chloride Tab) 1 gm PO Q8 [facility] Last Admin: 07/11/17 21:21 Dose: 1 gm Tamsulosin HCl (Flomax) 0.4 mg PO DAILY [facility] Last Admin: 07/11/17 08:22 Dose: 0.4 mg Thiamine HCl (Vitamin B1 Tab) 100 mg PO DAILY [facility] Last Admin: 07/11/17 08:22 Dose: 100 mg - Labs Labs: 07/01/17 06:20 07/11/17 06:30 PT 11.1 Seconds (9.8-13.1) 07/01/17 06:20 INR 1.1 (0.9-1.2) 07/01/17 06:20 APTT 34.8 Seconds (25.6-37.1) 07/01/17 06:20
[2017-07-12 08:18] VITALS: RESP 20
[2017-07-12] MEDS: Multivitamin With Minerals Tab PO SCH (08:39)
[2017-07-12 08:50] LABS: BLOOD UREA NITROGEN 29 mg/dl (9-20); CALCIUM 9.1 mg/dL (8.4-10.2); CARBON DIOXIDE 33 mmol/L (22-30); CHLORIDE 95 mmol/L (98-107); GFR AFRICAN-AMERICAN > 60; GLUCOSE,RANDOM 78 mg/dL (75-110); POTASSIUM 4.4 MMOL/L (3.6-5.0); SODIUM 135 mmol/l (132-148)
--- NOTE | 2017-07-12 22:03 | CP.PCM.PN ---
Subjective - Date & Time of Evaluation Date of Evaluation: 07/12/17 Time of Evaluation: 21:15 Objective - Vital Signs/Intake and Output Vital Signs (last 24 hours): Temp Pulse Resp BP Pulse Ox 97.4 F L 79 20 133/73 99 07/12/17 20:19 07/12/17 20:19 07/12/17 20:19 07/12/17 20:19 07/12/17 20:19 - Medications Medications: Current Medications Acetaminophen (Tylenol 325mg Tab) 650 mg PO Q6 PRN PRN Reason: Headache Last Admin: 07/09/17 08:20 Dose: 650 mg Famotidine (Pepcid) [address] [facility] Last Admin: 07/12/17 08:39 Dose: 40 mg Folic Acid (Folic Acid) [address] [facility] Last Admin: 07/12/17 08:39 Dose: 1 mg Multivitamins/Minerals (Therapeutic-M Tab) [address] [facility] Last Admin: 07/12/17 08:39 Dose: 1 tab Sodium Chloride (Sodium Chloride Tab) [address] [facility] Last Admin: 07/12/17 21:07 Dose: 1 gm Tamsulosin HCl (Flomax) 0.[address] [facility] Last Admin: 07/12/17 08:39 Dose: 0.4 mg Thiamine HCl (Vitamin B1 Tab) [address] [facility] Last Admin: 07/12/17 08:39 Dose: 100 mg - Labs Labs: 07/01/17 06:20 07/12/17 06:00 PT 11.1 Seconds (9.8-13.1) 07/01/17 06:20 INR 1.1 (0.9-1.2) 07/01/17 06:20 APTT 34.8 Seconds (25.6-37.1) 07/01/17 06:20
[2017-07-13 07:53] LABS: BLOOD UREA NITROGEN 30 mg/dl (9-20); CALCIUM 8.9 mg/dL (8.4-10.2); CARBON DIOXIDE 32 mmol/L (22-30); CHLORIDE 94 mmol/L (98-107); GFR AFRICAN-AMERICAN > 60; GLUCOSE,RANDOM 80 mg/dL (75-110); POTASSIUM 4.5 MMOL/L (3.6-5.0); SODIUM 131 mmol/l (132-148)
[2017-07-13] MEDS: Multivitamin With Minerals Tab PO SCH (08:47)
[2017-07-13 09:31] VITALS: BP 130/82; PULSE 68; TEMP 97.6; O2SAT 98
--- NOTE | 2017-07-13 13:19 | CP.PCM.PN ---
Subjective - Date & Time of Evaluation Date of Evaluation: 07/13/17 Time of Evaluation: 13:16 - Subjective Subjective: pt is seen and examined, follow up consult is dictated # 1. hyponatremia sec to SIADH sec to SDH 2. HTN 3. SDH c/w nacl tab 1 gm po tid restrict fluids to 1 lit/day repeat bmp in few days f/u in the office on 07/29/2017 f/u with pmd pt may need tolvaptan 15 mg po once a week if serum na continue to go down Objective - Vital Signs/Intake and Output Vital Signs (last 24 hours): Temp Pulse Resp BP Pulse Ox 97.6 F 68 20 130/82 98 07/13/17 09:30 07/13/17 09:30 07/13/17 09:30 07/13/17 09:30 07/13/17 09:30 - Medications Medications: Current Medications Acetaminophen (Tylenol 325mg Tab) 650 mg PO Q6 PRN PRN Reason: Headache Last Admin: 07/09/17 08:20 Dose: 650 mg Famotidine (Pepcid) 40 mg PO DAILY [facility] Last Admin: 07/13/17 08:47 Dose: 40 mg Folic Acid (Folic Acid) 1 mg PO DAILY [facility] Last Admin: 07/13/17 08:47 Dose: 1 mg Multivitamins/Minerals (Therapeutic-M Tab) 1 tab PO DAILY [facility] Last Admin: 07/13/17 08:47 Dose: 1 tab Sodium Chloride (Sodium Chloride Tab) 1 gm PO Q8 [facility] Last Admin: 07/13/17 05:55 Dose: 1 gm Tamsulosin HCl (Flomax) 0.4 mg PO DAILY [facility] Last Admin: 07/13/17 08:47 Dose: 0.4 mg Thiamine HCl (Vitamin B1 Tab) 100 mg PO DAILY [facility] Last Admin: 07/13/17 08:47 Dose: 100 mg - Labs Labs: 07/01/17 06:20 07/13/17 06:30 PT 11.1 Seconds (9.8-13.1) 07/01/17 06:20 INR 1.1 (0.9-1.2) 07/01/17 06:20 APTT 34.8 Seconds (25.6-37.1) 07/01/17 06:20
--- NOTE | 2017-07-13 23:35 | CP.PCM.DIS ---
Provider - Provider Date of Admission: 06/30/17 20:00 Attending physician: Bibiana Malone MD Time Spent in preparation of Discharge (in minutes): 25 Hospital Course - Lab Results Lab Results: Most Recent Lab Values WBC 6.3 K/uL (4.8-10.8) 07/01/17 06:20 RBC 3.82 Mil/uL (4.40-5.90) L 07/01/17 06:20 Hgb 11.4 g/dL (12.0-18.0) L 07/01/17 06:20 Hct 33.0 % (35.0-51.0) L 07/01/17 06:20 MCV 86.4 fl (80.0-94.0) 07/01/17 06:20 MCH 29.9 pg (27.0-31.0) 07/01/17 06:20 MCHC 34.6 g/dL (33.0-37.0) 07/01/17 06:20 RDW 13.3 % (11.5-14.5) 07/01/17 06:20 Plt Count 285 K/uL (130-400) 07/01/17 06:20 PT 11.1 Seconds (9.8-13.1) 07/01/17 06:20 INR 1.1 (0.9-1.2) 07/01/17 06:20 APTT 34.8 Seconds (25.6-37.1) 07/01/17 06:20 Sodium 131 mmol/l (132-148) L 07/13/17 06:30 Potassium 4.5 MMOL/L (3.6-5.0) 07/13/17 06:30 Chloride 94 mmol/L (98-107) L 07/13/17 06:30 Carbon Dioxide 32 mmol/L (22-30) H 07/13/17 06:30 Anion Gap 10 (10-20) 07/13/17 06:30 BUN 30 mg/dl (9-20) H 07/13/17 06:30 Creatinine 0.9 mg/dL (0.8-1.5) 07/13/17 06:30 Est GFR ( Amer) > 60 07/13/17 06:30 Est GFR (Non-Af Amer) > 60 07/13/17 06:30 Random Glucose 80 mg/dL (75-110) 07/13/17 06:30 Serum Osmolality 265 mosm/kg (272-300) L 07/02/17 20:00 Calcium 8.9 mg/dL (8.4-10.2) 07/13/17 06:30 Total Bilirubin 0.3 mg/dl (0.2-1.3) 07/11/17 06:30 AST 21 U/L (17-59) 07/11/17 06:30 ALT 34 U/L (21-72) 07/11/17 06:30 Alkaline Phosphatase 83 U/L (38-126) 07/11/17 06:30 Total Protein 5.8 G/DL (6.3-8.2) L 07/11/17 06:30 Albumin 3.4 g/dL (3.5-5.0) L 07/11/17 06:30 Globulin 2.3 gm/dL (2.2-3.9) 07/11/17 06:30 Albumin/Globulin Ratio 1.5 (1.0-2.1) 07/11/17 06:30 Alpha Fetoprotein 1.9 IU/mL (0.0-7.22) 07/06/17 06:00 Carcinoembryonic Ag 1.5 ng/mL (0-3.0) 07/06/17 06:00 CA 19-9 Antigen 7.9 U/mL (0-37) 07/06/17 06:00 Prostate Specific Ag 0.415 ng/ML (0.00-4.0) 07/06/17 06:00 TSH 3rd Generation 2.07 mIU/ML (0.46-4.68) 07/01/17 06:20 Urine Osmolality 559 mosm/kg (300-1000) 07/01/17 21:50 Ur Random Sodium 73 mmol/L 07/01/17 21:50 Discharge Exam - Head Exam Head Exam: ATRAUMATIC, NORMAL INSPECTION, NORMOCEPHALIC Discharge Plan - Follow Up Plan Condition: GOOD Disposition: HOME/ ROUTINE Instructions: Famotidine (By mouth), Thiamine (Vitamin B-1) (By mouth), Folic Acid (By mouth), Multivitamins, Adult Formula (By mouth), Tamsulosin (By mouth) , Sodium Chloride (By mouth), Fall Prevention for Older Adults (GEN), Subdural Hematoma (DC), Fluid Restriction (DC) Additional Instructions: 1. Please call Dr. Millan's ( NEUROLOGIST) office at [phone] for follow-up appointment. - Please obtain referral from Dr. Lombardo's office. - Please call [facility] to arrange for your transportation 2. You have a follow-up appointment with Dr. Mullins ( KIDNEY SPECIALIST ) on 07/29/2017 at 2pm. - Please obtain referral from Dr. Lombardo's office. - Please call [facility] to arrange for your transportation [phone] 3. Please have a blood work BMP ( blood chemistry ) done from Dr. Lombardo's office and have it done on Thursday07/27/2017. Please have the result faxed to Dr. Mullins's office: [phone]. The doctor needs to see the result of the blood work during your check -up. 3. Please stop drinking alcohol and continue taking all of the medications we' re sending you home with as directed. 4. Please limit your fluid intake to ONE LITER per day. 5. Please do not take any home medications not included on the list unless directed by your physician.
--- NOTE | 2017-07-14 07:14 | CON ---
DATE: FOLLOWUP RENAL CONSULTATION The patient is located in room 320, bed #1. REQUESTED BY: Bibiana Malone MD REASON FOR FOLLOWUP: Hyponatremia and SIADH for further evaluation. HISTORY OF PRESENT ILLNESS: Mr. Knox is 71 years old elderly male with a past medical history significant for hypertension, history of EtOH abuse, recurrent fall, subdural hematoma was admitted initially to [facility] with altered mental status on 06/26/2017 and found to have severe hyponatremia. Keppra was discontinued and subsequently treated for severe hyponatremia and diagnosis of SIADH, treated with hypertonic saline and tolvaptan. From there, the patient was transferred to acute rehab for physical therapy. The patient is feeling better, not in acute distress. Denies headache or dizziness. Denies any chest pain or palpitation. No nausea, vomiting or diarrhea. The patient is being discharged this evening. PHYSICAL EXAMINATION: GENERAL: Mr. Knox is 71 years old elderly male, moderately-built, moderately-nourished, not in acute distress. VITAL SIGNS: As follows; blood pressure 130/82, pulse 68, respirations 20, temperature 97.6 and saturation 98%. Height 5 feet 8 inches and weight is 145 pounds. HEENT: Pupils normal, reactive to light and accommodation. Conjunctivae pink. Sclerae anicteric. Tongue is moist. Trachea is midline. LUNGS: Symmetry on both side. Bilateral breath sounds present. Clear on auscultation. CVS: [place] in the fifth intercostal space, also in the midclavicular line. S1 and S2 audible. No murmur or gallop. ABDOMEN: Normal in appearance, soft and tympanic. No guarding. No hepatosplenomegaly. ELIGIBILITY ANALYST: The patient is alert, awake and oriented x2-3. Sensory and motor system is grossly within normal limits. Cranial nerves II through XII grossly intact. EXTREMITIES: No cyanosis. No clubbing. No edema. SKIN: Turgor is normal. CURRENT MEDICATIONS: Include as follows: Thiamine 100 mg daily, Flomax 0.4 mg daily, sodium chloride tablet 1 g q. 8 hours, multivitamin, folic acid 1 mg p.o. daily and famotidine 40 mg p.o daily. LABORATORY DATA: Include as follows: As of 07/13/2017; sodium 131, potassium 4.5, chloride 94, CO2 of 32, BUN 30, creatinine 0.9, glucose 80 and calcium 8.9. ASSESSMENT: In summary, Mr. Knox is 71 years old elderly male with hypertension, history of fall, subdural hematoma, questionable alcohol related seizures, off Dilantin and off Keppra and sodium chloride tablet. 1. Hyponatremia, most likely secondary to syndrome of inappropriate antidiuretic hormone secondary to subdural hematoma. Serum sodium is slightly low today. The patient was given tolvaptan on 07/10/2017 i.e., is on Thursday. Now, serum sodium is 131. 2. Hypertension, blood pressure is stable not in any hypertensive medication. 3. Subdural hematoma, stable. PLAN: Continue sodium chloride tablet 1 g p.o. t.i.d. and restrict fluids to 1 L per day and follow with PMD as scheduled and the patient can be followed in my office on 07/29/2017, which is earliest appointment available and advice to monitor BMP as an outpatient. If serum sodium continues to decrease as an outpatient, the patient may need tolvaptan 15 mg once a week. We will follow with you. Thank you allowing me to participate in your patient's care. Kevin Mullins MD
== END 2017-07-13 15:45 | disposition home or self-care (01) | DRG 945 ==
PROVIDERS: ADMIT Internal Medicine; ATTEND Internal Medicine
PROC: F06Z6ZZ Communicative/Cognitive Integration Skills Treatment (ICD-10-PCS; principal; 2017-06-30)
PROC: F08Z2FZ Grooming/Personal Hygiene Treatment using Assistive, Adaptive, Supportive or Protective Equipment (ICD-10-PCS; 2017-06-30)
PROC: F08Z1FZ Dressing Techniques Treatment using Assistive, Adaptive, Supportive or Protective Equipment (ICD-10-PCS; 2017-06-30)
PROC: F08Z4FZ Home Management Treatment using Assistive, Adaptive, Supportive or Protective Equipment (ICD-10-PCS; 2017-06-30)
PROC: F07Z9ZZ Gait Training/Functional Ambulation Treatment (ICD-10-PCS; 2017-06-30)
PROC: F07L6ZZ Therapeutic Exercise Treatment of Musculoskeletal System - Lower Back / Lower Extremity (ICD-10-PCS; 2017-06-30)
DX: S06.5X9D Traumatic subdural hemorrhage with loss of consciousness of unspecified duration, subsequent encounter (principal); E22.2 Syndrome of inappropriate secretion of antidiuretic hormone; G40.909 Epilepsy, unspecified, not intractable, without status epilepticus; W19.XXXD Unspecified fall, subsequent encounter; Z91.81 History of falling; I10 Essential (primary) hypertension; Z86.73 Personal history of transient ischemic attack (TIA), and cerebral infarction without residual deficits; Z87.891 Personal history of nicotine dependence; R53.81 Other malaise; R79.89 Other specified abnormal findings of blood chemistry; M79.673 Pain in unspecified foot

== ENCOUNTER 2017-09-15 13:01 | Inpatient (IN) | payer MEDICARE, MEDICAID ==
[2017-09-15] MEDS ORDERED: Sodium Chloride 0.9% 500 ML IV STA (14:18)
--- NOTE | 2017-09-15 14:22 | ED PDOC ---
HPI: Head Injury Time Seen by Provider: 09/15/17 14:06 Chief Complaint (Nursing): Trauma Chief Complaint (Provider): Dizziness History Per: Patient History/Exam Limitations: no limitations Onset/Duration Of Symptoms: Days (Thursday) Additional Complaint(s): Pt. was sitting and started getting light-headed and then fell off his chair and hit head on the ground. Pt. had syncope for 2-3 min. Remembers ambulance present when he woke up. Pt. then refused to come to the hospital. Pt. continues feeling dizzy and sister told him to come to the hospital. Denies any chest pain, dyspnea, weakness, numbness, tingles, arm or leg pain. No cough. No neck pain. Ambulating with the dizziness. States he takes a bp med but denies high blood pressure. Pain to the left upper face and left head from fall. NIHSS Stroke Scale - Date/Time Evaluation Performed Date Performed: 09/15/17 Time Performed: 15:00 When Was NIHSS Performed: Baseline - How Severe is the Stroke Level of Consciousness: 0=Alert LOC to Questions: 0=Both comments correct LOC to commands: 0=Obeys both correctly Best Gaze: 0=Normal Visual: 0=No visual loss Facial: 0=Normal Motor Arm - Left: 0=No drift Motor Arm - Right: 0=No drift Motor Leg - Left: 0=No drift Motor Leg - Right: 0=No drift Limb Ataxia: 0=Absent Sensory: 0=Normal Best Language: 0=No aphasia Dysarthia: 0=Normal articulation Extinction & Inattention (Neglect): 0=Normal, no object Score: 0 rTPA Inclusion/Exclusion - Refusal of Treatment Patient Refused Treatment: No - Inclusion Criteria for Altepase Patient is 18 years or Older: Yes The Clinical Diagnosis of Ischemic Stroke That is Causing a Potentially Disabling Neurological Deficit: No Time of Onset is Well Established to be Less Than 270 Minute Before Treatment Would Begin: No Risk/Benefit Discussed With Patient/Family Member Present: No Past Medical History Reviewed: Nursing Documentation, Vital Signs Vital Signs: Last Vital Signs Temp Pulse 74 09/15/17 13:06 Resp 18 09/15/17 13:06 BP 136/75 09/15/17 13:06 Pulse Ox 99 09/15/17 13:06 - Medical History PMH: Arthritis, HTN Denies: HIV, Chronic Kidney Disease - Family History Family History: States: Unknown Family Hx - Social History Current smoker - smoking cessation education provided: No Alcohol: None Drugs: Denies - Immunization History Hx Tetanus Toxoid Vaccination: Yes Hx Influenza Vaccination: Yes Hx Pneumococcal Vaccination: No - Home Medications Home Medications: Ambulatory Orders Medication Instructions Recorded Famotidine [Pepcid] 40 mg PO DAILY tab 06/30/17 Folic Acid 1 mg PO DAILY tab 06/30/17 Multivitamins [Hexavitamin] 1 tab PO DAILY tab 06/30/17 Sodium Chloride [Sodium Chloride 1 gm PO Q8 tab 06/30/17 Tab] Tamsulosin [Flomax] 0.4 mg PO DAILY cap 06/30/17 Thiamine [Vitamin B1 Tab] 100 mg PO DAILY tab 06/30/17 - Allergies Allergies/Adverse Reactions: Allergies Allergy/AdvReac Type Severity Reaction Status Date / Time No Known Allergies Allergy Verified 06/30/17 20:02 Review of Systems ROS Statement: Except As Marked, All Systems Reviewed And Found Negative Neurological: Positive for: Headache, Dizziness Physical Exam - Reviewed Nursing Documentation Reviewed: Yes Vital Signs Reviewed: Yes - Physical Exam Appears: Positive for: Non-toxic, No Acute Distress Head Exam: Positive for: NORMAL INSPECTION, NORMOCEPHALIC. Negative for: ATRAUMATIC (L periorbital tenderness and swelling, echymosis; L scalp hematoma, tender, and echymosis) Skin: Positive for: Normal Color, Warm, DRY Eye Exam: Positive for: EOMI, PERRL, Periorbital swelling (L), Periorbital tenderness ENT: Positive for: Normal ENT Inspection, Other (no septal hematoma) Neck: Positive for: Normal, Painless ROM, Supple, Trachea Midline Cardiovascular/Chest: Positive for: Regular Rate, Rhythm Respiratory: Positive for: CNT, Normal Breath Sounds Gastrointestinal/Abdominal: Positive for: Normal Exam, Bowel Sounds, Soft. Negative for: Tenderness Back: Positive for: Normal Inspection. Negative for: L CVA Tenderness, R CVA Tenderness Extremity: Positive for: Normal ROM. Negative for: Tenderness, Pedal Edema Neurologic/Psych: Positive for: Alert, sales agent trading stamps II-XII, Oriented. Negative for: Motor/Sensory Deficits, Aphasia, Facial Droop - Laboratory Results Result Diagrams: 09/15/17 14:45 09/15/17 14:45 Interpretation Of Abn Labs: no acute - ECG ECG Rhythm: Positive for: Nonspecific Changes O2 Sat by Pulse Oximetry: 99 Pulse Ox Interpretation: Normal - CT Scan/US ct Other Rad Studies (CT/US): Read By Radiologist Other Rad Interpretation: subdural hematoma - Progress ED Course And Treament: 1432: Per notes, pt. with subdural hematoma in Aug and sz hx. Had low sodium. IMPRESSION: 1. Acute right convexity subdural hematoma measuring 7 mm in maximum width with local regional mass effect without midline shift or herniation. 2. Small left frontal and periorbital soft tissue swelling. 1623: Stable. Spoke with Dr. Queen. States no additional tx at this time. Spoke with Dr. Vance who will admit ICU. 1630: Spoke with Dr. Malone. Will admit to his service. AAOx3. Pain free. Disposition - Clinical Impression Clinical Impression: Subdural hematoma, Syncope - Patient ED Disposition Is Patient to be Admitted: Yes Counseled Patient/Family Regarding: Studies Performed, Diagnosis - Disposition Disposition Time: 16:00 Condition: FAIR - Pt Status Changed To: Hospital Disposition Of: Inpatient - Admit Certification Admit to Inpatient:: After my assessment, the patient will require hospitalization for at least two midnights. This is because of the severity of symptoms shown, intensity of services needed, and/or the medical risk in this patient being treated as an outpatient. - POA Present On Arrival: Falls Or Trauma
[2017-09-15 14:56] LABS: BASO # 0.1 K/uL (0.0-0.2); BASO % 1.3 % (0.0-2.0); EOS # 0.2 K/uL (0.0-0.7); EOS % 3.5 % (0.0-4.0); HEMATOCRIT 34.8 % (35.0-51.0); LYMPH # 1.2 K/uL (1.0-4.3); LYMPH % 24.6 % (20.0-40.0); MEAN CELL VOLUME 88.1 fl (80.0-94.0); MEAN CORPUSCULAR HEMOGLOBIN 29.3 pg (27.0-31.0); MEAN CORPUSCULAR HGB CONC 33.2 g/dL (33.0-37.0); MEAN PLATELET VOLUME 7.7 fl (7.2-11.7); MONO # 0.6 K/uL (0.0-0.8); MONO % 11.9 % (0.0-10.0); NEUT # 2.8 K/uL (1.8-7.0); NEUT % 58.7 % (50.0-75.0); RED CELL DISTRIBUTION WIDTH 13.4 % (11.5-14.5); WHITE BLOOD COUNT 4.8 K/uL (4.8-10.8)
[2017-09-15 14:59] LABS: PARTIAL THROMBOPLASTIN TIME 34.1 Seconds (25.6-37.1)
[2017-09-15 15:00] LABS: ALB/GLOB RATIO 1.6 (1.0-2.1); ALCOHOL SERUM < 10 mg/dl (0-10); ALKALINE PHOSPHATASE 76 U/L (38-126); ALT/SGPT 35 U/L (21-72); AST/SGOT 34 U/L (17-59); BILIRUBIN,TOTAL 0.5 mg/dl (0.2-1.3); BLOOD UREA NITROGEN 23 mg/dl (9-20); CALCIUM 8.5 mg/dL (8.4-10.2); CARBON DIOXIDE 27 mmol/L (22-30); CHLORIDE 102 mmol/L (98-107); GFR AFRICAN-AMERICAN > 60; GLUCOSE,RANDOM 89 mg/dL (75-110); POTASSIUM 4.3 MMOL/L (3.6-5.0); SODIUM 137 mmol/l (132-148)
--- NOTE | 2017-09-15 15:31 | CT ---
PROCEDURE: CT HEAD WITHOUT CONTRAST. HISTORY: Headache COMPARISON: 06/25/2017. TECHNIQUE: Axial computed tomography images were obtained through the head/brain without intravenous contrast. Radiation dose: Total exam DLP = 823.38 mGy-cm. This CT exam was performed using one or more of the following dose reduction techniques: Automated exposure control, adjustment of the mA and/or kV according to patient size, and/or use of iterative reconstruction technique. FINDINGS: HEMORRHAGE: There is an acute right convexity subdural hematoma measuring 7 mm maximum width effacement of the right cortical sulci. There is no midline shift or herniation. BRAIN: There is no acute territorial infarction. VENTRICLES: There is mild age-related global parenchymal volume loss and proportionate enlargement of the ventricles and cortical sulci. There is a cavum septum pellucidum. CALVARIUM: There is no calvarial fracture. There is small left frontal and periorbital soft tissue swelling. PARANASAL SINUSES: Predominantly clear. MASTOID AIR CELLS: Predominantly clear. OTHER FINDINGS: None. IMPRESSION: 1. Acute right convexity subdural hematoma measuring 7 mm in maximum width with local regional mass effect without midline shift or herniation. 2. Small left frontal and periorbital soft tissue swelling. Critical findings were discussed with Dr. Jason Cormier in the ER on 09/15/2017 at 3:25 p.m.
--- NOTE | 2017-09-15 15:58 | CT ---
PROCEDURE: CT MAXILLOFACIAL BONES WITHOUT CONTRAST HISTORY: facial pain. Left periorbital ecchymosis. COMPARISON: None TECHNIQUE: Contiguous axial CT images of the maxillofacial bones were obtained. Coronal and sagittal reformats were generated. Radiation dose: Total exam DLP = 753.63 mGy-cm. This CT exam was performed using one or more of the following dose reduction techniques: Automated exposure control, adjustment of the mA and/or kV according to patient size, and/or use of iterative reconstruction technique. FINDINGS: NASAL BONES: No fracture. Deviated nasal septum towards the left. ORBITS: No orbital fracture. The orbital floor and lamina papyracea are intact bilaterally. No intraorbital hemorrhage. Preseptal soft tissue swelling left superior palpebrum and soft tissue swelling left frontal scalp. Globes are rounded and symmetric. PARANASAL SINUSES/ MASTOIDS: Clear. MAXILLA: Fractured left maxillary tooth. Large caries right frontal maxillary tooth. Minimal periapical lucency both remaining maxillary teeth. MANDIBLE/ TEMPOROMANDIBULAR JOINTS: No fracture. Temporomandibular joints are intact. Caries involving right frontal mandibular teeth. Small periapical lucency involving right mandibular incisor. SKULL BASE: Unremarkable. TEMPORAL BONES: Middle ears and mastoid grossly unremarkable. OTHER FINDINGS: None. IMPRESSION: No evidence facial fracture. Dental caries, periapical lucencies and fractured left frontal maxillary tooth. Deviated nasal septum. Preseptal soft tissue thickening left superior palpebrum. Left frontal scalp soft tissue swelling.
--- NOTE | 2017-09-15 16:09 | CT ---
PROCEDURE: CT Cervical Spine without contrast HISTORY: <neck pain> COMPARISON: None available. TECHNIQUE: Axial computed tomography images were obtained of the cervical spine without the use of intravenous contrast. Coronal and sagittal reformatted images were created and reviewed. Radiation dose: Total exam DLP = 488.07 mGy-cm. This CT exam was performed using one or more of the following dose reduction techniques: Automated exposure control, adjustment of the mA and/or kV according to patient size, and/or use of iterative reconstruction technique. FINDINGS: VERTEBRAE: Vertebral bodies maintained in height. Normal alignment maintained. Atlantoaxial articulation and odontoid process are intact. DISCS/SPINAL CANAL/NEURAL FORAMINA: Narrowing of C2-3 intervertebral disc space. Large anterior osteophyte. There is preservation in height of the remaining intervertebral disc spaces though there are osteophytes about multiple additional intervertebral disc spaces. No evidence of disc herniation. No central spinal stenosis. There is moderate left C4-5 neural foraminal stenosis. Mild bilateral C5-6 neural foraminal stenosis. PARASPINAL SOFT TISSUES: Significant for evidence of centrilobular pulmonary emphysema. OTHER FINDINGS: None. IMPRESSION: No acute fracture/ dislocation. Degenerative disc disease at C2-3. No central spinal stenosis. Neural foraminal stenosis C4-5 and C5-6. Pulmonary emphysema.
--- NOTE | 2017-09-15 17:11 | RAD ---
HISTORY: dizziness COMPARISON: No prior. FINDINGS: LUNGS: No active pulmonary disease. PLEURA: No significant pleural effusion identified, no pneumothorax apparent. CARDIOVASCULAR: Normal. OSSEOUS STRUCTURES: No significant abnormalities. VISUALIZED UPPER ABDOMEN: Normal. OTHER FINDINGS: None. IMPRESSION: No active disease.
--- NOTE | 2017-09-15 18:17 | CP.CCUPN ---
CCU Subjective - Physician Review Events Since Last Encounter (Free Text): 09/15/17 18:28 71 Years old former smoker Male with PMHx of Arthritis and essential HTN who presented to the Emergency department following a fall off his chair and hit head on the ground. Patient felt dizzy, and lost conscious for 2-3 min, Head CT scan showed acute right convexity subdural hematoma measuring 7 mm in maximum width with local regional mass effect without midline shift or herniation. Pt comfortable, NAD Pt AAO x3. Alert, follows some commands Denies any chest pain, SOB or Palpitations Denies no headaches, vision changes, vertigo, double vision, dysphagia, weakness , numbness or trouble with word finding. Afebrile, NSR on the monitor ER physician Spoke with Dr. Queen, States no additional surgical tx at this time. 09/15/17 18:56 Of note that Patient was recently admitted to the [facility] for 6mm subdural hematoma, Evaluated by neurology, the impression was that his seizures were likely alcohol withdrawal related and that he does not need to be on AEDs, Patient was taken off seizure medications CCU Objective - Vital Signs / Intake & Output Vital Signs (Last 4 hours): Vital Signs Temp Pulse Resp BP Pulse Ox 09/15/17 17:28 98.0 F 59 L 17 150/87 09/15/17 17:25 60 19 152/94 H 95 09/15/17 16:31 99 09/15/17 16:02 59 L 17 150/87 96 09/15/17 15:30 59 L 20 168/89 H 95 09/15/17 14:30 62 18 144/79 96 Intake and Output (Last 8hrs): Intake & Output 09/15/17 09/15/17 09/15/17 06:59 14:59 22:59 Weight 147 lb - Physical Exam Physical Exam Limitations: Negative for: Altered Mental Status, Clinical Condition, Intoxication, Psychotic Head: Positive for: Normocephalic, Tenderness, Contusion, Other (L periorbital tenderness and swelling, echymosis; L scalp hematoma, tender, and echymosis). Negative for: Atraumatic Pupils: Positive for: PERRL Extroacular Muscles: Positive for: EOMI Conjunctiva: Positive for: Normal. Negative for: Injected, Icteric Ears: Positive for: Normal Neck: Positive for: Normal Range of Motion, Trachea Midline. Negative for: Meningeal Signs, MIDLINE TENDERNESS, Paraspinal Tenderness, JVD, Lymphadenopathy , Bruit, Other Respiratory/Chest: Positive for: Clear to Auscultation, Good Air Exchange. Negative for: Respiratory Distress, Accessory Muscle Use, Wheezes, Decreased Breath Sounds Cardiovascular: Positive for: Regular Rate and Rhythm, Normal S1, S2, Peripheal Pulses Present. Negative for: Murmurs, Irregular Rhythm, Tachycardic, Bradycardic Abdomen: Positive for: Normal Bowel Sounds. Negative for: Tenderness, Distention Upper Extremity: Positive for: Normal Inspection, Normal ROM, NORMAL PULSES, Capillary Refill < 2s. Negative for: Cyanosis, Edema Lower Extremity: Positive for: Normal Inspection, NORMAL PULSES. Negative for: Edema, CALF TENDERNESS, Cyanosis Neurological: Positive for: GCS=15, CN II-XII Intact, Speech Normal, Motor Func Grossly Intact, Normal Sensory Function - Medications Active Medications: Active Medications Generic Name Dose Route Start Last Admin Trade Name Freq PRN Reason Stop Dose Admin Sodium Chloride 500 mls @ 100 mls/hr 09/15/17 14:18 09/15/17 15:25 Sodium Chloride 0.9% IV 09/15/17 19:17 100 mls/hr .Q5H STA Administration - Patient Studies Lab Studies: Lab Studies 09/15/17 09/15/17 09/15/17 Range/Units 14:45 14:45 14:45 WBC 4.8 (4.8-10.8) K/uL RBC 3.95 L (4.40-5.90) Mil/uL Hgb 11.6 L (12.0-18.0) g/dL Hct 34.8 L (35.0-51.0) % MCV 88.1 (80.0-94.0) fl MCH 29.3 (27.0-31.0) pg MCHC 33.2 (33.0-37.0) g/dL RDW 13.4 (11.5-14.5) % Plt Count 196 (130-400) K/uL MPV 7.7 (7.2-11.7) fl Neut % (Auto) 58.7 (50.0-75.0) % Lymph % (Auto) 24.6 (20.0-40.0) % [place]kin % (Auto) 11.9 H (0.0-10.0) % Eos % (Auto) 3.5 (0.0-4.0) % Baso % (Auto) 1.3 (0.0-2.0) % Neut # 2.8 (1.8-7.0) K/uL Lymph # 1.2 (1.0-4.3) K/uL L[place]kin # 0.6 (0.0-0.8) K/uL Eos # 0.2 (0.0-0.7) K/uL Baso # 0.1 (0.0-0.2) K/uL PT 10.8 (9.8-13.1) Seconds INR 1.0 (0.9-1.2) APTT 34.1 (25.6-37.1) Seconds Sodium 137 (132-148) mmol/l Potassium 4.3 (3.6-5.0) MMOL/L Chloride 102 (98-107) mmol/L Carbon Dioxide 27 (22-30) mmol/L Anion Gap 12 (10-20) BUN 23 H (9-20) mg/dl Creatinine 1.2 (0.8-1.5) mg/dL Est GFR ( Amer) > 60 Est GFR (Non-Af Amer) 60 Random Glucose 89 (75-110) mg/dL Calcium 8.5 (8.4-10.2) mg/dL Total Bilirubin 0.5 (0.2-1.3) mg/dl AST 34 (17-59) U/L ALT 35 (21-72) U/L Alkaline Phosphatase 76 (38-126) U/L Troponin I < 0.0120 (0.00-0.120) ng/mL Total Protein 6.0 L (6.3-8.2) G/DL Albumin 3.7 (3.5-5.0) g/dL Globulin 2.3 (2.2-3.9) gm/dL Albumin/Globulin Ratio 1.6 (1.0-2.1) Alcohol, Quantitative < 10 (0-10) mg/dl Laboratory Results - last 24 hr 09/15/17 09/15/17 09/15/17 14:45 14:45 14:45 WBC 4.8 RBC 3.95 L Hgb 11.6 L Hct 34.8 L MCV 88.1 MCH 29.3 MCHC 33.2 RDW 13.4 Plt Count 196 MPV 7.7 Neut % (Auto) 58.7 Lymph % (Auto) 24.6 [place] % (Auto) 11.9 H Eos % (Auto) 3.5 Baso % (Auto) 1.3 Neut # 2.8 Lymph # 1.2 L[place]kin # 0.6 Eos # 0.2 Baso # 0.1 PT 10.8 INR 1.0 APTT 34.1 Sodium 137 Potassium 4.3 Chloride 102 Carbon Dioxide 27 Anion Gap 12 BUN 23 H Creatinine 1.2 Est GFR ( Amer) > 60 Est GFR (Non-Af Amer) 60 Random Glucose 89 Calcium 8.5 Total Bilirubin 0.5 AST 34 ALT 35 Alkaline Phosphatase 76 Troponin I < 0.0120 Total Protein 6.0 L Albumin 3.7 Globulin 2.3 Albumin/Globulin Ratio 1.6 Alcohol, Quantitative < 10 EKG/Cardiology Studies: Cardiology / EKG Studies 09/15/17 14:18 ELECTROCARDIOGRAM Stat Comment: Mode Of Transportation: Reason For Exam: needed Fingerstick Blood Sugar Results: 100 Review of Systems - Constitutional Constitutional: absent: Fever, Chills, Sweats, Weakness, Malaise - Cardiovascular Cardiovascular: absent: Chest Pain, Chest Pain at Rest, Chest Pain with Activity , Diaphoresis - Respiratory Respiratory: absent: Cough, Dyspnea, Hemoptysis, Dyspnea on Exertion, Wheezing, Snoring, Stridor - Neurological Neurological: As Per HPI - Psychiatric Psychiatric: As Per HPI Critical Care Progress Note - Extremities/Vascular Does the Patient have a Central Venous Catheter?: No Does the Patient need a Central Venous Catheter?: No Does the Patient have a Petersen Catheter?: No Does the Patient need a Petersen Catheter?: No Assessment/Plan (1) Subdural hematoma Current Visit: Yes Status: Acute (2) Syncope Current Visit: Yes Status: Acute (3) Hyponatremia Current Visit: No Status: Acute Priority: High (4) Hypertension Current Visit: No Status: Chronic (5) Seizure Current Visit: No Status: Chronic - Assessment and Plan (Free Text) Assessment: Admit to ICU for Frequent Neuro check Neuro and neurosurgery consult Maintain fall and aspiration precaution Neuro check Q 2H Monitor Respiratory status IV Hydration Pain control with Tylenol PRN Clear liquid diet, Advance as tolerate PT/OT Blood glucose control Check utox, A1c, lipid panel GI/DVT PPX
[2017-09-15 19:30] VITALS: BMI 25.4
[2017-09-15] MEDS ORDERED: Sodium Chloride 0.9% 1,000 ML IV SCH (20:00)
[2017-09-16 05:38] LABS: EOS # 0.2 K/uL (0.0-0.7); EOS % 4.3 % (0.0-4.0); HEMATOCRIT 35.9 % (35.0-51.0); LYMPH # 1.3 K/uL (1.0-4.3); LYMPH % 25.2 % (20.0-40.0); MEAN CELL VOLUME 86.9 fl (80.0-94.0); MEAN CORPUSCULAR HEMOGLOBIN 29.3 pg (27.0-31.0); MEAN CORPUSCULAR HGB CONC 33.8 g/dL (33.0-37.0); MEAN PLATELET VOLUME 7.8 fl (7.2-11.7); MONO # 0.6 K/uL (0.0-0.8); MONO % 10.6 % (0.0-10.0); NEUT # 3.1 K/uL (1.8-7.0); NEUT % 58.9 % (50.0-75.0); NRBC % 0.1 % (0.0-0.0); WHITE BLOOD COUNT 5.2 K/uL (4.8-10.8)
[2017-09-16 05:41] LABS: ALB/GLOB RATIO 1.5 (1.0-2.1); ALKALINE PHOSPHATASE 70 U/L (38-126); ALT/SGPT 34 U/L (21-72); AST/SGOT 32 U/L (17-59); BILIRUBIN,TOTAL 0.7 mg/dl (0.2-1.3); BLOOD UREA NITROGEN 23 mg/dl (9-20); CARBON DIOXIDE 29 mmol/L (22-30); CHLORIDE 102 mmol/L (98-107); GFR AFRICAN-AMERICAN > 60; GLUCOSE,RANDOM 76 mg/dL (75-110); POTASSIUM 3.9 MMOL/L (3.6-5.0); SODIUM 137 mmol/l (132-148); TOTAL PROTEIN 5.8 G/DL (6.3-8.2)
[2017-09-16 05:42] LABS: CALCIUM 8.9 mg/dL (8.4-10.2)
--- NOTE | 2017-09-16 08:07 | CARD ---
APPROVED REPORT EKG Measurement Heart [id number] <Conclusion> Normal sinus rhythm Left anterior fascicular block Moderate voltage criteria for LVH, may be normal variant Cannot rule out Septal infarct, age undetermined Abnormal ECG
--- NOTE | 2017-09-16 10:29 | CP.PCM.PN ---
Subjective - Date & Time of Evaluation Date of Evaluation: 09/16/17 Time of Evaluation: 10:28 - Subjective Subjective: pt well know to us had acute sdh R small 06/20/2017 CT now shows continuing resolution of that SDH now smaller no intervention indicated pt can be d/c when otherwise medically clear Objective - Vital Signs/Intake and Output Vital Signs (last 24 hours): Temp Pulse Resp BP Pulse Ox 97.7 F 74 16 133/68 96 09/16/17 08:00 09/16/17 08:00 09/16/17 08:00 09/16/17 08:00 09/16/17 08:00 Intake and Output: 09/16/17 09/16/17 06:59 18:59 Intake Total 875 450 Output Total 1800 620 Balance -925 -170 - Medications Medications: Current Medications Thiamine HCl (Vitamin B1 Tab) 100 mg PO DAILY MELINA Last Admin: 09/16/17 08:39 Dose: 100 mg - Labs Labs: 09/16/17 04:20 09/16/17 04:20 PT 10.8 Seconds (9.8-13.1) 09/15/17 14:45 INR 1.0 (0.9-1.2) 09/15/17 14:45 APTT 34.1 Seconds (25.6-37.1) 09/15/17 14:45
--- NOTE | 2017-09-16 10:30 | CP.CCUPN ---
<Felice Farris - Last Filed: 09/16/17 10:22> CCU Subjective - Physician Review Subjective (Free Text): 09/16/17 10:22 Patient seen and examined at bedside. Patient NAD, denies pain, has no complaints. Patient sitting up in bed comfortably and ate breakfast. Patient denies dizziness, headaches, tremors, chest pain, SOB, calf pain, abdominal pain , nausea, vomiting, or dysuria. Critical Care Time Spent (in minutes): 35 CCU Objective - Vital Signs / Intake & Output Vital Signs (Last 4 hours): Vital Signs Temp Pulse Resp BP Pulse Ox 09/16/17 08:00 97.7 F 74 16 133/68 96 Intake and Output (Last 8hrs): Intake & Output 09/15/17 09/16/17 09/16/17 22:59 06:59 14:59 Intake Total 200 675 450 Output Total 300 1800 620 Balance -100 -1125 -170 Weight 158 lb Intake: IV 100 675 150 Oral 100 0 300 Output: Urine 300 1800 620 Urine, Voided 300 1800 620 Other: # Voids Urine, Voided 1 - Physical Exam Head: Positive for: Normocephalic, Tenderness, Contusion, Other (L periorbital tenderness and swelling, echymosis; L scalp hematoma, tender, and echymosis). Negative for: Atraumatic Pupils: Positive for: PERRL Extroacular Muscles: Positive for: EOMI Conjunctiva: Positive for: Normal. Negative for: Injected, Icteric Ears: Positive for: Normal Neck: Positive for: Normal Range of Motion, Trachea Midline. Negative for: Meningeal Signs, MIDLINE TENDERNESS, Paraspinal Tenderness, JVD, Lymphadenopathy , Bruit, Other Respiratory/Chest: Positive for: Clear to Auscultation, Good Air Exchange. Negative for: Respiratory Distress, Accessory Muscle Use, Wheezes, Decreased Breath Sounds Cardiovascular: Positive for: Regular Rate and Rhythm, Normal S1, S2, Peripheal Pulses Present. Negative for: Murmurs, Irregular Rhythm, Tachycardic, Bradycardic Abdomen: Positive for: Normal Bowel Sounds. Negative for: Tenderness, Distention Upper Extremity: Positive for: Normal Inspection, Normal ROM, NORMAL PULSES, Capillary Refill < 2s. Negative for: Cyanosis, Edema Lower Extremity: Positive for: Normal Inspection, NORMAL PULSES. Negative for: Edema, CALF TENDERNESS, Cyanosis Neurological: Positive for: GCS=15, CN II-XII Intact, Speech Normal, Motor Func Grossly Intact, Normal Sensory Function Psychiatric: Positive for: Alert, Oriented x 3 - Medications Active Medications: Active Medications Generic Name Dose Route Start Last Admin Trade Name Freq PRN Reason Stop Dose Admin Thiamine HCl 100 mg 09/16/17 09:00 09/16/17 08:39 Vitamin B1 Tab PO 100 mg DAILY MELINA Administration - Patient Studies Lab Studies: Lab Studies 09/16/17 09/16/17 09/15/17 Range/Units 04:20 04:20 15:30 WBC 5.2 (4.8-10.8) K/uL RBC 4.13 L (4.40-5.90) Mil/uL Hgb 12.1 (12.0-18.0) g/dL Hct 35.9 (35.0-51.0) % MCV 86.9 (80.0-94.0) fl MCH 29.3 (27.0-31.0) pg MCHC 33.8 (33.0-37.0) g/dL RDW 13.0 (11.5-14.5) % Plt Count 183 (130-400) K/uL MPV 7.8 (7.2-11.7) fl Neut % (Auto) 58.9 (50.0-75.0) % Lymph % (Auto) 25.2 (20.0-40.0) % Hopkins % (Auto) 10.6 H (0.0-10.0) % Eos % (Auto) 4.3 H (0.0-4.0) % Baso % (Auto) 1.0 (0.0-2.0) % Neut # 3.1 (1.8-7.0) K/uL Lymph # 1.3 (1.0-4.3) K/uL Hopkins # 0.6 (0.0-0.8) K/uL Eos # 0.2 (0.0-0.7) K/uL Baso # 0.0 (0.0-0.2) K/uL PT (9.8-13.1) Seconds INR (0.9-1.2) APTT (25.6-37.1) Seconds Sodium 137 (132-148) mmol/l Potassium 3.9 (3.6-5.0) MMOL/L Chloride 102 (98-107) mmol/L Carbon Dioxide 29 (22-30) mmol/L Anion Gap 10 (10-20) BUN 23 H (9-20) mg/dl Creatinine 1.1 (0.8-1.5) mg/dL Est GFR ( Amer) > 60 Est GFR (Non-Af Amer) > 60 POC Glucose (mg/dL) 100 (65-110) mg/dL Random Glucose 76 (75-110) mg/dL Calcium 8.9 (8.4-10.2) mg/dL Total Bilirubin 0.7 (0.2-1.3) mg/dl AST 32 (17-59) U/L ALT 34 (21-72) U/L Alkaline Phosphatase 70 (38-126) U/L Troponin I (0.00-0.120) ng/mL Total Protein 5.8 L (6.3-8.2) G/DL Albumin 3.5 (3.5-5.0) g/dL Globulin 2.3 (2.2-3.9) gm/dL Albumin/Globulin Ratio 1.5 (1.0-2.1) Alcohol, Quantitative (0-10) mg/dl 09/15/17 09/15/17 09/15/17 Range/Units 14:45 14:45 14:45 WBC 4.8 (4.8-10.8) K/uL RBC 3.95 L (4.40-5.90) Mil/uL Hgb 11.6 L (12.0-18.0) g/dL Hct 34.8 L (35.0-51.0) % MCV 88.1 (80.0-94.0) fl MCH 29.3 (27.0-31.0) pg MCHC 33.2 (33.0-37.0) g/dL RDW 13.4 (11.5-14.5) % Plt Count 196 (130-400) K/uL MPV 7.7 (7.2-11.7) fl Neut % (Auto) 58.7 (50.0-75.0) % Lymph % (Auto) 24.6 (20.0-40.0) % Hopkins % (Auto) 11.9 H (0.0-10.0) % Eos % (Auto) 3.5 (0.0-4.0) % Baso % (Auto) 1.3 (0.0-2.0) % Neut # 2.8 (1.8-7.0) K/uL Lymph # 1.2 (1.0-4.3) K/uL Hopkins # 0.6 (0.0-0.8) K/uL Eos # 0.2 (0.0-0.7) K/uL Baso # 0.1 (0.0-0.2) K/uL PT 10.8 (9.8-13.1) Seconds INR 1.0 (0.9-1.2) APTT 34.1 (25.6-37.1) Seconds Sodium 137 (132-148) mmol/l Potassium 4.3 (3.6-5.0) MMOL/L Chloride 102 (98-107) mmol/L Carbon Dioxide 27 (22-30) mmol/L Anion Gap 12 (10-20) BUN 23 H (9-20) mg/dl Creatinine 1.2 (0.8-1.5) mg/dL Est GFR ( Amer) > 60 Est GFR (Non-Af Amer) 60 POC Glucose (mg/dL) (65-110) mg/dL Random Glucose 89 (75-110) mg/dL Calcium 8.5 (8.4-10.2) mg/dL Total Bilirubin 0.5 (0.2-1.3) mg/dl AST 34 (17-59) U/L ALT 35 (21-72) U/L Alkaline Phosphatase 76 (38-126) U/L Troponin I < 0.0120 (0.00-0.120) ng/mL Total Protein 6.0 L (6.3-8.2) G/DL Albumin 3.7 (3.5-5.0) g/dL Globulin 2.3 (2.2-3.9) gm/dL Albumin/Globulin Ratio 1.6 (1.0-2.1) Alcohol, Quantitative < 10 (0-10) mg/dl 09/15/ Range/Units 14:34 WBC (4.8-10.8) K/uL RBC (4.40-5.90) Mil/uL Hgb (12.0-18.0) g/dL Hct (35.0-51.0) % MCV (80.0-94.0) fl MCH (27.0-31.0) pg MCHC (33.0-37.0) g/dL RDW (11.5-14.5) % Plt Count (130-400) K/uL MPV (7.2-11.7) fl Neut % (Auto) (50.0-75.0) % Lymph % (Auto) (20.0-40.0) % Hopkins % (Auto) (0.0-10.0) % Eos % (Auto) (0.0-4.0) % Baso % (Auto) (0.0-2.0) % Neut # (1.8-7.0) K/uL Lymph # (1.0-4.3) K/uL Hopkins # (0.0-0.8) K/uL Eos # (0.0-0.7) K/uL Baso # (0.0-0.2) K/uL PT (9.8-13.1) Seconds INR (0.9-1.2) APTT (25.6-37.1) Seconds Sodium (132-148) mmol/l Potassium (3.6-5.0) MMOL/L Chloride (98-107) mmol/L Carbon Dioxide (22-30) mmol/L Anion Gap (10-20) BUN (9-20) mg/dl Creatinine (0.8-1.5) mg/dL Est GFR ( Amer) Est GFR (Non-Af Amer) POC Glucose (mg/dL) 97 (65-110) mg/dL Random Glucose (75-110) mg/dL Calcium (8.4-10.2) mg/dL Total Bilirubin (0.2-1.3) mg/dl AST (17-59) U/L ALT (21-72) U/L Alkaline Phosphatase (38-126) U/L Troponin I (0.00-0.120) ng/mL Total Protein (6.3-8.2) G/DL Albumin (3.5-5.0) g/dL Globulin (2.2-3.9) gm/dL Albumin/Globulin Ratio (1.0-2.1) Alcohol, Quantitative (0-10) mg/dl Laboratory Results - last 24 hr 09/15/17 09/15/17 09/15/17 14:34 14:45 14:45 WBC 4.8 RBC 3.95 L Hgb 11.6 L Hct 34.8 L MCV 88.1 MCH 29.3 MCHC 33.2 RDW 13.4 Plt Count 196 MPV 7.7 Neut % (Auto) 58.7 Lymph % (Auto) 24.6 Hopkins % (Auto) 11.9 H Eos % (Auto) 3.5 Baso % (Auto) 1.3 Neut # 2.8 Lymph # 1.2 Hopkins # 0.6 Eos # 0.2 Baso # 0.1 PT INR APTT Sodium 137 Potassium 4.3 Chloride 102 Carbon Dioxide 27 Anion Gap 12 BUN 23 H Creatinine 1.2 Est GFR ( Amer) > 60 Est GFR (Non-Af Amer) 60 POC Glucose (mg/dL) 97 Random Glucose 89 Calcium 8.5 Total Bilirubin 0.5 AST 34 ALT 35 Alkaline Phosphatase 76 Troponin I < 0.0120 Total Protein 6.0 L Albumin 3.7 Globulin 2.3 Albumin/Globulin Ratio 1.6 Alcohol, Quantitative < 10 09/15/17 09/15/17 09/16/17 14:45 15:30 04:20 WBC 5.2 RBC 4.13 L Hgb 12.1 Hct 35.9 MCV 86.9 MCH 29.3 MCHC 33.8 RDW 13.0 Plt Count 183 MPV 7.8 Neut % (Auto) 58.9 Lymph % (Auto) 25.2 Hopkins % (Auto) 10.6 H Eos % (Auto) 4.3 H Baso % (Auto) 1.0 Neut # 3.1 Lymph # 1.3 Hopkins # 0.6 Eos # 0.2 Baso # 0.0 PT 10.8 INR 1.0 APTT 34.1 Sodium Potassium Chloride Carbon Dioxide Anion Gap BUN Creatinine Est GFR ( Amer) Est GFR (Non-Af Amer) POC Glucose (mg/dL) 100 Random Glucose Calcium Total Bilirubin AST ALT Alkaline Phosphatase Troponin I Total Protein Albumin Globulin Albumin/Globulin Ratio Alcohol, Quantitative 09/16/17 04:20 WBC RBC Hgb Hct MCV MCH MCHC RDW Plt Count MPV Neut % (Auto) Lymph % (Auto) Hopkins % (Auto) Eos % (Auto) Baso % (Auto) Neut # Lymph # Hopkins # Eos # Baso # PT INR APTT Sodium 137 Potassium 3.9 Chloride 102 Carbon Dioxide 29 Anion Gap 10 BUN 23 H Creatinine 1.1 Est GFR ( Amer) > 60 Est GFR (Non-Af Amer) > 60 POC Glucose (mg/dL) Random Glucose 76 Calcium 8.9 Total Bilirubin 0.7 AST 32 ALT 34 Alkaline Phosphatase 70 Troponin I Total Protein 5.8 L Albumin 3.5 Globulin 2.3 Albumin/Globulin Ratio 1.5 Alcohol, Quantitative EKG/Cardiology Studies: Cardiology / EKG Studies 09/15/17 14:18 ELECTROCARDIOGRAM Stat Comment: Mode Of Transportation: Reason For Exam: needed Fingerstick Blood Sugar Results: 100 Review of Systems - Review of Systems All systems: reviewed and no additional remarkable complaints except - Constitutional Constitutional: absent: Chills, Weakness - EENT Eyes: absent: Change in Vision, Diplopia Ears: absent: Tinnitus - Cardiovascular Cardiovascular: absent: Chest Pain, Dyspnea, Palpitations - Respiratory Respiratory: absent: Dyspnea - Gastrointestinal Gastrointestinal: absent: Abdominal Pain, Nausea, Vomiting - Genitourinary Genitourinary: absent: Dysuria - Integumentary Integumentary: absent: Rash - Neurological Neurological: absent: Dizziness, Headaches, Tremor Critical Care Progress Note - Nutrition Nutrition: Nutrition Category Date Time Status Heart Healthy Diet [DIET] Diets 09/16/17 Breakfast Active Assessment/Plan - Assessment and Plan (Free Text) Assessment: 71 y/o man w/ pmh of HTN presents with dizziness. Patient in ICU for subdural hematoma and cerebral edema Plan: Head trauma - Patient had witnessed fall 09/12/2017 while getting up from chair and struck left side of face on table and then floor - Refused transport to medical facility at that time - Patient reported to ED 09/15/2017 for dizziness at urging of family member - Patient has multiple admissions for fall and previously seen right sided subdural hemtoma most recently measuring 6 mm in 06/2017 - cervical spine CT and maxillofacial CT showed no fracture or dislocation - Head CT showed subdural hematoma 7 mm on the right w/ regional mass effect but no midline shift or herniation - no surgical intervention at this time as per neurosurgery - follow up MRI brain w/o contrast - follow up EEG - Neuro surgery consult, Dr Queen, recommendations appreciated - Neurology consult, Dr. Oro, recommendations appreciated - Neuro checks Q2 - cardiac exercise physiologist - IVF NS @ 75 mL/Hr - thiamine 100 mg PO daily Diet - Heart healthy diet Prophylactic measures - SCDs, no anticoagulation due cerebral edema <Ramirez Lobato - Last Filed: 09/16/17 14:11> Assessment/Plan - Assessment and Plan (Free Text) Plan: Attestation: Patient seen and examined at the bedside with Resident Dr. Jeffry Farris; and I agree with his outline of plans and management as documented and discussed on AM rounds reflecting my review of all applicable clinical data, and participation in the care of the patient throughout the day in ICU; today, September 16, 2017.
--- NOTE | 2017-09-16 11:01 | MRI ---
PROCEDURE: MRI BRAIN WITHOUT CONTRAST HISTORY: [facility] COMPARISON: Noncontrast head CT from 09/15/2017. TECHNIQUE: Multiplanar, multisequence MR images of the brain were obtained without intravenous contrast enhancement. FINDINGS: HEMORRHAGE: There is redemonstration of an acute on subacute right convexity subdural hematoma measuring 9 mm in maximum width with mild local regional mass effect and mild effacement of the right cortical sulci without midline shift or herniation. DWI: No evidence of an acute or early subacute infarction. BRAIN PARENCHYMA: There is no mass or territorial infarction. There are mild chronic microangiopathic changes. The midline sagittal structures are normal. VENTRICLES: There is mild age-related global parenchymal volume loss and proportionate enlargement of the ventricles and cortical sulci. CRANIUM: There is normal bone marrow signal pattern. ORBITS: Grossly unremarkable. PARANASAL SINUSES/MASTOIDS: Predominantly clear. VASCULAR SYSTEM: There are normal signal voids in the larger intracranial arteries. OTHER FINDINGS: There is a small left frontal scalp hematoma. IMPRESSION: 1. Little interval change in known acute on subacute right convexity subdural hematoma measuring 9 mm in maximum width with mild mass effect without midline shift or herniation. No hydrocephalus. Small left frontal scalp hematoma. 2. Mild chronic microangiopathic changes and mild age-related global parenchymal volume loss.
--- NOTE | 2017-09-16 23:31 | PN ---
DATE: 09/16/2017 NEUROLOGIC PROBLEM: Posttraumatic subdural hematoma. PHYSICAL EXAMINATION: VITAL SIGNS: Blood pressure 150/86, mean arterial pressure 107, respiratory rate 16, temperature afebrile. NECK: Supple. Patient is up sitting in the chair, watching TV. Examination is grossly intact. No long tract sign. Examination is unchanged to compare with my yesterday's exam. No complaints of headache. Speech is clear with no visual disturbances. MRI of the brain reviewed, showed right subdural hematoma with the measurement of 9 to 10 mm without any pressure effect or mass effect noted to the right cerebral cortex. Small vessel disease also noted. Electroencephalogram showed bilateral slow activities, mostly the theta range without any paroxysmal activities or focal slowing noted. Patient could continue with the present management. No antiplatelet or thrombolytic agent for next 4 to 6 weeks. Patient should be followed by his primary care physician and followup MRI should be needed in the near future. Patient is also recommended to follow a neurologist. If medically stable, patient can be discharged tomorrow morning, he was pretty nice. Cortez Oro MD
[2017-09-17 05:01] LABS: HEMATOCRIT 36.3 % (35.0-51.0); MEAN CELL VOLUME 86.9 fl (80.0-94.0); MEAN CORPUSCULAR HEMOGLOBIN 29.1 pg (27.0-31.0); MEAN CORPUSCULAR HGB CONC 33.5 g/dL (33.0-37.0); WHITE BLOOD COUNT 4.9 K/uL (4.8-10.8)
[2017-09-17 05:17] LABS: BLOOD UREA NITROGEN 24 mg/dl (9-20); CARBON DIOXIDE 29 mmol/L (22-30); CHLORIDE 100 mmol/L (98-107); GFR AFRICAN-AMERICAN > 60; GLUCOSE,RANDOM 79 mg/dL (75-110); POTASSIUM 4.2 MMOL/L (3.6-5.0); SODIUM 134 mmol/l (132-148)
--- NOTE | 2017-09-17 14:40 | EEG ---
DATE: The resting electroencephalogram consists of 30 to 40 microvolts, diffuse high theta activity seen at parietal and occipital leads. Anteriorly, fast activity superimposed with 2 to 3 Hz delta activity seen at frontal and central leads. This activity is followed with high-amplitude delta activity seen, which is consistent with early drowsiness. IMPRESSION: This is a mildly abnormal electroencephalogram because of persistent slowing throughout the record suggestive of bilateral cerebral dysfunction. This is probably secondary to metabolic vascular degenerative process. Please correlate the finding with the neurological and radiological studies. Cortez Oro MD MTDD
--- NOTE | 2017-09-17 16:07 | CP.PCM.HP ---
Past Patient History - Infectious Disease Hx of Infectious Diseases: None - Past Medical History & Family History Past Medical History?: Yes - Past Social History Smoking Status: Former Smoker - CARDIAC Hx Cardiac Disorders: Yes Hx Hypertension: Yes - PULMONARY Hx Respiratory Disorders: Yes - NEUROLOGICAL Hx Neurological Disorder: Yes Hx Meningitis: Yes Hx Seizures: Yes - HEENT Hx HEENT Problems: No Hx Cataracts: Yes - RENAL Hx Chronic Kidney Disease: No - ENDOCRINE/METABOLIC Hx Endocrine Disorders: No - HEMATOLOGICAL/ONCOLOGICAL Hx Blood Disorders: No - INTEGUMENTARY Hx Dermatological Problems: No - MUSCULOSKELETAL/RHEUMATOLOGICAL Hx Musculoskeletal Disorders: Yes Hx Falls: Yes Hx Fractures: Yes - GASTROINTESTINAL Hx Gastrointestinal Disorders: No Other/Comment: Inguinal hernia as per pt - GENITOURINARY/GYNECOLOGICAL Hx Genitourinary Disorders: No - PSYCHIATRIC Hx Psychophysiologic Disorder: No Hx Substance Use: No - SURGICAL HISTORY Hx Surgeries: Yes Hx Orthopedic Surgery: Yes (LEFT SHOULDER) - ANESTHESIA Hx Anesthesia: Yes Hx Anesthesia Reactions: No Hx Malignant Hyperthermia: No Meds Allergies/Adverse Reactions: Allergies Allergy/AdvReac Type Severity Reaction Status Date / Time No Known Allergies Allergy Verified 06/30/17 20:02 Results - Vital Signs Recent Vital Signs: Last Vital Signs Temp 97.8 F 09/17/17 12:00 Pulse 67 09/17/17 14:00 Resp 15 09/17/17 14:00 BP 137/76 09/17/17 14:00 Pulse Ox 98 09/17/17 14:00 - Labs Result Diagrams: 09/17/17 04:20 09/17/17 04:20 Labs: Laboratory Results - last 24 hr 09/17/17 09/17/17 04:20 04:20 WBC 4.9 RBC 4.17 L Hgb 12.1 Hct 36.3 MCV 86.9 MCH 29.1 MCHC 33.5 RDW 13.0 Plt Count 203 Sodium 134 Potassium 4.2 Chloride 100 Carbon Dioxide 29 Anion Gap 10 BUN 24 H Creatinine 1.1 Est GFR ( Amer) > 60 Est GFR (Non-Af Amer) > 60 Random Glucose 79 Calcium 9.0
[2017-09-18] MEDS ORDERED: Dextrose 50% SYRINGE Inj (50 ml) IVP STA (08:26)
[2017-09-18] MEDS ORDERED: Dextrose 50% SYRINGE Inj (50 ml) ONE (08:28)
[2017-09-18] MEDS ORDERED: Dextrose 50% SYRINGE Inj (50 ml) IV ONE (08:45)
[2017-09-18] MEDS ORDERED: Propofol 10 mg/ml Inj (20 ML) IV ONE (08:47)
[2017-09-18] MEDS ORDERED: Propofol 10 mg/ml Inj (100 ml) IV SCH (09:00)
[2017-09-18] MEDS ORDERED: levETIRAcetam 1,000 MG in Sodium Chloride 0.9% 100 ML IVPB ONE (09:00)
[2017-09-18] MEDS ORDERED: levETIRAcetam 500 MG in Sodium Chloride 0.9% 100 ML IVPB ONE (09:00)
--- NOTE | 2017-09-18 09:30 | PCM.RRT ---
JIG INSPECTOR Nurse Assessment - Situation JIG INSPECTOR Responder Arrival Time: 08:25 JIG INSPECTOR Reason for Call: Change in Mental Status (seizure) JIG INSPECTOR Called By: RN - IV IV Inserted during JIG INSPECTOR?: No - Respiratory Oxygen Delivery Method: Nasal Cannula - Medication Medications Administered During JIG INSPECTOR: Ativan 8mg in total. Keppra 1000 mg started CPR started during JIG INSPECTOR?: No - Vital Signs Vital Signs: BP 210/76 HR 107 RR 16 O2 98 on NC - [place] Coma Scale Coma Scale Eye Opening: Spontaneous Coma Scale Motor: Movement to pain stimulus Coma Scale Verbal: Incomprehensible speech Coma Scale Total: 11 - Time JIG INSPECTOR Ended Time JIG INSPECTOR Ended: 08:50 - Vital Signs at end of JIG INSPECTOR Vital Signs at end of JIG INSPECTOR: BP 146/90 HR 113 RR 17 O2 97 on NC - Recommendations JIG INSPECTOR Level of Care Recommendations: Transfer to ICU I.Reason for JIG INSPECTOR - A) Acute Change in Patient: (Select all that apply): Staff member or family is worried about patient - Neurological Status (Select all that apply): Responsive (responds to verbal stimuli ) - Respiratory Oxygen Delivery Method: Nasal Cannula @L/min - Constitutional Appears: Unkempt Additional Comments: seen having a seizure - Head Head Exam: ATRAUMATIC, NORMAL INSPECTION - Eyes Additional Comments: start of JIG INSPECTOR, constricted but responds to light At the end of JIG INSPECTOR, eyes responsive and dilated - Respiratory Exam Respiratory Exam: Clear to Ausculation Bilateral, NORMAL BREATHING PATTERN. absent: Wheezes - Cardiovascular Exam Cardiovascular Exam: Tachycardia, REGULAR RHYTHM, +S1, +S2 - GI/Abdominal Exam GI & Abdominal Exam: Soft, Normal Bowel Sounds. absent: Tenderness - Neurological Exam Additional exam: decorticate movement in the RUE and then move to LUE. B/l Hand and leg movement noted - Extremities Exam Extremities Exam: Normal Inspection Plan - Assessment of Findings&Treatment Plan JIG INSPECTOR was called by the nurse when she witnessed pt having a seizure. JIG INSPECTOR team arrived, pt witnessed having a grand-mal seizure. Given 2mg of ativan initially , pt contined seizing. Pt continued to have a seizure for 20+ mins, given a total of 8mg of ativan and started keppra loading dose 1000. After the last administration of ativan, pt was noted to have stop seizing. He was able to maintain airway. Neurology consulted, told to start pt on loading dose of keppra. Pt was transferred to ICU for close monitoring. Status epileptics -pt given 8mg of ativan -keppra loading dose started -CT head w/o contrast ordered -will monitor airway -labs to be done in ICU -management per ICU
[2017-09-18] MEDS: Dextrose 5%/0.9% NS 1,000 ML IV SCH ×2 (10:02→16:40)
[2017-09-18 10:06] LABS: BASO # 0.1 K/uL (0.0-0.2); BASO % 0.9 % (0.0-2.0); EOS # 0.2 K/uL (0.0-0.7); EOS % 3.7 % (0.0-4.0); HEMATOCRIT 41.9 % (35.0-51.0); LYMPH # 1.9 K/uL (1.0-4.3); LYMPH % 33.4 % (20.0-40.0); MEAN CELL VOLUME 87.9 fl (80.0-94.0); MEAN CORPUSCULAR HEMOGLOBIN 29.3 pg (27.0-31.0); MEAN CORPUSCULAR HGB CONC 33.4 g/dL (33.0-37.0); MEAN PLATELET VOLUME 8.3 fl (7.2-11.7); MONO # 0.5 K/uL (0.0-0.8); MONO % 8.6 % (0.0-10.0); NEUT # 3.1 K/uL (1.8-7.0); NEUT % 53.4 % (50.0-75.0); NRBC % 0.2 % (0.0-0.0); RED CELL DISTRIBUTION WIDTH 13.4 % (11.5-14.5); WHITE BLOOD COUNT 5.7 K/uL (4.8-10.8)
[2017-09-18 10:42] LABS: ALB/GLOB RATIO 1.7 (1.0-2.1); ALKALINE PHOSPHATASE 82 U/L (38-126); ALT/SGPT 26 U/L (21-72); AST/SGOT 28 U/L (17-59); BILIRUBIN,TOTAL 0.5 mg/dl (0.2-1.3); BLOOD UREA NITROGEN 25 mg/dl (9-20); CALCIUM 8.8 mg/dL (8.4-10.2); CARBON DIOXIDE 19 mmol/L (22-30); CHLORIDE 97 mmol/L (98-107); GFR AFRICAN-AMERICAN > 60; GLUCOSE,RANDOM 191 mg/dL (75-110); MAGNESIUM 1.9 MG/DL (1.6-2.3); PHOSPHOROUS 3.1 mg/dl (2.5-4.5); SODIUM 133 mmol/l (132-148); TOTAL PROTEIN 6.6 G/DL (6.3-8.2)
--- NOTE | 2017-09-18 11:02 | CP.CCUPN ---
<Felice Farris - Last Filed: 09/18/17 10:55> CCU Subjective - Physician Review Subjective (Free Text): 09/18/17 10:55 Patient seen and examined at bedside. Patient returned to ICU from [facility] after DIRECTOR OF ANCILLARY SERVICES was called for grand-mal seizure. Patient continued to seize for 20+ minutes, consistent with status epilepticus. Patient was given a total of 8 mg ativan. Patient has airway protected w/ oropharyngeal airway, saturating at 96% . Patient has urinary incontinence. Patient to have repeat head CT w/o contrast Critical Care Time Spent (in minutes): 35 CCU Objective - Vital Signs / Intake & Output Vital Signs (Last 4 hours): Vital Signs Temp Pulse Resp BP Pulse Ox 09/18/17 10:01 114 H 21 127/85 97 09/18/17 08:50 114 H 16 130/84 96 09/18/17 08:32 97.3 F L 65 20 161/87 H 96 Intake and Output (Last 8hrs): Intake & Output 09/17/17 09/18/17 09/18/17 22:59 06:59 14:59 Intake Total 100 Output Total 300 Balance -300 100 Intake: Intake, Piggyback 100 Output: Urine 300 Urine, Voided 300 - Physical Exam Head: Positive for: Normocephalic, Tenderness, Contusion, Other (L periorbital tenderness and swelling, echymosis; L scalp hematoma, tender, and echymosis, improved from presentation). Negative for: Atraumatic Pupils: Positive for: PERRL Conjunctiva: Positive for: Normal. Negative for: Injected, Icteric Ears: Positive for: Normal Neck: Positive for: Normal Range of Motion, Trachea Midline. Negative for: Meningeal Signs, MIDLINE TENDERNESS, Paraspinal Tenderness, JVD, Lymphadenopathy , Bruit, Other Respiratory/Chest: Positive for: Clear to Auscultation, Good Air Exchange. Negative for: Respiratory Distress, Accessory Muscle Use, Wheezes, Decreased Breath Sounds Cardiovascular: Positive for: Normal S1, S2, Peripheal Pulses Present, Tachycardic. Negative for: Murmurs, Irregular Rhythm, Bradycardic Abdomen: Positive for: Normal Bowel Sounds. Negative for: Tenderness, Distention Upper Extremity: Positive for: Normal Inspection, NORMAL PULSES, Capillary Refill < 2s. Negative for: Cyanosis, Edema Lower Extremity: Positive for: Normal Inspection, NORMAL PULSES. Negative for: Edema, CALF TENDERNESS, Cyanosis Skin: Positive for: Warm, Dry - Medications Active Medications: Active Medications Generic Name Dose Route Start Last Admin Trade Name Adilson PRN Reason Stop Dose Admin Folic Acid 1 mg 09/18/17 09:00 09/18/17 10:04 Folic Acid PO Not Given DAILY MELINA Dextrose/Sodium Chloride 1,000 mls @ 125 mls/hr 09/18/17 09:00 09/18/17 10:02 Dextrose 5%/0.9% Ns 1000 Ml IV 09/19/17 08:47 125 mls/hr .Q8H MELINA Administration Propofol 1,000 mg 09/18/17 09:00 Diprivan IV .TITRATE MELINA Thiamine HCl 100 mg 09/16/17 09:00 09/18/17 10:05 Vitamin B1 Tab PO Not Given DAILY MELINA - Patient Studies Lab Studies: Microbiology Studies 09/15/17 19:53 MRSA Culture (Admit) - Final Naris MRSA NOT DETECTED Lab Studies 09/18/17 09/18/17 09/18/17 Range/Units 09:55 09:45 08:24 WBC 5.7 (4.8-10.8) K/uL RBC 4.77 (4.40-5.90) Mil/uL Hgb 14.0 (12.0-18.0) g/dL Hct 41.9 (35.0-51.0) % MCV 87.9 (80.0-94.0) fl MCH 29.3 (27.0-31.0) pg MCHC 33.4 (33.0-37.0) g/dL RDW 13.4 (11.5-14.5) % Plt Count 207 (130-400) K/uL MPV 8.3 (7.2-11.7) fl Neut % (Auto) 53.4 (50.0-75.0) % Lymph % (Auto) 33.4 (20.0-40.0) % [place] % (Auto) 8.6 (0.0-10.0) % Eos % (Auto) 3.7 (0.0-4.0) % Baso % (Auto) 0.9 (0.0-2.0) % Neut # 3.1 (1.8-7.0) K/uL Lymph # 1.9 (1.0-4.3) K/uL [place] # 0.5 (0.0-0.8) K/uL Eos # 0.2 (0.0-0.7) K/uL Baso # 0.1 (0.0-0.2) K/uL Sodium 133 (132-148) mmol/l Potassium 4.0 (3.6-5.0) MMOL/L Chloride 97 L (98-107) mmol/L Carbon Dioxide 19 L (22-30) mmol/L Anion Gap 21 H (10-20) BUN 25 H (9-20) mg/dl Creatinine 1.1 (0.8-1.5) mg/dL Est GFR ( Amer) > 60 Est GFR (Non-Af Amer) > 60 POC Glucose (mg/dL) 64 L (65-110) mg/dL Random Glucose 191 H (75-110) mg/dL Calcium 8.8 (8.4-10.2) mg/dL Phosphorus 3.1 (2.5-4.5) mg/dl Magnesium 1.9 (1.6-2.3) MG/DL Total Bilirubin 0.5 (0.2-1.3) mg/dl AST 28 (17-59) U/L ALT 26 (21-72) U/L Alkaline Phosphatase 82 (38-126) U/L Troponin I 0.0140 (0.00-0.120) ng/mL Total Protein 6.6 (6.3-8.2) G/DL Albumin 4.2 (3.5-5.0) g/dL Globulin 2.5 (2.2-3.9) gm/dL Albumin/Globulin Ratio 1.7 (1.0-2.1) 09/17/17 Range/Units 15:53 WBC (4.8-10.8) K/uL RBC (4.40-5.90) Mil/uL Hgb (12.0-18.0) g/dL Hct (35.0-51.0) % MCV (80.0-94.0) fl MCH (27.0-31.0) pg MCHC (33.0-37.0) g/dL RDW (11.5-14.5) % Plt Count (130-400) K/uL MPV (7.2-11.7) fl Neut % (Auto) (50.0-75.0) % Lymph % (Auto) (20.0-40.0) % [place] % (Auto) (0.0-10.0) % Eos % (Auto) (0.0-4.0) % Baso % (Auto) (0.0-2.0) % Neut # (1.8-7.0) K/uL Lymph # (1.0-4.3) K/uL [place] # (0.0-0.8) K/uL Eos # (0.0-0.7) K/uL Baso # (0.0-0.2) K/uL Sodium (132-148) mmol/l Potassium (3.6-5.0) MMOL/L Chloride (98-107) mmol/L Carbon Dioxide (22-30) mmol/L Anion Gap (10-20) BUN (9-20) mg/dl Creatinine (0.8-1.5) mg/dL Est GFR ( Amer) Est GFR (Non-Af Amer) POC Glucose (mg/dL) 79 (65-110) mg/dL Random Glucose (75-110) mg/dL Calcium (8.4-10.2) mg/dL Phosphorus (2.5-4.5) mg/dl Magnesium (1.6-2.3) MG/DL Total Bilirubin (0.2-1.3) mg/dl AST (17-59) U/L ALT (21-72) U/L Alkaline Phosphatase (38-126) U/L Troponin I (0.00-0.120) ng/mL Total Protein (6.3-8.2) G/DL Albumin (3.5-5.0) g/dL Globulin (2.2-3.9) gm/dL Albumin/Globulin Ratio (1.0-2.1) Laboratory Results - last 24 hr 09/17/17 09/18/17 09/18/17 15:53 08:24 09:45 WBC 5.7 RBC 4.77 Hgb 14.0 Hct 41.9 MCV 87.9 MCH 29.3 MCHC 33.4 RDW 13.4 Plt Count 207 MPV 8.3 Neut % (Auto) 53.4 Lymph % (Auto) 33.4 [place] % (Auto) 8.6 Eos % (Auto) 3.7 Baso % (Auto) 0.9 Neut # 3.1 Lymph # 1.9 [place] # 0.5 Eos # 0.2 Baso # 0.1 Sodium Potassium Chloride Carbon Dioxide Anion Gap BUN Creatinine Est GFR ( Amer) Est GFR (Non-Af Amer) POC Glucose (mg/dL) 79 64 L Random Glucose Calcium Phosphorus Magnesium Total Bilirubin AST ALT Alkaline Phosphatase Troponin I Total Protein Albumin Globulin Albumin/Globulin Ratio 09/18/17 09:55 WBC RBC Hgb Hct MCV MCH MCHC RDW Plt Count MPV Neut % (Auto) Lymph % (Auto) [place] % (Auto) Eos % (Auto) Baso % (Auto) Neut # Lymph # [place] # Eos # Baso # Sodium 133 Potassium 4.0 Chloride 97 L Carbon Dioxide 19 L Anion Gap 21 H BUN 25 H Creatinine 1.1 Est GFR ( Amer) > 60 Est GFR (Non-Af Amer) > 60 POC Glucose (mg/dL) Random Glucose 191 H Calcium 8.8 Phosphorus 3.1 Magnesium 1.9 Total Bilirubin 0.5 AST 28 ALT 26 Alkaline Phosphatase 82 Troponin I 0.0140 Total Protein 6.6 Albumin 4.2 Globulin 2.5 Albumin/Globulin Ratio 1.7 Fingerstick Blood Sugar Results: 100 Review of Systems - Review of Systems Systems not reviewed;Unavailable: Acuity of Condition (sedated from ativan given due to status epilepticus) Critical Care Progress Note - Nutrition Nutrition: Nutrition Category Date Time Status Heart Healthy Diet [DIET] Diets 09/16/17 Breakfast Active Assessment/Plan - Assessment and Plan (Free Text) Assessment: 71 y/o man w/ pmh of HTN presents with dizziness. Patient returned to ICU from [facility] for status epilepticus Plan: Status Epilepticus - Patient had DIRECTOR OF ANCILLARY SERVICES called this morning for grand-mal seizure lasting 20+ minutes - patient given a total of 8 mg of Ativan - patient airway patent and secured w/ oropharyngeal airway - O2 sat 96% - cardiac monitoring - CBC: 5.7>14.0/41.9<207 - CMP: 133/4.0, 97/19, 25/1.1, glucose 191, Ca2+ 8.8, phos 3.1, mag 1.9, AST 28 , ALT 26, alk phos 82, trop 0.0140 - given loading dose of keppra 1000 mg IV as per Dr. Oro - to continue w/ keppra 500 mg IV Q12 as per Dr. Oro - IVF D5-NS @ 125mL/hr - follow up coags - follow up repeat head CT w/o contrast - follow up neurosurgery and neurology recommendations Head trauma - Patient had witnessed fall 09/12/2017 while getting up from chair and struck left side of face on table and then floor - Refused transport to medical facility at that time - Patient reported to ED 09/15/2017 for dizziness at urging of family member - Patient has multiple admissions for fall and previously seen right sided subdural hemtoma most recently measuring 6 mm in 06/2017 - cervical spine CT and maxillofacial CT showed no fracture or dislocation - Head CT showed subdural hematoma 7 mm on the right w/ regional mass effect but no midline shift or herniation - no surgical intervention at the time as per neurosurgery - MRI brain w/o contrast 09/15/2017: subdural hematoma 9 mm w/ mild mass effect w/o midline shift of herniation, no hydrocephalus, small left frontal scalp hematoma - EEG 09/15/2017: mildly abnormal EEG, persistent slowing suggestive of bilateral cerebral dysfunction - Neuro surgery consult, Dr Queen, recommendations appreciated - Neurology consult, Dr. Oro, recommendations appreciated - thiamine 100 mg PO daily - folic acid 1 mg PO daily Diet - Heart healthy diet Prophylactic measures - SCDs, no anticoagulation due cerebral edema <Ramirez Lobato - Last Filed: 09/18/17 16:27> Assessment/Plan - Assessment and Plan (Free Text) Plan: Attestation: Patient seen and examined at the bedside with Resident Dr. Jeffry Farris; and I agree with his outline of plans and management as documented and discussed on AM rounds reflecting my review of all applicable clinical data, and participation in the care of the patient throughout the day in ICU; today, September 18, 2017.
--- NOTE | 2017-09-18 11:35 | CT ---
PROCEDURE: CT HEAD WITHOUT CONTRAST. 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 TECHNIQUE: Axial computed tomography images were obtained through the head/brain without intravenous contrast. Radiation dose: Total exam DLP = 1160.78 mGy-cm. This CT exam was performed using one or more of the following dose reduction techniques: Automated exposure control, adjustment of the mA and/or kV according to patient size, and/or use of iterative reconstruction technique. FINDINGS: HEMORRHAGE: There is acute right frontoparietal convexity subdural hemorrhage. As measured from the coronal reformatted images, this measures 8-9 mm in maximal width, unchanged from the prior examination. There is no new hemorrhage appreciated. There is no intraventricular hemorrhage. There is no parenchymal hemorrhage. There is mild effacement of the sulci subjacent to the acute subdural hemorrhage. BRAIN: No mass effect or edema. No atrophy or chronic microvascular ischemic changes. VENTRICLES: No hydrocephalus. No midline shift. No downward herniation. CALVARIUM: No calvarial fracture. Left frontal scalp hematoma. PARANASAL SINUSES: Unremarkable as visualized. No significant inflammatory changes. MASTOID AIR CELLS: Unremarkable as visualized. No inflammatory changes. OTHER FINDINGS: None. IMPRESSION: Stable right frontoparietal convexity acute subdural hemorrhage. No midline shift or downward herniation.
[2017-09-18 15:21] LABS: PARTIAL THROMBOPLASTIN TIME 34.8 Seconds (25.6-37.1)
[2017-09-18] MEDS: levETIRAcetam 500 MG in Sodium Chloride 0.9% 100 ML IVPB SCH (21:01)
--- NOTE | 2017-09-18 23:55 | CP.PCM.PN ---
Subjective - Date & Time of Evaluation Date of Evaluation: 09/17/17 Time of Evaluation: 23:00 Objective - Vital Signs/Intake and Output Vital Signs (last 24 hours): Temp Pulse Resp BP Pulse Ox 99.3 F 87 18 134/84 100 09/18/17 20:00 09/18/17 20:00 09/18/17 20:00 09/18/17 20:00 09/18/17 20:00 Intake and Output: 09/18/17 09/19/17 18:59 06:59 Intake Total 1225 125 Output Total 100 Balance 1125 125 - Medications Medications: Current Medications Folic Acid (Folic Acid) 1 mg PO DAILY [facility] Last Admin: 09/18/17 10:04 Dose: Not Given Dextrose/Sodium Chloride (Dextrose 5%/0.9% Ns 1000 Ml) 1,000 mls @ 125 mls/hr IV .Q8H [facility] Stop: 09/19/17 08:47 Last Admin: 09/18/17 16:40 Dose: 125 mls/hr Levetiracetam 500 mg/ Sodium (Chloride) 105 mls @ 210 mls/hr IVPB Q12 [facility] Last Admin: 09/18/17 21:01 Dose: 210 mls/hr Propofol (Diprivan) 1,000 mg IV .TITRATE [facility] Thiamine HCl (Vitamin B1 Tab) 100 mg PO DAILY [facility] Last Admin: 09/18/17 10:05 Dose: Not Given - Labs Labs: 09/18/17 09:45 09/18/17 09:55 PT 11.0 Seconds (9.8-13.1) 09/18/17 14:50 INR 1.0 (0.9-1.2) 09/18/17 14:50 APTT 34.8 Seconds (25.6-37.1) 09/18/17 14:50
--- NOTE | 2017-09-18 23:57 | CP.PCM.PN ---
Subjective - Date & Time of Evaluation Date of Evaluation: 09/18/17 Time of Evaluation: 23:15 Objective - Vital Signs/Intake and Output Vital Signs (last 24 hours): Temp Pulse Resp BP Pulse Ox 99.3 F 87 18 134/84 100 09/18/17 20:00 09/18/17 20:00 09/18/17 20:00 09/18/17 20:00 09/18/17 20:00 Intake and Output: 09/18/17 09/19/17 18:59 06:59 Intake Total 1225 125 Output Total 100 Balance 1125 125 - Medications Medications: Current Medications Folic Acid (Folic Acid) 1 mg PO DAILY [facility] Last Admin: 09/18/17 10:04 Dose: Not Given Dextrose/Sodium Chloride (Dextrose 5%/0.9% Ns 1000 Ml) 1,000 mls @ 125 mls/hr IV .Q8H [facility] Stop: 09/19/17 08:47 Last Admin: 09/18/17 16:40 Dose: 125 mls/hr Levetiracetam 500 mg/ Sodium (Chloride) 105 mls @ 210 mls/hr IVPB Q12 [facility] Last Admin: 09/18/17 21:01 Dose: 210 mls/hr Propofol (Diprivan) 1,000 mg IV .TITRATE [facility] Thiamine HCl (Vitamin B1 Tab) 100 mg PO DAILY [facility] Last Admin: 09/18/17 10:05 Dose: Not Given - Labs Labs: 09/18/17 09:45 09/18/17 09:55 PT 11.0 Seconds (9.8-13.1) 09/18/17 14:50 INR 1.0 (0.9-1.2) 09/18/17 14:50 APTT 34.8 Seconds (25.6-37.1) 09/18/17 14:50
[2017-09-19] MEDS: Dextrose 5%/0.9% NS 1,000 ML IV SCH (01:00)
--- NOTE | 2017-09-19 01:41 | PN ---
PHYSICAL EXAMINATION VITAL SIGNS: Blood pressure 134/84, mean arterial pressure of 100, respiratory rate 18, temperature afebrile, pulse rate 87 and regular. EVENTS TO BE NOTED: The patient did have witnessed seizure activities. The patient was brought in to ICU. The patient was given Keppra as directed. At present, the patient is sleepy, easily arousable on calling his name and moves all 4 extremities. He knows he is in the hospital. ASSESSMENT AND PLAN: Considering his history of seizure disorder and subdural hematoma, the patient should be on antiepileptic drug for now. Electroencephalogram should be done to assess his electrographic activities and electrographic seizures. The patient can be get out of the bed tomorrow and physical therapy to be started. Continue the rest of the management. Cortez Oro MD
[2017-09-19 06:35] LABS: BASO % 0.6 % (0.0-2.0); EOS # 0.1 K/uL (0.0-0.7); EOS % 2.2 % (0.0-4.0); HEMATOCRIT 36.3 % (35.0-51.0); LYMPH # 0.8 K/uL (1.0-4.3); MEAN CELL VOLUME 86.7 fl (80.0-94.0); MEAN CORPUSCULAR HEMOGLOBIN 29.5 pg (27.0-31.0); MEAN PLATELET VOLUME 8.1 fl (7.2-11.7); MONO # 0.6 K/uL (0.0-0.8); MONO % 8.2 % (0.0-10.0); NEUT # 5.2 K/uL (1.8-7.0); NRBC % 0.1 % (0.0-0.0); WHITE BLOOD COUNT 6.8 K/uL (4.8-10.8)
[2017-09-19 06:53] LABS: ALB/GLOB RATIO 1.4 (1.0-2.1); ALKALINE PHOSPHATASE 73 U/L (38-126); ALT/SGPT 32 U/L (21-72); AST/SGOT 20 U/L (17-59); BILIRUBIN,TOTAL 0.5 mg/dl (0.2-1.3); BLOOD UREA NITROGEN 15 mg/dl (9-20); CALCIUM 8.6 mg/dL (8.4-10.2); CARBON DIOXIDE 27 mmol/L (22-30); CHLORIDE 99 mmol/L (98-107); GFR AFRICAN-AMERICAN > 60; GLUCOSE,RANDOM 87 mg/dL (75-110); POTASSIUM 3.7 MMOL/L (3.6-5.0); SODIUM 135 mmol/l (132-148); TOTAL PROTEIN 5.8 G/DL (6.3-8.2)
[2017-09-19] MEDS: levETIRAcetam 500 MG in Sodium Chloride 0.9% 100 ML IVPB SCH ×2 (08:46→21:13)
--- NOTE | 2017-09-19 20:12 | PN ---
DATE: 09/19/2017 CRITICAL CARE PROGRESS NOTE LOCATION: Patient in ICU, bed 422. TIME SPENT: 35 minutes. SUBJECTIVE: Patient is seen and examined at the bed side. Events since admission reviewed. Past medical, surgical, and social history noted. A 71-year-old male with history significant for hypertension, degenerative arthritis, admitted through the emergency room on 09/15/2017, status post fall at home with sustained subdural hematoma about 7 mm, seen by Neurosurgery consult. No surgical intervention recommended. Readmitted to ICU status post [employer] SOFTWARE [employer] for a generalized tonic clonic seizure. Repeat CT head obtained and showed no new changes. Overnight, remains normotensive, afebrile. No headache. No further seizure. Denies chest pain, palpitation. No abdominal discomfort or diarrhea. No dysuria. PHYSICAL EXAMINATION: VITAL SIGNS: Temperature 99; blood pressure 129/63; mean arterial pressure 85; respiratory rate 12-18, thoracoabdominal; saturating 95%-100% on oxygen 2 liters nasal cannula. Intake 2600, output 300. Positive balance 2300. Weight 158 pounds. HEAD, EYES, EARS, NOSE, AND THROAT: Pupils reactive. Conjunctivae pink. Sclerae white. Left periorbital tenderness and swelling, ecchymosis. Left scalp hematoma mildly tender and erythematosus. NECK: Supple. Trachea central. CHEST: Bilateral breath sounds, clear to auscultation. HEART: Rhythm regular. S1, S2 normal. No audible murmur. ABDOMEN: Bowel sounds are present. Soft. Liver and spleen not palpable. Bladder not distended. EXTREMITIES: No clubbing, cyanosis, or edema. NEUROLOGIC: Nonfocal. LABORATORY DATA: WBC 6.8, hemoglobin 12.3, hematocrit 36.3, platelet count 198, neutrophils 77, lymphocytes 12, monocytes 8.2. PT 11, INR 1, PTT 34.8. SMA-7; sodium 135, potassium 3.7, chloride 99, CO2 of 27, blood urea nitrogen 15, creatinine 0.8, random glucose 87. Calcium 8.6, total bilirubin 0.5, AST 20, ALT 32, alkaline phosphatase 73, total protein 5.8, albumin 3.4, AG ratio 1.4. Alcohol level less than 10. CURRENT MEDICATIONS: Folic acid 1 mg daily, Keppra 500 mg IV q. 12, vitamin B1 100 mg p.o. daily. IMPRESSION: 1. Neurologic: Subdural hematoma, status post _ fall, no change in the repeat CT head, seen by Neurosurgery consult. Seizure, generalized tonic, on Keppra 500 mg q.12 hours, remains seizure free. No electrolyte abnormalities. 2. Cardiac: Hypertension, remains controlled except for normal to high systolic blood pressure, continue to monitor, 2 g sodium diet. 3. Pulmonary: No acute issues. 4. Renal: No acute issues. 5. Endocrine: Maintain blood sugar less than 180 mg. 6. Hematology: No leukocytosis. Hemoglobin stable. 7. Skin: With periorbital tenderness and abrasion left side of the face. Closely monitor for further episode of seizure, continue deep venous thrombosis and gastrointestinal prophylaxis. Abner Levin MD MTDD
--- NOTE | 2017-09-19 23:08 | CP.PCM.PN ---
Subjective - Date & Time of Evaluation Date of Evaluation: 09/19/17 Time of Evaluation: 23:10 Objective - Vital Signs/Intake and Output Vital Signs (last 24 hours): Temp Pulse Resp BP Pulse Ox 97.6 F 70 20 112/67 97 09/19/17 20:44 09/19/17 20:44 09/19/17 20:44 09/19/17 20:44 09/19/17 20:44 Intake and Output: 09/19/17 09/20/17 18:59 06:59 Intake Total 1600 Output Total 800 Balance 800 - Medications Medications: Current Medications Folic Acid (Folic Acid) 1 mg PO DAILY [facility] Last Admin: 09/19/17 08:45 Dose: 1 mg Levetiracetam 500 mg/ Sodium (Chloride) 105 mls @ 210 mls/hr IVPB Q12 [facility] Last Admin: 09/19/17 21:13 Dose: 210 mls/hr Propofol (Diprivan) 1,000 mg IV .TITRATE [facility] Thiamine HCl (Vitamin B1 Tab) 100 mg PO DAILY [facility] Last Admin: 09/19/17 08:46 Dose: 100 mg - Labs Labs: 09/19/17 05:30 09/19/17 05:30 PT 11.0 Seconds (9.8-13.1) 09/18/17 14:50 INR 1.0 (0.9-1.2) 09/18/17 14:50 APTT 34.8 Seconds (25.6-37.1) 09/18/17 14:50
[2017-09-20] MEDS: levETIRAcetam 500 MG in Sodium Chloride 0.9% 100 ML IVPB SCH ×2 (09:13→20:54)
[2017-09-21] MEDS: levETIRAcetam 500 MG in Sodium Chloride 0.9% 100 ML IVPB SCH (08:34)
--- NOTE | 2017-09-21 23:26 | PN ---
NEUROLOGICAL PROBLEM: Subdural hematoma with seizures. PHYSICAL EXAMINATION: VITAL SIGNS: Blood pressure 146/79, mean arterial pressure of 101, respiratory rate 16, temperature 97.8, pulse rate 61, regular. GENERAL: Patient is comfortably lying down in the bed, no new complaints. Patient is seizure free since he was started on Keppra. He has been getting 500 mg twice a day that can be changed to p.o. now. Patient is neurologically stable and Keppra should be continued. Followup MRI can be done either in 3 months or 6 months interval period depending on his presentation. Patient will be followed while he is in the hospital if it is necessary; otherwise, neurologically, patient is cleared from followup evaluation. Cortez Oro MD
--- NOTE | 2017-09-22 09:18 | RAD ---
PROCEDURE: Right Hip Radiographs. HISTORY: Right Hip pain and Limitted ROM COMPARISON: None. FINDINGS: BONES: The pelvic ring is intact. There is diffuse bone demineralization. There is no acute displaced fracture or bone destruction. JOINTS: Normal. SOFT TISSUES: Normal. OTHER FINDINGS: There are atherosclerotic vascular calcifications. IMPRESSION: No acute displaced fracture or dislocation.Please note occult fractures cannot be excluded on plain radiographs. If there is a persistent clinical concern, an MRI of the hip may be performed for further evaluation.
[2017-09-23 07:43] VITALS: BP 160/77; PULSE 62; RESP 20; TEMP 97.8; O2SAT 99
--- NOTE | 2017-09-23 08:47 | MRI ---
MRI right hip History: Hip pain. Fall. Comparison: None available. Technique: Multi-echo multiplanar sequences were performed through the right hip without the use of intravenous contrast. Findings: Right hip: Heterogeneity of the visualized marrow with patchy decreased T1 signal suggestive for hematopoietic marrow reconversion. Right iliopsoas and rectus femorals tendon attachments appear preserved. Prominent high-grade partial tearing along the distal right gluteus minimus tendon consistent with a high-grade tear. Additionally increased signal in a portion of the gluteus medius tendon insertion also consistent with a partial tear. Curvilinear increased fluid intensity signal seen lateral to the right greater trochanter consistent with associated greater trochanteric bursitis. Mild patchy reactive bone marrow edema seen along the anterior aspect of the greater tuberosity near its interface with the base of the lateral right femoral neck, nonspecific, possibly related to mild bone bruising. Small right hip joint effusion. Moderate narrowing of the superior aspect of the right hip joint space with some cartilage fibrillation. Moderate insertional tendinopathy of the right hamstring tendon origins. Fraying with increased signal at the undersurface of the right anterior acetabular labrum suggestive for partial tearing. Degenerative changes in the lower lumbar spine with some mild reactive edema at the L5-S1 disc space. Limited evaluation of the remainder of the bony pelvis demonstrates degenerative changes at the level of the left hip joint space with joint space narrowing and cartilage thinning. Small left hip joint effusion. Mild left greater trochanteric bursitis. Moderate insertional tendinopathy of the left gluteus tendon attachments on the greater trochanter. Hyperintense edematous signal within the lateral pelvic subcutaneous fat that appears fairly symmetric bilaterally. Prominent tubular structures along the left spermatic cord, possibly reflecting a varicocele. Impression: 1. Prominent high-grade partial tearing along the distal right gluteus minimus tendon consistent with a high-grade tear. Additionally increased signal in a portion of the gluteus medius tendon insertion also consistent with a partial tear. 2. Curvilinear increased fluid intensity signal seen lateral to the right greater trochanter consistent with associated greater trochanteric bursitis. 3. Mild patchy reactive bone marrow edema seen along the anterior aspect of the greater tuberosity near its interface with the base of the lateral right femoral neck, nonspecific, possibly related to mild bone bruising. Clinical correlation. 4. Small right hip joint effusion. 5. Moderate narrowing of the superior aspect of the right hip joint space with some cartilage fibrillation. 6. Moderate insertional tendinopathy of the right hamstring tendon origins. 7. Fraying with increased signal at the undersurface of the right anterior acetabular labrum suggestive for partial tearing. 8. Degenerative changes in the lower lumbar spine with some mild reactive edema at the L5-S1 disc space. 9. Limited evaluation of the remainder of the bony pelvis demonstrates degenerative changes at the level of the left hip joint space with joint space narrowing and cartilage thinning. Small left hip joint effusion. Mild left greater trochanteric bursitis. Moderate insertional tendinopathy of the left gluteus tendon attachments on the greater trochanter. 10. Hyperintense edematous signal within the lateral pelvic subcutaneous fat that appears fairly symmetric bilaterally. 11. Prominent tubular structures along the left spermatic cord, possibly reflecting a varicocele. 12. Heterogeneity of the visualized marrow with patchy decreased T1 signal suggestive for hematopoietic marrow reconversion. These findings were preliminarily reported at 9:21 p.m. on 09/22/[address] Elliott Christianson from [facility].
--- NOTE | 2017-09-23 13:59 | CP.PCM.CON ---
History of Present Illness - History of Present Illness History of Present Illness: 71 yo M with several comorbidities including chronic low back pain, epilepsy, and hypertension, admitted for subdural hematoma and seizure c/o right hip pain. MRI and xrays of right hip were completed. Orhtopaedics was consulted for further evaluation and treatment of right hip pain. Pt states he has a h/o of right hip pain, for which he was undergoing physical therapy treatment. However , the pain has become progressively worse over the last 2 wks. Pt states he normally ambulates with a cane for assistance. He states the pain is mostly in his groin area, comes and goes. Currently the pain is not severe. He denies any numbness/tingling RLE. He denies any problems with bladder or bowel function. Review of Systems - Musculoskeletal Musculoskeletal: As Per HPI Past Patient History - Infectious Disease Hx of Infectious Diseases: None - Past Medical History & Family History Past Medical History?: Yes - Past Social History Smoking Status: Former Smoker - CARDIAC Hx Cardiac Disorders: Yes Hx Hypertension: Yes - PULMONARY Hx Respiratory Disorders: Yes - NEUROLOGICAL Hx Neurological Disorder: Yes Hx Meningitis: Yes Hx Seizures: Yes - HEENT Hx HEENT Problems: No Hx Cataracts: Yes - RENAL Hx Chronic Kidney Disease: No - ENDOCRINE/METABOLIC Hx Endocrine Disorders: No - HEMATOLOGICAL/ONCOLOGICAL Hx Blood Disorders: No - INTEGUMENTARY Hx Dermatological Problems: No - MUSCULOSKELETAL/RHEUMATOLOGICAL Hx Musculoskeletal Disorders: Yes Hx Falls: Yes Hx Fractures: Yes - GASTROINTESTINAL Hx Gastrointestinal Disorders: No Other/Comment: Inguinal hernia as per pt - GENITOURINARY/GYNECOLOGICAL Hx Genitourinary Disorders: No - PSYCHIATRIC Hx Psychophysiologic Disorder: No Hx Substance Use: No - SURGICAL HISTORY Hx Surgeries: Yes Hx Orthopedic Surgery: Yes (LEFT SHOULDER) - ANESTHESIA Hx Anesthesia: Yes Hx Anesthesia Reactions: No Hx Malignant Hyperthermia: No Meds Home Medications: Home Medication List Medication Instructions Recorded Confirmed Type Thiamine [Vitamin B1 Tab] 100 mg PO DAILY #30 tab 09/22/17 Rx levETIRAcetam [Keppra] 500 mg PO BID #60 tab 09/22/17 Rx Allergies/Adverse Reactions: Allergies Allergy/AdvReac Type Severity Reaction Status Date / Time No Known Allergies Allergy Verified 06/30/17 20:02 - Medications Medications: Current Medications Acetaminophen (Tylenol 325mg Tab) 650 mg PO Q6 PRN PRN Reason: Pain, moderate (4-7) Last Admin: 09/20/17 21:15 Dose: 650 mg Famotidine (Pepcid) 40 mg PO DAILY [facility] Last Admin: 09/23/17 09:33 Dose: 40 mg Folic Acid (Folic Acid) 1 mg PO DAILY [facility] Last Admin: 09/23/17 09:32 Dose: 1 mg Levetiracetam (Keppra) 500 mg PO BID [facility] Last Admin: 09/23/17 09:32 Dose: 500 mg Propofol (Diprivan) 1,000 mg IV .TITRATE [facility] Thiamine HCl (Vitamin B1 Tab) 100 mg PO DAILY [facility] Last Admin: 09/23/17 09:33 Dose: 100 mg Physical Exam - Constitutional Appears: No Acute Distress - Extremities Exam Additional comments: Right hip: +antalgic gait in right +mild ttp in groin area and over greater trochanter ROM: flexion 100deg Int rot 20deg, ext rot 35deg Abduction 45deg, adduction 30deg +bhaivk test, +fadir test N/V intact distally Calves soft and nontender b/l Distal pulses wnl Results - Vital Signs Recent Vital Signs: Last Vital Signs Temp 97.8 F 09/23/17 07:42 Pulse 62 09/23/17 07:42 Resp 20 09/23/17 07:42 BP 160/77 H 09/23/17 07:42 Pulse Ox 99 09/23/17 07:42 - Labs Result Diagrams: 09/19/17 05:30 09/19/17 05:30 - Imaging and Cardiology mri hip Status: Image reviewed by me, Report reviewed by me Additional comment: Right hip and MRI images reviewed by Sonny Lincoln and OSKAR Matthew Xrays are neg for any fracture or dislocations MRI w/o contrast of right hip reveals high grade partial gluteus minimus tendon tear; partial gluteus medius tea; greater trochanteric bursitis Assessment & Plan - Assessment and Plan (Free Text) Assessment: 71 yo M with several comorbidities presents with right hip high grade partial gluteus minimus tear, partial gluteus medius tear, greater trochanteric bursitis Plan: Pain Control Start PT WBAT RLE Pt can follow up as outpatient for further evaluation and treatment
--- NOTE | 2017-09-23 14:40 | CP.PCM.PCO ---
Assessment/Plan - Assessment/Plan Assessment (Free Text): Pt stable, aaox3. Respirations unlabored, lungs clear, heart S1S2, abdomen soft , non tender. Pt seen by ortho and cleared for d/c home with outpatient follow up with Dr. Lincoln. Pt cleared for d/c home by Dr. Malone. Rx given for Keppra and thiamine. Pt to continue home meds as per med rec. Pt to f/u with Dr. Malone in 1 week. Pt and RN aware of plan.
== END 2017-09-23 15:35 | disposition home or self-care (01) | DRG 87 ==
LOC: H.ER 13:01 → H.ERHOLD 16:28 → H.ICU/CCU 17:40 → H.MEDSURG1 09-17 16:25 → H.ICU/CCU 09-18 08:57 → H.MEDSURG1 09-19 20:38
PROVIDERS: ADMIT Internal Medicine; ATTEND Internal Medicine
DX: S06.5X1A Traumatic subdural hemorrhage with loss of consciousness of 30 minutes or less, initial encounter (principal); G40.901 Epilepsy, unspecified, not intractable, with status epilepticus; I10 Essential (primary) hypertension; W07.XXXA Fall from chair, initial encounter; Y93.9 Activity, unspecified; Y92.9 Unspecified place or not applicable; M19.90 Unspecified osteoarthritis, unspecified site; Z87.891 Personal history of nicotine dependence; G89.29 Other chronic pain; R32 Unspecified urinary incontinence; M70.61 Trochanteric bursitis, right hip; S76.011A Strain of muscle, fascia and tendon of right hip, initial encounter

== ENCOUNTER 2018-06-05 09:55 | Inpatient (IN) | payer MEDICARE, OTHER ==
[2018-06-05 10:04] VITALS: BMI 24.5
--- NOTE | 2018-06-05 10:57 | ED PDOC ---
Syncope/Near Syncope/Dizziness Time Seen by Provider: 06/05/18 10:38 Chief Complaint (Nursing): Syncope Chief Complaint (Provider): Syncope History Per: Patient History/Exam Limitations: no limitations Onset/Duration Of Symptoms: Mins Current Symptoms Are (Timing): Still Present Severity: Mild Additional History Per: Patient Additional Complaint(s): 71 y/o male presents to the ED with syncope while at a local store prior to ED arrival. Patient states he felt mild diffuse headache and persistent dizziness/ lightheadedness and passed out at the counter of the store. Patient believes he was caught by store retail center receptionist prior to fall. Denies falling to the ground. Patient describes extensive sweating during syncopal episode. Patient subsequently arrived to the ED for further eval. Denies chest pain/palpitations/shortness of breath Denies fever/chills Denies abdominal pain/nausea/vomiting Denies speech change Denies numbness/tingling/focal weakness pt denied other complaints pt is here for further eval. Patient has a PMHx of seizures and takes Keppra 500 mg BID. However, patient states it does not feel like a seizure episode and is here for further evaluation. PMD: Dr. Johnny Lombardo Patient just had bilateral eye surgery for cataracts. The last eye surgery was performed yesterday. Patient was due for follow up today. Additionally, patient is right hand dominant. Patient also stopped smoking and drinking 5-6 years ago. Past Medical History Reviewed: Historical Data, Nursing Documentation, Vital Signs Vital Signs: Last Vital Signs Temp 97.1 F L 06/05/18 10:03 Pulse 73 06/05/18 10:03 Resp BP 157/71 H 06/05/18 10:03 Pulse Ox 96 06/05/18 10:03 - Medical History PMH: Arthritis, Fractures, HTN, Hypercholesterolemia, Seizures Denies: HIV, Chronic Kidney Disease - Surgical History Surgical History: No Surg Hx - Family History Family History: States: Unknown Family Hx - Living Arrangements Living Arrangements: Alone - Social History Ex-Smoker (has not smoked in the last 12 months): Yes Alcohol: None Drugs: Denies - Immunization History Hx Tetanus Toxoid Vaccination: No Hx Influenza Vaccination: Yes Hx Pneumococcal Vaccination: No - Home Medications Home Medications: Ambulatory Orders Medication Instructions Recorded Folic Acid 1 mg PO DAILY 09/15/17 Multivitamin [Multi-Vitamin Daily] 1 tab PO DAILY 09/15/17 Pravastatin Sodium [Pravachol] 40 mg PO DAILY 09/15/17 Thiamine [Vitamin B1 Tab] 100 mg PO DAILY #30 tab 09/22/17 levETIRAcetam [Keppra] 500 mg PO BID #60 tab 09/22/17 traMADol [Ultram] 50 mg PO Q6H PRN #20 tab 04/07/18 - Allergies Allergies/Adverse Reactions: Allergies Allergy/AdvReac Type Severity Reaction Status Date / Time No Known Allergies Allergy Verified 05/15/18 23:05 Review of Systems ROS Statement: Except As Marked, All Systems Reviewed And Found Negative Constitutional: Negative for: Fever, Chills Eyes: Negative for: Pain ENT: Negative for: Ear Pain Cardiovascular: Negative for: Chest Pain, Palpitations Respiratory: Negative for: Shortness of Breath Gastrointestinal: Negative for: Nausea, Vomiting, Abdominal Pain Genitourinary Male: Negative for: Dysuria Musculoskeletal: Negative for: Neck Pain Skin: Negative for: Rash Neurological: Positive for: Headache (mild, diffuse), Dizziness (persistent dizziness/lightheadedness ), Other (syncope). Negative for: Numbness (or tingling), Change in Speech (or focal weakness) Psych: Negative for: Anxiety Physical Exam - Reviewed Nursing Documentation Reviewed: Yes Vital Signs Reviewed: Yes (mildly elevated BP) - Physical Exam Appears: Positive for: Well, Non-toxic, No Acute Distress (alert/awake, GCS = 15 , oriented x 3, mildly uncomfortable, NAD; follows command with ease, interactive) Head Exam: Positive for: ATRAUMATIC, NORMAL INSPECTION, NORMOCEPHALIC Skin: Positive for: Normal Color (cap refill < 1sec, no ulcerations, no petechiae, no rashes/pallor), Warm, Dry. Negative for: Rash Eye Exam: Positive for: Normal appearance, EOMI, PERRL, Other (wearing eye patch /covering device over left eye (s/p surgery yesterday); right eye pupils reactive to light; visual field intact, no photophobia, sclera anicteric) Neck: Positive for: Normal, Painless ROM, Supple, Trachea Midline. Negative for : Decreased ROM Cardiovascular/Chest: Positive for: Regular Rate, Rhythm, Chest Non Tender. Negative for: Murmur Respiratory: Positive for: Normal Breath Sounds. Negative for: Respiratory Distress Gastrointestinal/Abdominal: Positive for: Normal Exam, Soft. Negative for: Tenderness Back: Positive for: Normal Inspection. Negative for: L CVA Tenderness, R CVA Tenderness, Vertebral Tenderness Extremity: Positive for: Normal ROM. Negative for: Deformity Neurologic/Psych: Positive for: Alert, prop and effects designer II-XII, Oriented (x3), Other (alert/ awake, GCS = 15, oriented x 3, NIH stroke scale ~ 0; cooperative; no slurr speech, no facial asymmetries). Negative for: Motor/Sensory Deficits, Facial Droop - Laboratory Results Result Diagrams: 06/05/18 11:18 06/05/18 11:18 Interpretation Of Abn Labs: slightly above normal GLUC level - ECG ECG: Positive for: Interpreted By Me, Viewed By Me Interpretation Of ECG: NSR at 75 bpm, normal axis, RBBB, left anterior fascicular block, voltage criteria LVH, no ectopy, non-specific st changes, ABNL EKG; unchanged compare with old ekg 04/2018 O2 Sat by Pulse Oximetry: 96 (RA) Pulse Ox Interpretation: Normal - Radiology X-Ray: Viewed By Me, Read By Radiologist - Progress ED Course And Treament: Time: 1045 Plan: -- CT Head w/o Contrast -- EKG -- CMP -- Total Creatinine Kinase -- Magnesium -- Phosphorus -- Thyroid Stimulation -- Troponin I -- CBC with differentials -- CXR Two Views -- Glucose, POC Routine -- Asprin 325 mg PO -- Sodium Chloride IV 150 mls/hr -- Orthostatic BP -- Urinalysis Time: [address] RESULTS FINDINGS: HEMORRHAGE: No intracranial hemorrhage. BRAIN: Again noted are partially cystic encephalomalacia changes right temporal lobe possibly related to old trauma. There is ex vacuo dilatation of the right temporal horn. . Minimal encephalomalacia changes left temporal lobe. . Findings likely represent sequela of old trauma ; coup/contrecoup type injuries Mild diffuse/confluent chronic periventricular white matter ischemic change. Few tiny bilateral basal nuclei lacunar type infarcts . Moderate volume loss slightly more central evidenced by slight disproportionate enlargement of the ventricles compared sulci Minor vascular calcifications both carotid siphons VENTRICLES: Unremarkable. No hydrocephalus. CALVARIUM: No acute calvarial fractures. There appears to be mild right periorbital soft tissue swelling which extends slightly superiorly into the soft tissues of the right periorbital and frontal scalp region. . There is also small left parasagittal posterior superior parietal scalp contusion. PARANASAL SINUSES: Unremarkable as visualized. No significant inflammatory changes. MASTOID AIR CELLS: Unremarkable as visualized. No inflammatory changes. 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 . Mild chronic periventricular white matter ischemic change with suspected few chronic bilateral basal nuclei lacunar type infarcts. Moderate atrophy which is slightly more central Mild right periorbital tissue swelling extending superiorly into the supraorbital soft tissues. There is also a mild left parasagittal posterior superior parietal scalp contusion Time: 1240 -- Case discussed with Dr. Gonzalez who was made aware and agrees with admission. Time: 1322 CXR RESULTS FINDINGS: LUNGS: There mild localized hazy appearance in the middle lobe region which could represent the mild subsegmental atelectasis or developing infiltrate. PLEURA: No significant pleural effusion identified. No pneumothorax apparent. CARDIOVASCULAR: Normal. OSSEOUS STRUCTURES: No significant abnormalities. VISUALIZED UPPER ABDOMEN: Normal. OTHER FINDINGS: None. IMPRESSION: There mild localized hazy appearance in the middle lobe region which could represent the mild subsegmental atelectasis or developing infiltrate. Scribe Attestation: Documented by Calista Melendez acting as a scribe for Dr. Channing Alexander MD. Provider Scribe Attestation: All medical record entries made by the Scribe were at my direction and personally dictated by me. I have reviewed the chart and agree that the record accurately reflects my personal performance of the history, physical exam, medical decision making, and the department course for this patient. I have also personally directed, reviewed, and agree with the discharge instructions and disposition. pt remained at baseline mental status pt is comfortable pt is made aware of his medical results agrees with admission 12:30pm Dr Kira ramirez, contacted, made aware, agrees with admission/observation Re-evaluation Time: 12:00 Condition: Re-examined, Improved - Physician Consult Information Time Consulting Physican Contacted: 12:30 Physician Contacted: Bibiana Malone Medical Decision Making Medical Decision Making: Impression: syncope i have consider all the differential diagnosis regarding pt's chief medical complaints/clinical findings, including but are not limited to: syncope/ dizziness A/P: syncope - labs - ct - xray - acs eval - supportive care - observe/reevaluation Disposition - Clinical Impression Clinical Impression: Syncope, Dizziness - Patient ED Disposition Is Patient to be Admitted: Yes Discussed With : Bibiana Malone Counseled Patient/Family Regarding: Studies Performed, Diagnosis, Rx Given - Disposition Disposition Time: 12:35 Condition: STABLE - Pt Status Changed To: Hospital Disposition Of: Observation
--- NOTE | 2018-06-05 11:43 | CT ---
Date of service: 06/05/2018 PROCEDURE: CT HEAD WITHOUT CONTRAST. HISTORY: syncope, hx of seizure COMPARISON: None available. TECHNIQUE: Axial computed tomography images were obtained through the head/brain without intravenous contrast. Radiation dose: Total exam DLP = 785.4 mGy-cm. This CT exam was performed using one or more of the following dose reduction techniques: Automated exposure control, adjustment of the mA and/or kV according to patient size, and/or use of iterative reconstruction technique. FINDINGS: HEMORRHAGE: No intracranial hemorrhage. BRAIN: Again noted are partially cystic encephalomalacia changes right temporal lobe possibly related to old trauma. There is ex vacuo dilatation of the right temporal horn. . Minimal encephalomalacia changes left temporal lobe. . Findings likely represent sequela of old trauma ; coup/contrecoup type injuries Mild diffuse/confluent chronic periventricular white matter ischemic change. Few tiny bilateral basal nuclei lacunar type infarcts . Moderate volume loss slightly more central evidenced by slight disproportionate enlargement of the ventricles compared sulci Minor vascular calcifications both carotid siphons VENTRICLES: Unremarkable. No hydrocephalus. CALVARIUM: No acute calvarial fractures. There appears to be mild right periorbital soft tissue swelling which extends slightly superiorly into the soft tissues of the right periorbital and frontal scalp region. . There is also small left parasagittal posterior superior parietal scalp contusion. PARANASAL SINUSES: Unremarkable as visualized. No significant inflammatory changes. MASTOID AIR CELLS: Unremarkable as visualized. No inflammatory changes. 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 . Mild chronic periventricular white matter ischemic change with suspected few chronic bilateral basal nuclei lacunar type infarcts. Moderate atrophy which is slightly more central Mild right periorbital tissue swelling extending superiorly into the supraorbital soft tissues. There is also a mild left parasagittal posterior superior parietal scalp contusion
[2018-06-05 11:48] LABS: BASO % 0.5 % (0.0-2.0); EOS # 0.1 K/uL (0.0-0.7); EOS % 1.7 % (0.0-4.0); HEMOGLOBIN 12.7 g/dL (12.0-18.0); LYMPH # 0.8 K/uL (1.0-4.3); LYMPH % 11.6 % (20.0-40.0); MEAN CELL VOLUME 87.8 fl (80.0-94.0); MEAN CORPUSCULAR HEMOGLOBIN 29.1 pg (27.0-31.0); MEAN CORPUSCULAR HGB CONC 33.1 g/dL (33.0-37.0); MEAN PLATELET VOLUME 8.3 fl (7.2-11.7); MONO # 0.6 K/uL (0.0-0.8); MONO % 9.6 % (0.0-10.0); NEUT % 76.6 % (50.0-75.0); RBC 4.36 Mil/uL (4.40-5.90); RED CELL DISTRIBUTION WIDTH 13.9 % (11.5-14.5); WHITE BLOOD COUNT 6.6 K/uL (4.8-10.8)
[2018-06-05] MEDS: Sodium Chloride 0.9% 1,000 ML IV SCH ×2 (12:10→17:24)
[2018-06-05 12:20] LABS: ALB/GLOB RATIO 1.5 (1.0-2.1); ALT/SGPT 22 U/L (21-72); AST/SGOT 27 U/L (17-59); BLOOD UREA NITROGEN 16 mg/dl (9-20); CALCIUM 9.1 mg/dL (8.4-10.2); GFR AFRICAN-AMERICAN > 60; GFR NON-AFRICAN AMERICAN > 60
--- NOTE | 2018-06-05 13:11 | RAD ---
Date of service: 06/05/2018 HISTORY: syncope COMPARISON: Comparison chest 09/15/2017 TECHNIQUE: Chest PA and lateral FINDINGS: LUNGS: There mild localized hazy appearance in the middle lobe region which could represent the mild subsegmental atelectasis or developing infiltrate. PLEURA: No significant pleural effusion identified. No pneumothorax apparent. CARDIOVASCULAR: Normal. OSSEOUS STRUCTURES: No significant abnormalities. VISUALIZED UPPER ABDOMEN: Normal. OTHER FINDINGS: None. IMPRESSION: There mild localized hazy appearance in the middle lobe region which could represent the mild subsegmental atelectasis or developing infiltrate.
[2018-06-05 15:20] LABS: URINE BILIRUBIN NEGATIVE (NEGATIVE); URINE BLOOD NEGATIVE (NEGATIVE); URINE CLARITY SLIGHTY-CLOUDY (Clear); URINE COLOR YELLOW (YELLOW); URINE GLUCOSE (UA) NEG (Normal); URINE LEUKOCYTE ESTERASE NEG Leu/uL (Negative); URINE PROTEIN NEGATIVE (NEGATIVE); URINE UROBILINOGEN 0.2-1.0 mg/dL (0.2-1.0)
--- NOTE | 2018-06-05 16:08 | CP.PCM.HP ---
History of Present Illness - History of Present Illness History of Present Illness: CC: Passed out History of Present Illness: A 71 y/o male with H/O Seizure on Keppra, SDH, & Hyponatremia presents to the ED with syncope while at a local store prior to ED arrival. Patient states he felt mild diffuse headache and persistent dizziness/lightheadedness and passed out at the counter of the store. Patient believes he was caught by store medical receptionist prior to fall. Denies any incontinence or Tongue bite. Patient describes extensive sweating during syncopal episode. Patient subsequently arrived to the ED for further eval. Denies chest pain/palpitations/ shortness of breath.Denies fever/chills. Denies abdominal pain/nausea/vomiting. Denies speech change. Denies numbness/tingling/focal weakness Had Left eye cataract Surgery yesterday. Present on Admission - Present on Admission Any Indicators Present on Admission: No Review of Systems - Review of Systems All systems: reviewed and no additional remarkable complaints except Past Patient History - Infectious Disease Hx of Infectious Diseases: None - Past Medical History & Family History Past Medical History?: Yes Past Family History: Reviewed and not pertinent - Past Social History Smoking Status: Former Smoker Alcohol: < 2 Drinks/Day Drugs: Denies - CARDIAC Hx Hypercholesterolemia: Yes Hx Hypertension: Yes - PULMONARY Hx Respiratory Disorders: Yes - NEUROLOGICAL Hx Seizures: Yes - HEENT Hx HEENT Problems: Yes - RENAL Hx Chronic Kidney Disease: No - ENDOCRINE/METABOLIC Hx Endocrine Disorders: No - HEMATOLOGICAL/ONCOLOGICAL Hx Human Immunodeficiency Virus (HIV): No - INTEGUMENTARY Hx Dermatological Problems: No - MUSCULOSKELETAL/RHEUMATOLOGICAL Hx Arthritis: Yes Hx Fractures: Yes - GASTROINTESTINAL Hx Gastrointestinal Disorders: Yes - GENITOURINARY/GYNECOLOGICAL Hx Genitourinary Disorders: No - PSYCHIATRIC Hx Psychophysiologic Disorder: No - SURGICAL HISTORY Hx Surgeries: Yes Hx Orthopedic Surgery: Yes (LEFT SHOULDER) - ANESTHESIA Hx Anesthesia: Yes Hx Anesthesia Reactions: No Hx Malignant Hyperthermia: No Meds Allergies/Adverse Reactions: Allergies Allergy/AdvReac Type Severity Reaction Status Date / Time No Known Allergies Allergy Verified 05/15/18 23:05 Physical Exam - Constitutional Appears: Well, No Acute Distress - Head Exam Head Exam: ATRAUMATIC, NORMAL INSPECTION, NORMOCEPHALIC - Eye Exam Eye Exam: EOMI, Normal appearance, PERRL Pupil Exam: NORMAL ACCOMODATION, PERRL - ENT Exam ENT Exam: Mucous Membranes Dry, Normal Exam - Neck Exam Neck exam: Positive for: Normal Inspection - Respiratory Exam Respiratory Exam: Clear to Auscultation Bilateral, NORMAL BREATHING PATTERN - Cardiovascular Exam Cardiovascular Exam: REGULAR RHYTHM, +S1, +S2 - GI/Abdominal Exam GI & Abdominal Exam: Normal Bowel Sounds, Soft. absent: Tenderness - Extremities Exam Extremities exam: Positive for: full ROM, normal capillary refill Additional comments: Left Elbow abrasion - Back Exam Back exam: NORMAL INSPECTION - Neurological Exam Neurological exam: Alert, CN II-XII Intact, Normal Gait, Oriented x3, Reflexes Normal - Psychiatric Exam Psychiatric exam: Normal Affect, Normal Mood - Skin Skin Exam: Dry, Intact, Normal Color, Warm Results - Vital Signs Recent Vital Signs: Last Vital Signs Temp 98.4 F 06/05/18 14:05 Pulse 78 06/05/18 15:00 Resp 16 06/05/18 15:00 BP 149/77 06/05/18 15:00 Pulse Ox 96 06/05/18 16:05 - Labs Result Diagrams: 06/05/18 11:18 06/05/18 11:18 Labs: Laboratory Results - last 24 hr 06/05/18 06/05/18 06/05/18 10:14 11:18 11:18 WBC 6.6 RBC 4.36 L Hgb 12.7 Hct 38.3 MCV 87.8 MCH 29.1 MCHC 33.1 RDW 13.9 Plt Count 191 MPV 8.3 Neut % (Auto) 76.6 H Lymph % (Auto) 11.6 L [place] % (Auto) 9.6 Eos % (Auto) 1.7 Baso % (Auto) 0.5 Neut # (Auto) 5.0 Lymph # (Auto) 0.8 L [place] # (Auto) 0.6 Eos # (Auto) 0.1 Baso # (Auto) 0.0 Sodium 141 Potassium 4.2 Chloride 102 Carbon Dioxide 30 Anion Gap 13 BUN 16 Creatinine 1.1 Est GFR ( Amer) > 60 Est GFR (Non-Af Amer) > 60 POC Glucose (mg/dL) 159 H Random Glucose 90 Calcium 9.1 Phosphorus 3.2 Magnesium 2.2 Total Bilirubin 0.5 AST 27 ALT 22 Alkaline Phosphatase 95 Total Creatine Kinase 156 Troponin I < 0.0120 Total Protein 6.6 Albumin 4.0 Globulin 2.7 Albumin/Globulin Ratio 1.5 TSH 3rd Generation 1.77 Urine Color Urine Clarity Urine pH Ur Specific [place] Urine Protein Urine Glucose (UA) Urine Ketones Urine Blood Urine Nitrate Urine Bilirubin Urine Urobilinogen Ur Leukocyte Esterase Urine RBC (Auto) Urine Microscopic WBC Hyaline Casts 06/05/18 14:41 WBC RBC Hgb Hct MCV MCH MCHC RDW Plt Count MPV Neut % (Auto) Lymph % (Auto) [place] % (Auto) Eos % (Auto) Baso % (Auto) Neut # (Auto) Lymph # (Auto) [place] # (Auto) Eos # (Auto) Baso # (Auto) Sodium Potassium Chloride Carbon Dioxide Anion Gap BUN Creatinine Est GFR ( Amer) Est GFR (Non-Af Amer) POC Glucose (mg/dL) Random Glucose Calcium Phosphorus Magnesium Total Bilirubin AST ALT Alkaline Phosphatase Total Creatine Kinase Troponin I Total Protein Albumin Globulin Albumin/Globulin Ratio TSH 3rd Generation Urine Color Yellow Urine Clarity Slighty-cloudy Urine pH 5.0 Ur Specific [place] 1.020 Urine Protein Negative Urine Glucose (UA) Neg Urine Ketones Negative Urine Blood Negative Urine Nitrate Negative Urine Bilirubin Negative Urine Urobilinogen 0.2-1.0 Ur Leukocyte Esterase Neg Urine RBC (Auto) 3 Urine Microscopic WBC 2 Hyaline Casts 3-5 H - EKG Data EKG comments: Date of service: 06/05/2018: EKG Measurement Heart Rate 69 AXES ID 168 P 69 QRSd 122 QRS -54 QT 394 T -32 QTc 422 <Conclusion> Sinus rhythm with occasional premature ventricular complexes Right bundle branch block Left anterior fascicular block Bifascicular block Moderate voltage criteria for LVH, may be normal variant Cannot rule out Septal infarct, age undetermined T wave abnormality, consider inferior ischemia Abnormal ECG - Imaging and Cardiology CT scan - head Status: Report reviewed by me Additional comment: PROCEDURE: CT HEAD WITHOUT CONTRAST. HISTORY: syncope, hx of seizure COMPARISON: None available. TECHNIQUE: Axial computed tomography images were obtained through the head/brain without intravenous contrast. Radiation dose: Total exam DLP = 785.4 mGy-cm. This CT exam was performed using one or more of the following dose reduction techniques: Automated exposure control, adjustment of the mA and/or kV according to patient size, and/or use of iterative reconstruction technique. FINDINGS: HEMORRHAGE: No intracranial hemorrhage. BRAIN: Again noted are partially cystic encephalomalacia changes right temporal lobe possibly related to old trauma. There is ex vacuo dilatation of the right temporal horn. . Minimal encephalomalacia changes left temporal lobe. . Findings likely represent sequela of old trauma ; coup/contrecoup type injuries Mild diffuse/confluent chronic periventricular white matter ischemic change. Few tiny bilateral basal nuclei lacunar type infarcts . Moderate volume loss slightly more central evidenced by slight disproportionate enlargement of the ventricles compared sulci Minor vascular calcifications both carotid siphons VENTRICLES: Unremarkable. No hydrocephalus. CALVARIUM: No acute calvarial fractures. There appears to be mild right periorbital soft tissue swelling which extends slightly superiorly into the soft tissues of the right periorbital and frontal scalp region. . There is also small left parasagittal posterior superior parietal scalp contusion. PARANASAL SINUSES: Unremarkable as visualized. No significant inflammatory changes. MASTOID AIR CELLS: Unremarkable as visualized. No inflammatory changes. 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 . Mild chronic periventricular white matter ischemic change with suspected few chronic bilateral basal nuclei lacunar type infarcts. Moderate atrophy which is slightly more central Mild right periorbital tissue swelling extending superiorly into the supraorbital soft tissues. There is also a mild left parasagittal posterior superior parietal scalp contusion Chest x-ray Status: Report reviewed by me Additional comment: HISTORY: syncope COMPARISON: Comparison chest 09/15/2017 TECHNIQUE: Chest PA and lateral FINDINGS: LUNGS: There mild localized hazy appearance in the middle lobe region which could represent the mild subsegmental atelectasis or developing infiltrate. PLEURA: No significant pleural effusion identified. No pneumothorax apparent. CARDIOVASCULAR: Normal. OSSEOUS STRUCTURES: No significant abnormalities. VISUALIZED UPPER ABDOMEN: Normal. OTHER FINDINGS: None. IMPRESSION: There mild localized hazy appearance in the middle lobe region which could represent the mild subsegmental atelectasis or developing infiltrate. [ Reading ] [ Conclusion ] Assessment & Plan (1) Passed out Assessment and Plan: Seizure Vs Syncope Continue Keppra Serial troponin and EKG TTE Neurology Consult Neuro check IVF Status: Acute Priority: High (2) H/O: CVA (cerebrovascular accident) Status: Acute (3) S/P cataract surgery Assessment and Plan: Follow up with Insurance Risk Surveyor Status: Acute Priority: Low
[2018-06-06] MEDS: Sodium Chloride 0.9% 1,000 ML IV SCH ×2 (00:05→07:08)
[2018-06-06] MEDS: Multivitamin With Minerals Tab PO SCH (08:43)
[2018-06-06] MEDS: Pravastatin Sodium 40 MG TAB PO SCH (08:43)
[2018-06-07] MEDS: Pravastatin Sodium 40 MG TAB PO SCH (08:31)
[2018-06-07] MEDS: Multivitamin With Minerals Tab PO SCH (08:31)
--- NOTE | 2018-06-07 10:14 | CARD ---
APPROVED REPORT Date of service: 06/05/2018 EKG Measurement Heart [id number] <Conclusion> Sinus rhythm with occasional premature ventricular complexes Right bundle branch block Left anterior fascicular block Bifascicular block Moderate voltage criteria for LVH, may be normal variant Cannot rule out Septal infarct, age undetermined T wave abnormality, consider inferior ischemia Abnormal ECG
--- NOTE | 2018-06-07 11:19 | CARD ---
APPROVED REPORT Date of service: 06/05/2018 EKG Measurement Heart [id number] <Conclusion> Normal sinus rhythm Left anterior fascicular block Left ventricular hypertrophy with QRS widening Cannot rule out Anteroseptal infarct, age undetermined Abnormal ECG
--- NOTE | 2018-06-07 13:15 | CP.PCM.PN ---
Subjective - Date & Time of Evaluation Date of Evaluation: 06/06/18 Time of Evaluation: 13:30 Objective - Vital Signs/Intake and Output Vital Signs (last 24 hours): Temp Pulse Resp BP Pulse Ox 97.5 F L 63 20 136/83 98 06/07/18 08:25 06/07/18 09:00 06/07/18 08:25 06/07/18 10:06 06/07/18 08:25 - Medications Medications: Current Medications Acetaminophen (Tylenol 325mg Tab) 650 mg PO Q6 PRN PRN Reason: Pain, Mild (1-3) Last Admin: 06/07/18 08:35 Dose: 650 mg Folic Acid (Folic Acid) 1 mg PO DAILY [facility] Last Admin: 06/07/18 08:31 Dose: 1 mg Levetiracetam (Keppra) 500 mg PO BID [facility] Last Admin: 06/07/18 08:31 Dose: 500 mg Morphine Sulfate (Morphine) 1 mg IVP Q4 PRN PRN Reason: Pain, moderate (4-7) Multivitamins/Minerals (Therapeutic-M Tab) 1 tab PO DAILY [facility] Last Admin: 06/07/18 08:31 Dose: 1 tab Pravastatin Sodium (Pravachol) 40 mg PO DAILY [facility] Last Admin: 06/07/18 08:31 Dose: 40 mg Thiamine HCl (Vitamin B1 Tab) 100 mg PO DAILY [facility] Last Admin: 06/07/18 10:03 Dose: 100 mg - Labs Labs: 06/05/18 11:18 06/05/18 11:18
--- NOTE | 2018-06-07 14:15 | CP.PCM.CON ---
History of Present Illness - History of Present Illness History of Present Illness: Neurology Consultation Note: Mr. 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 He had a syncopal episode at the grocery store yesterday with excessive sweating. He states that he felt lightheaded and "passed out" due to the heat. However, he does not have a good recollection of events after regaining consciousness. He did not have any urinary/bowel incontinence or tongue biting. He states that he takes his Keppra regularly and has not missed any doses. CT head showed right temporal lobe encephalomalacia. Review of Systems - Review of Systems All systems: reviewed and no additional remarkable complaints except Past Patient History - Infectious Disease Hx of Infectious Diseases: None - Past Medical History & Family History Past Medical History?: Yes Past Family History: Reviewed and not pertinent - Past Social History Smoking Status: Former Smoker Alcohol: < 2 Drinks/Day Drugs: Denies - CARDIAC Hx Hypercholesterolemia: Yes Hx Hypertension: Yes - PULMONARY Hx Respiratory Disorders: Yes - NEUROLOGICAL Hx Seizures: Yes - HEENT Hx HEENT Problems: Yes - RENAL Hx Chronic Kidney Disease: No - ENDOCRINE/METABOLIC Hx Endocrine Disorders: No - HEMATOLOGICAL/ONCOLOGICAL Hx Human Immunodeficiency Virus (HIV): No - INTEGUMENTARY Hx Dermatological Problems: No - MUSCULOSKELETAL/RHEUMATOLOGICAL Hx Arthritis: Yes Hx Fractures: Yes - GASTROINTESTINAL Hx Gastrointestinal Disorders: Yes - GENITOURINARY/GYNECOLOGICAL Hx Genitourinary Disorders: No - PSYCHIATRIC Hx Psychophysiologic Disorder: No - SURGICAL HISTORY Hx Surgeries: Yes Hx Orthopedic Surgery: Yes (LEFT SHOULDER) - ANESTHESIA Hx Anesthesia: Yes Hx Anesthesia Reactions: No Hx Malignant Hyperthermia: No Meds Allergies/Adverse Reactions: Allergies Allergy/AdvReac Type Severity Reaction Status Date / Time No Known Allergies Allergy Verified 05/15/18 23:05 - Medications Medications: Current Medications Acetaminophen (Tylenol 325mg Tab) 650 mg PO Q6 PRN PRN Reason: Pain, Mild (1-3) Last Admin: 06/07/18 08:35 Dose: 650 mg Folic Acid (Folic Acid) 1 mg PO DAILY [facility] Last Admin: 06/07/18 08:31 Dose: 1 mg Levetiracetam (Keppra) 500 mg PO BID [facility] Last Admin: 06/07/18 08:31 Dose: 500 mg Morphine Sulfate (Morphine) 1 mg IVP Q4 PRN PRN Reason: Pain, moderate (4-7) Multivitamins/Minerals (Therapeutic-M Tab) 1 tab PO DAILY [facility] Last Admin: 06/07/18 08:31 Dose: 1 tab Pravastatin Sodium (Pravachol) 40 mg PO DAILY [facility] Last Admin: 06/07/18 08:31 Dose: 40 mg Thiamine HCl (Vitamin B1 Tab) 100 mg PO DAILY [facility] Last Admin: 06/07/18 10:03 Dose: 100 mg Physical Exam - Neurological Exam Neurological exam: Alert, CN II-XII Intact, Normal Gait, Oriented x3, Reflexes Normal Results - Vital Signs Recent Vital Signs: Last Vital Signs Temp 97.5 F L 06/07/18 13:38 Pulse 68 06/07/18 13:38 Resp 18 06/07/18 13:38 BP 161/90 H 06/07/18 14:09 Pulse Ox 99 06/07/18 13:38 - Labs Result Diagrams: 06/05/18 11:18 06/05/18 11:18 Assessment & Plan (1) Seizure Assessment and Plan: The patient is back to baseline. I would like him to increase Keppra to 750 mg BID and follow up with outpatient neurology. No further inpatient work-up from a neurological standpoint. Thank you. Status: Acute Priority: Medium
[2018-06-07] MEDS ORDERED: Iodixanol 320 MG/ML 100 ML BOTTLE IV ONE (15:27)
[2018-06-07] MEDS ORDERED: Sodium Chloride 0.9% 100 ML ONE (15:27)
--- NOTE | 2018-06-07 16:53 | CT ---
PROCEDURE: CTA HEAD AND NECK WITH CONTRAST HISTORY: Syncope COMPARISON: None available. TECHNIQUE: Initial noncontrast head CT was performed. Subsequently, CT angiogram of the head and neck were performed after the intravenous administration of 80 mL of Omnipaque 350. Contiguous 1.5mm thick images were obtained in the axial plane of the neck. 2-D coronal and sagittal MPR images were obtained. Imaging postprocessing was performed with 3-D images also obtained. A delayed contrast head CT was also obtained. This CT exam was performed using one or more of the following dose reduction techniques: Automated exposure control, adjustment of the mA and/or kV according to patient size, and/or use of iterative reconstruction technique. Contrast dose: 99 mL Visipaque 320 Radiation dose: Total exam DLP = 711.14 mGy-cm. FINDINGS: HEAD: Right: The intracranial internal carotid artery, and anterior and middle cerebral arteries are widely patent. Left: The intracranial internal carotid artery, and anterior and middle cerebral arteries are widely patent. Posterior circulation: The visualized intracranial vertebral arteries, basilar artery and posterior cerebral arteries are widely patent. There is no endoluminal filling defect to suggest thrombus. There is no intracranial saccular aneurysm. There is no abnormal enhancement on the postcontrast CT. NECK: There is a three vessel aortic arch. There are atherosclerotic calcifications at the origin of the great vessels. There is no stenosis at the origins of the great vessels at the level of the aortic arch. There are mild atherosclerotic calcifications in the right carotid bulb and bilateral proximal internal carotid arteries. Right Carotid: On the right, the common carotid, internal carotid and external carotid arteries are widely patent. There is no hemodynamically significant stenosis in the internal carotid artery by NASCET criteria. Left Carotid: On the left, the common carotid, internal carotid and external carotid arteries are widely patent. There is no hemodynamically significant stenosis in the internal carotid artery by NASCET criteria. The vertebral arteries are widely patent. The left vertebral artery is dominant, an anatomic variant. The visualized soft tissues of the neck are normal. The visualized brain and cervical spine are within normal limits. There is severe centrilobular emphysema in the visualized lungs. IMPRESSION: 1. No evidence of endoluminal thrombus,occlusion or definite significant stenosis in the intracranial arteries. 2. No evidence of hemodynamically significant stenosis in the internal carotid arteries. 3. Patent bilateral vertebral arteries.
--- NOTE | 2018-06-07 23:08 | CP.PCM.PN ---
Subjective - Date & Time of Evaluation Date of Evaluation: 06/07/18 Time of Evaluation: 10:15 Objective - Vital Signs/Intake and Output Vital Signs (last 24 hours): Temp Pulse Resp BP Pulse Ox 97.8 F 66 20 151/79 H 96 06/07/18 18:57 06/07/18 18:57 06/07/18 18:57 06/07/18 18:57 06/07/18 18:57 - Medications Medications: Current Medications Acetaminophen (Tylenol 325mg Tab) 650 mg PO Q6 PRN PRN Reason: Pain, Mild (1-3) Last Admin: 06/07/18 22:05 Dose: 650 mg Folic Acid (Folic Acid) 1 mg PO DAILY [facility] Last Admin: 06/07/18 08:31 Dose: 1 mg Levetiracetam (Keppra) 750 mg PO BID [facility] Last Admin: 06/07/18 17:58 Dose: 750 mg Morphine Sulfate (Morphine) 1 mg IVP Q4 PRN PRN Reason: Pain, moderate (4-7) Multivitamins/Minerals (Therapeutic-M Tab) 1 tab PO DAILY [facility] Last Admin: 06/07/18 08:31 Dose: 1 tab Pravastatin Sodium (Pravachol) 40 mg PO DAILY [facility] Last Admin: 06/07/18 08:31 Dose: 40 mg Thiamine HCl (Vitamin B1 Tab) 100 mg PO DAILY [facility] Last Admin: 06/07/18 10:03 Dose: 100 mg - Labs Labs: 06/05/18 11:18 06/05/18 11:18 Assessment and Plan (1) Passed out Status: Acute (2) H/O: CVA (cerebrovascular accident) Status: Acute (3) S/P cataract surgery Status: Acute
[2018-06-08] MEDS: Multivitamin With Minerals Tab PO SCH (08:27)
[2018-06-08] MEDS: Pravastatin Sodium 40 MG TAB PO SCH (08:27)
[2018-06-08 08:31] VITALS: BP 135/82; PULSE 71; RESP 20; TEMP 97.5; O2SAT 98
--- NOTE | 2018-06-08 08:39 | US ---
Date of service: 06/07/2018 PROCEDURE: Left Upper Extremity Venous Doppler HISTORY: swelling pain COMPARISON: None available. TECHNIQUE: Left upper extremity deep veins, including the lower internal jugular, subclavian, axillary and brachial veins, were evaluated flow, compressibility and respiratory phasicity. FINDINGS: Normal flow, compressibility and respiratory phasicity was observed in the the left upper extremity deep veins. Please note that the superficial basilic vein also was negative for DVT. The cephalic vein could not be adequately visualized. IMPRESSION: No evidence of left upper extremity deep venous thrombosis.
--- NOTE | 2018-06-08 17:23 | CP.PCM.DIS ---
Provider - Provider Date of Admission: 06/06/18 19:02 Attending physician: Bibiana Malone MD Diagnosis - Discharge Diagnosis (1) Passed out Status: Acute Priority: High (2) H/O: CVA (cerebrovascular accident) Status: Acute (3) S/P cataract surgery Status: Acute Priority: Low Hospital Course - Lab Results Lab Results: Most Recent Lab Values WBC 6.6 K/uL (4.8-10.8) 06/05/18 11:18 RBC 4.36 Mil/uL (4.40-5.90) L 06/05/18 11:18 Hgb 12.7 g/dL (12.0-18.0) 06/05/18 11:18 Hct 38.3 % (35.0-51.0) 06/05/18 11:18 MCV 87.8 fl (80.0-94.0) 06/05/18 11:18 MCH 29.1 pg (27.0-31.0) 06/05/18 11:18 MCHC 33.1 g/dL (33.0-37.0) 06/05/18 11:18 RDW 13.9 % (11.5-14.5) 06/05/18 11:18 Plt Count 191 K/uL (130-400) 06/05/18 11:18 MPV 8.3 fl (7.2-11.7) 06/05/18 11:18 Neut % (Auto) 76.6 % (50.0-75.0) H 06/05/18 11:18 Lymph % (Auto) 11.6 % (20.0-40.0) L 06/05/18 11:18 [place] % (Auto) 9.6 % (0.0-10.0) 06/05/18 11:18 Eos % (Auto) 1.7 % (0.0-4.0) 06/05/18 11:18 Baso % (Auto) 0.5 % (0.0-2.0) 06/05/18 11:18 Neut # (Auto) 5.0 K/uL (1.8-7.0) 06/05/18 11:18 Lymph # (Auto) 0.8 K/uL (1.0-4.3) L 06/05/18 11:18 [place] # (Auto) 0.6 K/uL (0.0-0.8) 06/05/18 11:18 Eos # (Auto) 0.1 K/uL (0.0-0.7) 06/05/18 11:18 Baso # (Auto) 0.0 K/uL (0.0-0.2) 06/05/18 11:18 Sodium 141 mmol/l (132-148) 06/05/18 11:18 Potassium 4.2 MMOL/L (3.6-5.0) 06/05/18 11:18 Chloride 102 mmol/L (98-107) 06/05/18 11:18 Carbon Dioxide 30 mmol/L (22-30) 06/05/18 11:18 Anion Gap 13 (10-20) 06/05/18 11:18 BUN 16 mg/dl (9-20) 06/05/18 11:18 Creatinine 1.1 mg/dl (0.8-1.5) 06/05/18 11:18 Est GFR ( Amer) > 60 06/05/18 11:18 Est GFR (Non-Af Amer) > 60 06/05/18 11:18 POC Glucose (mg/dL) 159 mg/dL (65-110) H 06/05/18 10:14 Random Glucose 90 mg/dL (75-110) 06/05/18 11:18 Calcium 9.1 mg/dL (8.4-10.2) 06/05/18 11:18 Phosphorus 3.2 mg/dl (2.5-4.5) 06/05/18 11:18 Magnesium 2.2 MG/DL (1.6-2.3) 06/05/18 11:18 Total Bilirubin 0.5 mg/dl (0.2-1.3) 06/05/18 11:18 AST 27 U/L (17-59) 06/05/18 11:18 ALT 22 U/L (21-72) 06/05/18 11:18 Alkaline Phosphatase 95 U/L (38-126) 06/05/18 11:18 Total Creatine Kinase 156 U/L (55-170) 06/05/18 11:18 Troponin I < 0.0120 ng/mL (0.00-0.120) 06/06/18 05:45 Total Protein 6.6 G/DL (6.3-8.2) 06/05/18 11:18 Albumin 4.0 g/dL (3.5-5.0) 06/05/18 11:18 Globulin 2.7 gm/dL (2.2-3.9) 06/05/18 11:18 Albumin/Globulin Ratio 1.5 (1.0-2.1) 06/05/18 11:18 TSH 3rd Generation 1.77 mIU/ML (0.46-4.68) 06/05/18 11:18 Urine Color Yellow (YELLOW) 06/05/18 14:41 Urine Clarity Slighty-cloudy (Clear) 06/05/18 14:41 Urine pH 5.0 (5.0-8.0) 06/05/18 14:41 Ur Specific [place] 1.020 (1.003-1.030) 06/05/18 14:41 Urine Protein Negative mg/dL (NEGATIVE) 06/05/18 14:41 Urine Glucose (UA) Neg mg/dL (Normal) 06/05/18 14:41 Urine Ketones Negative mg/dL (NEGATIVE) 06/05/18 14:41 Urine Blood Negative (NEGATIVE) 06/05/18 14:41 Urine Nitrate Negative (NEGATIVE) 06/05/18 14:41 Urine Bilirubin Negative (NEGATIVE) 06/05/18 14:41 Urine Urobilinogen 0.2-1.0 mg/dL (0.2-1.0) 06/05/18 14:41 Ur Leukocyte Esterase Neg Ca/uL (Negative) 06/05/18 14:41 Urine RBC (Auto) 3 /hpf (0-3) 06/05/18 14:41 Urine Microscopic WBC 2 /hpf (0-5) 06/05/18 14:41 Hyaline Casts 3-5 /hpf (0-2) H 06/05/18 14:41 Discharge Exam - Head Exam Head Exam: ATRAUMATIC, NORMAL INSPECTION, NORMOCEPHALIC Discharge Plan - Discharge Medications Prescriptions: Levetiracetam [Keppra] 750 mg PO Q12 #60 tablet - Follow Up Plan Condition: STABLE Disposition: HOME/ ROUTINE Instructions: Syncope (Fainting) Referrals: Daryl De Dios MD [Medical Doctor] -
== END 2018-06-08 10:56 | disposition home or self-care (01) | DRG 312 ==
LOC: H.ER 09:55 → H.ERHOLD 12:38 → H.TEL 15:19 → OBSVTOIN 06-06 19:02
PROVIDERS: ADMIT Internal Medicine; ATTEND Internal Medicine
DX: R55 Syncope and collapse (principal); G40.909 Epilepsy, unspecified, not intractable, without status epilepticus; I10 Essential (primary) hypertension; E78.00 Pure hypercholesterolemia, unspecified; G93.89 Other specified disorders of brain; S00.03XA Contusion of scalp, initial encounter; W18.39XA Other fall on same level, initial encounter; Z86.73 Personal history of transient ischemic attack (TIA), and cerebral infarction without residual deficits; Z98.42 Cataract extraction status, left eye; Z98.41 Cataract extraction status, right eye; Z87.891 Personal history of nicotine dependence; Y92.512 Supermarket, store or market as the place of occurrence of the external cause

== ENCOUNTER 2018-09-04 20:19 | Emergency (ER) | payer MEDICARE, MEDICAID ==
[2018-09-04 20:19] VITALS: BMI 24.5
[2018-09-04] MEDS ORDERED: Multivitamin (MVI) 10 ML, Thiamine 100 MG, Folic Acid 1 MG in Dextrose 5%/0.45% NS 1,00... IV ONE (21:45)
[2018-09-04] MEDS ORDERED: levETIRAcetam 1,000 MG in Sodium Chloride 0.9% 100 ML IVPB ONE (21:45)
--- NOTE | 2018-09-04 22:06 | ED PDOC ---
HPI: Seizure Time Seen by Provider: 09/04/18 20:42 Chief Complaint (Nursing): Seizure Chief Complaint (Provider): Seizure History Per: Patient History/Exam Limitations: no limitations Recent Seizure Activity Began: Just Before Arrival Additional Complaint(s): Ramu Romero is a 72 year old male with a past medical history of hypertension, hypercholesterolemia, subdural hematoma, and seizure disorder who is presenting to the ED for evaluation of witnessed seizure onset prior to arrival. Patient was walking on the street and experienced a seizure seen by bystanders, who then called the ambulance. Patient doesnt remember what happened but he thinks he hit his head and complains of a headache. Patient denies any chest pain and is supposed to be taking Keppra. He reports that he is complaint with his medications. PMD: Dr. Lombardo Past Medical History Reviewed: Historical Data, Nursing Documentation, Vital Signs Vital Signs: Last Vital Signs Temp 98.3 F 09/04/18 20:24 Pulse 80 09/04/18 21:50 Resp 80 H 09/04/18 21:50 BP 158/88 H 09/04/18 21:50 Pulse Ox 94 L 09/04/18 21:50 - Medical History PMH: Arthritis, Fractures (lft shoulder), HTN, Hypercholesterolemia, Seizures Denies: HIV, Chronic Kidney Disease Other PMH: subdural hematoma - Surgical History Surgical History: No Surg Hx - Family History Family History: States: Unknown Family Hx - Social History Current smoker - smoking cessation education provided: No Ex-Smoker (has not smoked in the last 12 months): Yes Alcohol: Social Drugs: Denies - Immunization History Hx Tetanus Toxoid Vaccination: No Hx Influenza Vaccination: Yes Hx Pneumococcal Vaccination: No - Home Medications Home Medications: Ambulatory Orders Medication Instructions Recorded Folic Acid 1 mg PO DAILY 09/15/17 Multivitamin [Multi-Vitamin Daily] 1 tab PO DAILY 09/15/17 Pravastatin Sodium [Pravachol] 40 mg PO DAILY 09/15/17 Thiamine [Vitamin B1 Tab] 100 mg PO DAILY #30 tab 09/22/17 traMADol [Ultram] 50 mg PO Q6H PRN #20 tab 04/07/18 Levetiracetam [Keppra] 750 mg PO Q12 #60 tablet 09/05/18 - Allergies Allergies/Adverse Reactions: Allergies Allergy/AdvReac Type Severity Reaction Status Date / Time No Known Allergies Allergy Verified 09/04/18 20:24 Review of Systems ROS Statement: Except As Marked, All Systems Reviewed And Found Negative Neurological: Positive for: Seizures, Headache Physical Exam - Reviewed Nursing Documentation Reviewed: Yes Vital Signs Reviewed: Yes - Physical Exam Appears: Positive for: Well, Non-toxic, No Acute Distress (comfortable) Head Exam: Positive for: ATRAUMATIC, NORMAL INSPECTION, NORMOCEPHALIC Skin: Positive for: Normal Color, Warm, DRY Eye Exam: Positive for: EOMI, Normal appearance, PERRL ENT: Positive for: Normal ENT Inspection Neck: Positive for: Normal, Painless ROM Cardiovascular/Chest: Positive for: Regular Rate, Rhythm. Negative for: Murmur Respiratory: Positive for: Normal Breath Sounds. Negative for: Respiratory Distress Gastrointestinal/Abdominal: Positive for: Normal Exam, Soft. Negative for: Tenderness Back: Positive for: Normal Inspection Extremity: Positive for: Normal ROM. Negative for: Deformity, Swelling Neurologic/Psych: Positive for: Alert, Oriented. Negative for: Motor/Sensory Deficits - Laboratory Results Result Diagrams: 09/04/18 22:15 09/04/18 22:15 - ECG ECG Rhythm: Positive for: Normal QRS, Normal ST Segment, Sinus Rhythm Rate: 78 O2 Sat by Pulse Oximetry: 94 (RA) - Progress Re-evaluation Time: 01:33 Condition: Re-examined, Improved Medical Decision Making Medical Decision Making: Time: 21:35 Impression: reoccurring seizure due to seizure disorder, less likely related to alcohol withdrawal, head injury rue out chronic subdural hematoma Plan: --CT Head --EKG --Alcohol Serum --BMP--Magnesium --CBC --Dextrose --Keppra 22:[address] IMPRESSION: No acute intracranial abnormality. Old area of infarct or contusion at the right temporal lobe region. Clinical correlation advised. Scribe Attestation: Documented byGabriela acting as a scribe for Pina Carreon MD. Provider Scribe Attestation: All medical record entries made by the Scribe were at my direction and personally dictated by me. I have reviewed the chart and agree that the record accurately reflects my personal performance of the history, physical exam, medical decision making, and the department course for this patient. I have also personally directed, reviewed, and agree with the discharge instructions and disposition. Disposition - Clinical Impression Clinical Impression: Seizure disorder - Patient ED Disposition Is Patient to be Admitted: No Counseled Patient/Family Regarding: Studies Performed, Diagnosis, Need For Followup - Disposition Referrals: Yair Lee MD [Staff Provider] - Disposition: Routine/Home Disposition Time: 01:35 Condition: GOOD Additional Instructions: RAMU ROMERO, thank you for letting us take care of you today. Your provider was Pina Carreon MD and you were treated for SEIZURE. The emergency medical care you received today was directed at your acute symptoms. If you were prescribed any medication, please fill it and take as directed. It may take several days for your symptoms to resolve. Return to the Emergency Department if your symptoms worsen, do not improve, or if you have any other problems. Please contact your doctor or call one of the physicians/clinics you have been referred to that are listed on the Patient Visit Information form that is included in your discharge packet. Bring any paperwork you were given at discharge with you along with any medications you are taking to your follow up visit. Our treatment cannot replace ongoing medical care by a primary care provider outside of the emergency department. Thank you for allowing the [facility] team to be part of your care today. If you had an X-Ray or CT scan: A Radiologist will review the ED reading if any change in treatment is needed we will contact you. If you had a blood, urine, or wound culture: It will take several days for the results, if any change in treatment is needed we will contact you. If you had an STI test: It will take 48 hours for the results. Please call after 1 week if you have not heard back. Prescriptions: Levetiracetam [Keppra] 750 mg PO Q12 #60 tablet Instructions: Seizures, Adult (DC)
[2018-09-04 22:24] LABS: BASO # 0.1 K/uL (0.0-0.2); BASO % 0.9 % (0.0-2.0); EOS # 0.2 K/uL (0.0-0.7); EOS % 2.4 % (0.0-4.0); LYMPH # 0.9 K/uL (1.0-4.3); LYMPH % 13.7 % (20.0-40.0); MEAN CELL VOLUME 86.6 fl (80.0-94.0); MEAN CORPUSCULAR HGB CONC 33.5 g/dL (33.0-37.0); MEAN PLATELET VOLUME 7.6 fl (7.2-11.7); MONO # 0.7 K/uL (0.0-0.8); MONO % 10.8 % (0.0-10.0); NEUT # 4.6 K/uL (1.8-7.0); NEUT % 72.2 % (50.0-75.0); RBC 4.47 Mil/uL (4.40-5.90); RED CELL DISTRIBUTION WIDTH 13.8 % (11.5-14.5); WHITE BLOOD COUNT 6.4 K/uL (4.8-10.8)
[2018-09-04 22:42] LABS: BLOOD UREA NITROGEN 20 mg/dl (9-20); CALCIUM 9.1 mg/dL (8.4-10.2); GFR NON-AFRICAN AMERICAN > 60
[2018-09-05 01:57] VITALS: BP 140/86; PULSE 88; RESP 22; TEMP 97.7; O2SAT 98
--- NOTE | 2018-09-05 11:25 | CT ---
Date of service: 09/04/2018 PROCEDURE: CT HEAD WITHOUT CONTRAST. HISTORY: head injury COMPARISON: Comparison is made with 06/05/2018 TECHNIQUE: Axial computed tomography images were obtained through the head/brain without intravenous contrast. Radiation dose: Total exam DLP = 837.6 mGy-cm. This CT exam was performed using one or more of the following dose reduction techniques: Automated exposure control, adjustment of the mA and/or kV according to patient size, and/or use of iterative reconstruction technique. FINDINGS: HEMORRHAGE: No intracranial hemorrhage. BRAIN: Again noted is focal encephalomalacia at right temporal lobe in the right middle fossa may represent old infarct or injury. Mild atrophy and [id number] chronic microvascular white matter ischemic disease is again noted. VENTRICLES: No significant interval change in the ventricles since the previous exam. Extending and dilatation of the posterior horn of the right lateral ventricle is again noted. CALVARIUM: No evidence of acute calvarial fracture. PARANASAL SINUSES: Unremarkable as visualized. No significant inflammatory changes. MASTOID AIR CELLS: Unremarkable as visualized. No inflammatory changes. OTHER FINDINGS: None. IMPRESSION: No evidence of acute intracranial hemorrhage mass effect or midline shift. No significant interval changes in the brain parenchyma noted as discussed above since the prior exam. Preliminary report with concordance findings was submitted by [facility] at 10:21 p.m. on 09/04/2018.
--- NOTE | 2018-09-05 17:02 | CARD ---
APPROVED REPORT Date of service: 09/04/2018 EKG Measurement Heart [id number] NM [id number] <Conclusion> Normal sinus rhythm Left anterior fascicular block Left ventricular hypertrophy with QRS widening Cannot rule out Septal infarct, age undetermined Abnormal ECG
== END 2018-09-05 01:46 | disposition home or self-care (01) ==
LOC: H.ER 20:19
DX: G40.909 Epilepsy, unspecified, not intractable, without status epilepticus (principal); Z87.891 Personal history of nicotine dependence; I10 Essential (primary) hypertension; E78.00 Pure hypercholesterolemia, unspecified; Y93.01 Activity, walking, marching and hiking
CPT/HCPCS: 70450; 80048; 82948; 83735; 85025; 93005; 96374; 96375; 99285; G0480; J1953; J3411; J7042

== ENCOUNTER 2018-09-07 12:34 | Emergency (ER) | payer MEDICAID, MEDICARE ==
[2018-09-07 12:34] VITALS: BMI 24.5
[2018-09-07 14:13] LABS: BASO # 0.1 K/uL (0.0-0.2); BASO % 1.1 % (0.0-2.0); EOS # 0.1 K/uL (0.0-0.7); EOS % 2.2 % (0.0-4.0); HEMOGLOBIN 13.5 g/dL (12.0-18.0); LYMPH # 0.7 K/uL (1.0-4.3); LYMPH % 10.5 % (20.0-40.0); MEAN CELL VOLUME 86.6 fl (80.0-94.0); MEAN CORPUSCULAR HEMOGLOBIN 29.3 pg (27.0-31.0); MEAN CORPUSCULAR HGB CONC 33.8 g/dL (33.0-37.0); MONO # 0.6 K/uL (0.0-0.8); MONO % 8.5 % (0.0-10.0); NEUT # 5.1 K/uL (1.8-7.0); NEUT % 77.7 % (50.0-75.0); NRBC % 0.1 % (0.0-0.0); RBC 4.61 Mil/uL (4.40-5.90); RED CELL DISTRIBUTION WIDTH 14.3 % (11.5-14.5); WHITE BLOOD COUNT 6.5 K/uL (4.8-10.8)
--- NOTE | 2018-09-07 14:16 | ED PDOC ---
Syncope/Near Syncope/Dizziness Time Seen by Provider: 09/07/18 13:15 Chief Complaint (Nursing): Syncope Chief Complaint (Provider): Syncope History Per: Patient History/Exam Limitations: no limitations Onset/Duration Of Symptoms: Hrs (CAPACITOR TESTER) Associated Symptoms Preceding Syncopal Episode: Vertigo Additional Complaint(s): 72 year old male with a history of seizures presents to the ED after a syncopal episode [employer]ACITOR TE[employer]. Patient reports he was at the grocery store when he felt dizzy, then woke up on the floor. He has no recollection of the event and does not know if he hit his head. Patient is compliant with Keppra BID and took one dose this morning. He denies headache or any other medical complaints.bystanders stated that they witnessed seizure like activity. PMD: Dr. Lombardo Past Medical History Reviewed: Historical Data, Nursing Documentation, Vital Signs Vital Signs: Last Vital Signs Temp 98.0 F 09/07/18 12:38 Pulse 93 H 09/07/18 12:38 Resp 16 09/07/18 12:38 BP 172/86 H 09/07/18 12:38 Pulse Ox 99 09/07/18 12:38 - Medical History PMH: Arthritis, Fractures (lft shoulder), HTN, Hypercholesterolemia, Seizures Denies: HIV, Chronic Kidney Disease - Surgical History Other surgeries: Left shoulder surgery, abdominal surgery - Family History Family History: States: Unknown Family Hx - Social History Current smoker - smoking cessation education provided: No Ex-Smoker (has not smoked in the last 12 months): Yes Alcohol: None - Immunization History Hx Tetanus Toxoid Vaccination: No Hx Influenza Vaccination: Yes Hx Pneumococcal Vaccination: No - Home Medications Home Medications: Ambulatory Orders Medication Instructions Recorded RX: Folic Acid 1 mg PO DAILY 09/15/17 RX: Multivitamin [Multi-Vitamin 1 tab PO DAILY 09/15/17 Daily] RX: Pravastatin Sodium [Pravachol] 40 mg PO DAILY 09/15/17 Levetiracetam [Keppra] 750 mg PO Q12 #60 tablet 09/05/18 Diclofenac Opthalmic Drops 1 drop LEFTEYE TID 09/07/18 Famotidine [Pepcid] 40 mg PO DAILY 09/07/18 PrednisoLONE 1% [Pred Forte 1% 1 drop LEFTEYE QID 09/07/18 Opht Susp] - Allergies Allergies/Adverse Reactions: Allergies Allergy/AdvReac Type Severity Reaction Status Date / Time No Known Allergies Allergy Verified 09/04/18 20:24 Review of Systems ROS Statement: Except As Marked, All Systems Reviewed And Found Negative Neurological: Positive for: Dizziness, Other (syncope) Physical Exam - Reviewed Nursing Documentation Reviewed: Yes Vital Signs Reviewed: Yes - Physical Exam Appears: Positive for: Non-toxic, No Acute Distress Head Exam: Positive for: ATRAUMATIC, NORMOCEPHALIC Skin: Positive for: Normal Color, Warm, Dry Eye Exam: Positive for: Normal appearance, EOMI, PERRL ENT: Positive for: Normal ENT Inspection Neck: Positive for: Normal, Painless ROM, Supple Cardiovascular/Chest: Positive for: Regular Rate, Rhythm. Negative for: Murmur Respiratory: Positive for: Normal Breath Sounds. Negative for: Respiratory Distress Gastrointestinal/Abdominal: Positive for: Normal Exam, Soft. Negative for: Tenderness Back: Positive for: Normal Inspection. Negative for: L CVA Tenderness, R CVA Tenderness Extremity: Positive for: Normal ROM (upper and lower). 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 Negative for: Motor/Sensory Deficits, Aphasia, Facial Droop - Laboratory Results Result Diagrams: 09/07/18 14:00 09/07/18 14:00 - ECG O2 Sat by Pulse Oximetry: 99 (RA) Pulse Ox Interpretation: Normal Medical Decision Making Medical Decision Making: Time: 1348 Initial Impression: Syncope rule out infection, electrolyte abnormality Initial Plan: --CMP --Troponin --CBC with differentials Time: 1411 --CT Head w/o contrast 1517 CT Head FINDINGS: HEMORRHAGE: No intracranial hemorrhage appreciated. BRAIN: Chronic infarct right temporal lobe as well as diffuse cerebral atrophy chronic microangiopathy throughout the cerebrum are reiterated. Posterior fossa contents are stable and unremarkable. No mass effect or suspicious extra-axial fluid collection appreciated. Midline brain anatomy remains unremarkable diffusely. VENTRICLES: Unremarkable. No hydrocephalus. CALVARIUM: No destructive bony lesion or displaced fracture identified including through the skullbase. PARANASAL SINUSES: Unremarkable as visualized. No significant inflammatory changes. MASTOID AIR CELLS: Unremarkable as visualized. No inflammatory changes. OTHER FINDINGS: None. IMPRESSION: Stable chronic infarct right temporal lobe. No interval change in age- appropriate age related neuro degenerative changes once again. No intracranial hemorrhage or fracture identified. Time: 1608 --As per the computer records, patient has HTN, high cholesterol, frequent seizures despite patient stating he is compliant with Keppra. Time: 1725 --On reassessment, patient mentions improvement in symptoms. Labs reviewed and demonstrate no clinically significant abnormalities. Gait is steady. Patient is medically stable for discharge home, advised to follow up with his PMD in 1-2 days. ------- Scribe Attestation: Documented by Apoorva Kelly, acting as a scribe for Shyanne Germain MD Provider Scribe Attestation: All medical record entries made by the Scribe were at my direction and personally dictated by me. I have reviewed the chart and agree that the record accurately reflects my personal performance of the history, physical exam, medical decision making, and the department course for this patient. I have also personally directed, reviewed, and agree with the discharge instructions and disposition. Disposition - Clinical Impression Clinical Impression: Seizure - Disposition Disposition Time: 17:25 Condition: IMPROVED Additional Instructions: follow up with Dr Carmen tomorrow for reevaluation and possible increasing medication return to the ED with any worsening or concerning symptoms Instructions: Seizures, Adult (DC) Forms: [employer] ([place]i)
[2018-09-07 14:24] LABS: ALB/GLOB RATIO 1.4 (1.0-2.1); ALBUMIN 4.1 g/dL (3.5-5.0); BLOOD UREA NITROGEN 18 mg/dl (9-20); CALCIUM 9.1 mg/dL (8.4-10.2); GFR NON-AFRICAN AMERICAN > 60
[2018-09-07 14:26] LABS: ALT/SGPT 37 U/L (21-72); AST/SGOT 51 U/L (17-59)
--- NOTE | 2018-09-07 15:21 | CT ---
Date of service: 09/07/2018 PROCEDURE: CT HEAD WITHOUT CONTRAST. HISTORY: fall COMPARISON: Noncontrast head CT 09/04/2018. TECHNIQUE: Axial computed tomography images were obtained through the head/brain without intravenous contrast. Radiation dose: Total exam DLP = 805.00 mGy-cm. This CT exam was performed using one or more of the following dose reduction techniques: Automated exposure control, adjustment of the mA and/or kV according to patient size, and/or use of iterative reconstruction technique. FINDINGS: HEMORRHAGE: No intracranial hemorrhage appreciated. BRAIN: Chronic infarct right temporal lobe as well as diffuse cerebral atrophy chronic microangiopathy throughout the cerebrum are reiterated. Posterior fossa contents are stable and unremarkable. No mass effect or suspicious extra-axial fluid collection appreciated. Midline brain anatomy remains unremarkable diffusely. VENTRICLES: Unremarkable. No hydrocephalus. CALVARIUM: No destructive bony lesion or displaced fracture identified including through the skullbase. PARANASAL SINUSES: Unremarkable as visualized. No significant inflammatory changes. MASTOID AIR CELLS: Unremarkable as visualized. No inflammatory changes. OTHER FINDINGS: None. IMPRESSION: Stable chronic infarct right temporal lobe. No interval change in age-appropriate age related neuro degenerative changes once again. No intracranial hemorrhage or fracture identified.
[2018-09-07 20:37] VITALS: BP 148/94; PULSE 98; RESP 16; TEMP 97.6
[2018-09-08 22:13] VITALS: O2SAT 99
== END 2018-09-07 20:45 | disposition home or self-care (01) ==
LOC: H.ER 12:34
DX: R56.9 Unspecified convulsions (principal); E78.00 Pure hypercholesterolemia, unspecified; I10 Essential (primary) hypertension; I73.9 Peripheral vascular disease, unspecified

== ENCOUNTER 2018-09-28 10:57 | Emergency (ER) | payer MEDICAID, MEDICARE, OTHER ==
[2018-09-28 10:57] VITALS: BMI 24.7
[2018-09-28 11:02] VITALS: O2SAT 98
--- NOTE | 2018-09-28 12:01 | ED PDOC ---
HPI: Seizure Time Seen by Provider: 09/28/18 11:36 Chief Complaint (Nursing): Seizure Chief Complaint (Provider): Seizure History Per: Patient History/Exam Limitations: no limitations Recent Seizure Activity Began: Unknown, Just Before Arrival Number Of Seizures: One Length Of Seizures (Duration): Unknown Additional Complaint(s): 72 year old male with pmHx of seizure disorder, arrives to ED for an evaluation of a possible seizure [employer]. Patient states he was at a voting site when he suddenly fell and loss consciousness. He is unsure if symptoms are similar to previous episodes but notes that he took his Keppra this morning. Patient does not offer any further medical complaints as he currently feels well. PCP: Dr. Johnny Lombardo Past Medical History Reviewed: Historical Data, Nursing Documentation, Vital Signs Vital Signs: Last Vital Signs Temp 98.5 F 09/28/18 11:01 Pulse 80 09/28/18 11:01 Resp 18 09/28/18 11:01 BP 176/99 H 09/28/18 11:01 Pulse Ox 98 09/28/18 11:01 - Medical History PMH: Arthritis, Fractures (lft shoulder), HTN, Hypercholesterolemia, Seizures Denies: HIV, Chronic Kidney Disease - Surgical History Surgical History: Cholecystectomy - Family History Family History: States: Unknown Family Hx - Immunization History Hx Tetanus Toxoid Vaccination: No Hx Influenza Vaccination: Yes Hx Pneumococcal Vaccination: No - Home Medications Home Medications: Ambulatory Orders Medication Instructions Recorded RX: Folic Acid 1 mg PO DAILY 09/15/17 RX: Multivitamin [Multi-Vitamin 1 tab PO DAILY 09/15/17 Daily] RX: Pravastatin Sodium [Pravachol] 40 mg PO DAILY 09/15/17 Levetiracetam [Keppra] 750 mg PO Q12 #60 tablet 09/05/18 Acetaminophen [Tylenol 325mg tab] 650 mg PO Q6H PRN 7 Days tab 09/23/18 - Allergies Allergies/Adverse Reactions: Allergies Allergy/AdvReac Type Severity Reaction Status Date / Time No Known Allergies Allergy Verified 09/28/18 11:12 Review of Systems ROS Statement: Except As Marked, All Systems Reviewed And Found Negative Neurological: Positive for: Seizures (unsure), Headache (frontal), Other (LOC) Physical Exam - Reviewed Nursing Documentation Reviewed: Yes Vital Signs Reviewed: Yes - Physical Exam Appears: Positive for: Non-toxic, No Acute Distress Head Exam: Positive for: ATRAUMATIC, NORMAL INSPECTION, NORMOCEPHALIC Skin: Positive for: Normal Color Eye Exam: Positive for: Normal appearance, EOMI, PERRL ENT: Positive for: Normal ENT Inspection Neck: Positive for: Normal Cardiovascular/Chest: Positive for: Regular Rate, Rhythm, Chest Non Tender Respiratory: Positive for: Normal Breath Sounds. Negative for: Respiratory Distress Gastrointestinal/Abdominal: Positive for: Soft, Other (wounds of laparoscopy noted to upper abdomen). Negative for: Tenderness, Guarding, Rebound Extremity: Positive for: Normal ROM (upper/lower) Neurologic/Psych: Positive for: Alert, Oriented. Negative for: Motor/Sensory Deficits - Laboratory Results Result Diagrams: 09/28/18 12:12 09/28/18 12:12 - ECG O2 Sat by Pulse Oximetry: 98 (RA) Pulse Ox Interpretation: Normal - Progress Re-evaluation Time: 16:00 Condition: Re-examined, Improved Medical Decision Making Medical Decision Making: Initial Impression: Recurrent seizures Initial Plan: * EKG * Labs * Keppra 100ml IVPB * Accucheck Time: 1225 --Accucheck: 107 Time: 14:18 Patient's labs were reviewed and are unremarkable. Will reassess patient. Scribe Attestation: Documented by Arianna Porter, acting as a scribe for Pina Carreon MD. Provider Scribe Attestation: All medical record entries made by the Scribe were at my direction and personal ly dictated by me. I have reviewed the chart and agree that the record accurately reflects my personal performance of the history, physical exam, medical decision making, and the department course for this patient. I have also personally directed, reviewed, and agree with the discharge instructions and disposition. Disposition - Clinical Impression Clinical Impression: Frequent seizures - Patient ED Disposition Is Patient to be Admitted: No Doctor Will See Patient In The: Office Counseled Patient/Family Regarding: Studies Performed, Diagnosis, Need For Followup - Disposition Referrals: Yair Lee MD [Staff Provider] - Disposition: Routine/Home Disposition Time: 16:02 Condition: GOOD Additional Instructions: AMANDEEP ROMERO, thank you for letting us take care of you today. Your provider was Pina Carreon MD and you were treated for SEIZURE. The emergency medical care you received today was directed at your acute symptoms. If you were prescribed any medication, please fill it and take as directed. It may take several days for your symptoms to resolve. Return to the Emergency Department if your symptoms worsen, do not improve, or if you have any other problems. Please contact your doctor or call one of the physicians/clinics you have been referred to that are listed on the Patient Visit Information form that is included in your discharge packet. Bring any paperwork you were given at discharge with you along with any medications you are taking to your follow up visit. Our treatment cannot replace ongoing medical care by a primary care provider outside of the emergency department. Thank you for allowing the [facility] [employer] team to be part of your care today. If you had an X-Ray or CT scan: A Radiologist will review the ED reading if any change in treatment is needed we will contact you. If you had a blood, urine, or wound culture: It will take several days for the results, if any change in treatment is needed we will contact you. If you had an STI test: It will take 48 hours for the results. Please call after 1 week if you have not heard back. Instructions: Seizures, Adult (DC)
[2018-09-28 12:28] LABS: BASO # 0.1 K/uL (0.0-0.2); EOS # 0.2 K/uL (0.0-0.7); EOS % 3.7 % (0.0-4.0); HEMOGLOBIN 11.7 g/dL (12.0-18.0); LYMPH % 16.4 % (20.0-40.0); MEAN CELL VOLUME 90.3 fl (80.0-94.0); MEAN CORPUSCULAR HEMOGLOBIN 28.9 pg (27.0-31.0); MEAN PLATELET VOLUME 8.1 fl (7.2-11.7); MONO # 0.6 K/uL (0.0-0.8); MONO % 9.9 % (0.0-10.0); NEUT # 4.1 K/uL (1.8-7.0); NRBC % 0.1 % (0.0-0.0); RBC 4.05 Mil/uL (4.40-5.90); RED CELL DISTRIBUTION WIDTH 13.7 % (11.5-14.5)
[2018-09-28 12:36] LABS: BLOOD UREA NITROGEN 21 mg/dl (9-20); CALCIUM 8.4 mg/dL (8.4-10.2); GFR NON-AFRICAN AMERICAN > 60
[2018-09-28 16:36] VITALS: BP 140/82; PULSE 70; RESP 19; TEMP 98.2
--- NOTE | 2018-09-28 18:22 | CARD ---
APPROVED REPORT Date of service: 09/28/2018 EKG Measurement Heart [id number] <Conclusion> Normal sinus rhythm Left anterior fascicular block Minimal voltage criteria for LVH, may be normal variant Septal infarct, age undetermined Abnormal ECG
== END 2018-09-28 16:37 | disposition home or self-care (01) ==
LOC: H.ER 10:57
DX: G40.909 Epilepsy, unspecified, not intractable, without status epilepticus (principal); E78.00 Pure hypercholesterolemia, unspecified; I10 Essential (primary) hypertension
CPT/HCPCS: 80048; 82948; 83735; 85025; 93005; 96365; 99285; J1953

== ENCOUNTER 2018-10-30 14:04 | Emergency (ER) | payer OTHER ==
[2018-10-30 14:04] VITALS: BMI 24.7
[2018-10-30 14:15] VITALS: RESP 18
--- NOTE | 2018-10-30 15:52 | ED PDOC ---
HPI: General Adult Time Seen by Provider: 10/30/18 14:26 Chief Complaint (Nursing): Altered Mental Status Chief Complaint (Provider): Dizziness History Per: Patient History/Exam Limitations: no limitations Onset/Duration Of Symptoms: Mins (prior to arrival) Current Symptoms Are (Timing): Still Present Additional Complaint(s): 73 year old male with a history of seizures presents to the ED complaining of dizziness. 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 He does not remember what happened exactly. Dizziness is intermitent and was triggered by the volunteering. Recently changed medications from Keppra to another medication that he does not remember the name of. Also does not remember when his last seizure was. Patient did not fall, lose consciousness or have a seizure. PMD: Dr. Lr Past Medical History Reviewed: Historical Data, Nursing Documentation, Vital Signs Vital Signs: Last Vital Signs Temp 98.1 F 10/30/18 14:13 Pulse 73 10/30/18 14:13 Resp 18 10/30/18 14:13 BP 170/88 H 10/30/18 14:13 Pulse Ox 97 10/30/18 14:13 - Medical History PMH: Arthritis, Fractures (lft shoulder), HTN, Hypercholesterolemia, Seizures Denies: HIV, Chronic Kidney Disease - Surgical History Surgical History: Cholecystectomy - Family History Family History: States: Unknown Family Hx - Immunization History Hx Tetanus Toxoid Vaccination: No Hx Influenza Vaccination: Yes Hx Pneumococcal Vaccination: No - Home Medications Home Medications: Ambulatory Orders Medication Instructions Recorded Folic Acid 1 mg PO DAILY 09/15/17 Multivitamin [Multi-Vitamin Daily] 1 tab PO DAILY 09/15/17 Pravastatin Sodium [Pravachol] 40 mg PO DAILY 09/15/17 Levetiracetam [Keppra] 750 mg PO Q12 #60 tablet 09/05/18 Acetaminophen [Tylenol 325mg tab] 650 mg PO Q6H PRN 7 Days tab 09/23/18 - Allergies Allergies/Adverse Reactions: Allergies Allergy/AdvReac Type Severity Reaction Status Date / Time No Known Allergies Allergy Verified 09/28/18 11:12 Review of Systems ROS Statement: Except As Marked, All Systems Reviewed And Found Negative Neurological: Positive for: Dizziness Physical Exam - Reviewed Nursing Documentation Reviewed: Yes Vital Signs Reviewed: Yes - Physical Exam Appears: Positive for: Non-toxic, No Acute Distress Head Exam: Positive for: ATRAUMATIC, NORMAL INSPECTION, NORMOCEPHALIC Skin: Positive for: Normal Color, Warm, Dry Eye Exam: Positive for: Normal appearance, EOMI, PERRL. Negative for: Nystagmus Neck: Positive for: Normal, Painless ROM, Supple Cardiovascular/Chest: Positive for: Regular Rate, Rhythm. Negative for: Murmur Respiratory: Positive for: Normal Breath Sounds. Negative for: Respiratory Distress Gastrointestinal/Abdominal: Positive for: Normal Exam, Soft. Negative for: Tenderness Extremity: Positive for: Normal ROM (upper and lower extremities). Negative for: Deformity Neurologic/Psych: Positive for: Alert, Oriented, Cerebellar Tests (negative), Gait (steady). Negative for: Motor/Sensory Deficits - Laboratory Results Result Diagrams: 10/30/18 16:50 10/30/18 16:50 - ECG ECG: Positive for: Interpreted By Me, Viewed By Me ECG Rhythm: Positive for: Normal QRS, Normal ST Segment, Sinus Rhythm Interpretation Of Abn EKG: LVH Rate: 78 O2 Sat by Pulse Oximetry: 97 (RA) Pulse Ox Interpretation: Normal - Progress Re-evaluation Time: 18:16 Condition: Re-examined, Improved Medical Decision Making Medical Decision Makin:59 Impression: dizziness Consider orthostatic dizziness, dehydration and vertigo; peripheral vertigo like BPPV and vestibular neuritis. Also consider central vertigo such as cerebellar CVA Initial Plan: --BMP --CBC --EKG --Troponin --NS IV --Antivert 25 mg PO --NS IV Scribe Attestation: Documented by Jonelle Harris acting as a scribe for Pina Carreon MD Provider Scribe Attestation: All medical record entries made by the Scribe were at my direction and personally dictated by me. I have reviewed the chart and agree that the record accurately reflects my personal performance of the history, physical exam, medical decision making, and the department course for this patient. I have also personally directed, reviewed, and agree with the discharge instructions and disposition. Disposition - Clinical Impression Clinical Impression: Dizziness - Patient ED Disposition Is Patient to be Admitted: No Doctor Will See Patient In The: Office Counseled Patient/Family Regarding: Studies Performed, Diagnosis, Need For Followup - Disposition Disposition: Routine/Home Disposition Time: 18:17 Condition: GOOD Additional Instructions: AMANDEEP ROMERO, thank you for letting us take care of you today. Your provider was Pina Carreon MD and you were treated for DIZZINESS. The emergency medical care you received today was directed at your acute symptoms. If you were prescribed any medication, please fill it and take as directed. It may take s everal days for your symptoms to resolve. Return to the Emergency Department if your symptoms worsen, do not improve, or if you have any other problems. Please contact your doctor or call one of the physicians/clinics you have been referred to that are listed on the Patient Visit Information form that is included in your discharge packet. Bring any paperwork you were given at discharge with you along with any medications you are taking to your follow up visit. Our treatment cannot replace ongoing medical care by a primary care provider outside of the emergency department. [facility]. If you had an X-Ray or CT scan: A Radiologist will review the ED reading if any change in treatment is needed we will contact you. If you had a blood, urine, or wound culture: It will take several days for the results, if any change in treatment is needed we will contact you. If you had an STI test: It will take 48 hours for the results. Please call after 1 week if you have not heard back. Instructions: Dizziness, Nonvertigo, (DC)
[2018-10-30] MEDS ORDERED: Sodium Chloride 0.9% 1,000 ML IV STA (16:00)
[2018-10-30 17:04] LABS: BASO # 0.1 K/uL (0.0-0.2); BASO % 1.4 % (0.0-2.0); EOS # 0.1 K/uL (0.0-0.7); EOS % 2.5 % (0.0-4.0); HEMOGLOBIN 11.7 g/dL (12.0-18.0); LYMPH # 0.8 K/uL (1.0-4.3); MEAN CELL VOLUME 87.9 fl (80.0-94.0); MEAN CORPUSCULAR HEMOGLOBIN 29.3 pg (27.0-31.0); MEAN CORPUSCULAR HGB CONC 33.3 g/dL (33.0-37.0); MONO # 0.4 K/uL (0.0-0.8); MONO % 9.5 % (0.0-10.0); NEUT # 3.1 K/uL (1.8-7.0); NEUT % 68.6 % (50.0-75.0); NRBC % 0.1 % (0.0-0.0); RBC 3.99 Mil/uL (4.40-5.90); RED CELL DISTRIBUTION WIDTH 14.1 % (11.5-14.5); WHITE BLOOD COUNT 4.5 K/uL (4.8-10.8)
[2018-10-30 17:10] LABS: BLOOD UREA NITROGEN 20 mg/dl (9-20); CALCIUM 9.3 mg/dL (8.4-10.2); GFR NON-AFRICAN AMERICAN > 60
[2018-10-30 18:51] VITALS: BP 166/83; PULSE 69; TEMP 98.5; O2SAT 99
--- NOTE | 2018-10-31 17:07 | CARD ---
APPROVED REPORT Date of service: 10/30/2018 EKG Measurement Heart [id number] <Conclusion> Normal sinus rhythm Left anterior fascicular block Left ventricular hypertrophy with QRS widening Abnormal ECG
== END 2018-10-30 18:45 | disposition home or self-care (01) ==
LOC: H.ER 14:04
DX: R42 Dizziness and giddiness (principal); I10 Essential (primary) hypertension
CPT/HCPCS: 80048; 84484; 85025; 93005; 96360; 99285; J7030